=== PATIENT | female | born 1960 | race Two or more races ===

== ENCOUNTER 2020-11-11 16:01 | Emergency (ER) | payer OTHER, SELFPAY ==
[2020-11-11 16:04] VITALS: BP 137/73; PULSE 86; RESP 16; TEMP 37; O2SAT 97; BMI 23.7
--- NOTE | 2020-11-11 16:45 | ED.SKABFB ---
HPI - Skin/Abscess/Foreign Bdy General Chief complaint: Skin/Abscess/Foreign Body Stated complaint: rash Time Seen by Provider: 11/11/20 16:44 History of Present Illness HPI narrative: Patient complains of bug bites and rash on forehead arms and legs after going to an outdoor constitution party several days ago, there is no fever no chills no difficulty breathing no throat swelling Related Data Previous Rx's Medication Instructions Recorded cetirizine 10 mg capsule 10 mg PO DAILY PRN #14 cap 11/11/20 prednisone 20 mg tablet 40 mg PO DAILY 3 Days #6 tab 11/11/20 Allergies Allergy/AdvReac Type Severity Reaction Status Date / Time No Known Allergies Allergy Verified 11/11/20 16:08 [No Known Allergies*] Review of Systems Review of Systems: Positive for rash Negatives no fever no chills no dizziness no headache no sore throat no difficulty breathing or swallowing no neck pain no shortness of breath no vomiting Yes all other systems are reviewed and are negative PMFSH Past Medical History Source: nursing notes reviewed Medical History (Updated 11/11/20 @ 16:56 by JAH Lee) Depression Hypercholesteremia Hypertension Social History Social History Advance Directives: No Advance Directives Information Provided: No Patient : No Physical Exam Vital Signs: Vital Signs: Last Vital Signs Temp 98.6 F 11/11/20 16:04 Pulse 86 11/11/20 16:04 Resp 16 11/11/20 16:04 BP 137/73 11/11/20 16:04 Pulse Ox 97 11/11/20 16:04 Body Mass Index 23.7 General appearance no distress The head is normocephalic atraumatic The pharynx is clear without swelling or redness The neck is supple Chest is clear to auscultation bilateral Extremities full range of motion x4 The skin there are there is papular rash on arms forehead and head consistent with bug bites, there is no tenderness no fluctuance no vesicular rash no evidence of cellulitis or abscess, no purpura no petechiae Course Course Course Narrative: Patient is treated for itchy rash with prednisone and Zyrtec, well-appearing and is discharged Discharge Plan Discharge Clinical Impression: Rash Patient Disposition: Home, Self-Care Additional Instructions: The rash is likely from insect bites We are treating with prednisone and Zyrtec Follow with primary doctor in 3 or 4 days if not better Return to the ER any time if worse Prescriptions: New cetirizine 10 mg capsule 10 mg PO DAILY PRN (Reason: allergy symptoms) Qty: 14 RF: 0 prednisone 20 mg tablet 40 mg PO DAILY 3 Days Qty: 6 RF: 0
[2020-11-11] MEDS: predniSONE 20 MG TABLET 60 MG PO (16:54)
[2020-11-11] MEDS: Loratadine 10 MG TABLET PO (16:54)
== END 2020-11-11 17:09 | disposition home or self-care (01) ==
PROVIDERS: Emergency Provider Emergency Medicine; PCP Internal Medicine
DX: R21 Rash and other nonspecific skin eruption (principal); I10 Essential (primary) hypertension
CPT/HCPCS: 99283

== ENCOUNTER → 2020-11-22 14:07 | Outpatient (BNVA) | payer OTHER, SELFPAY | PROVIDERS: PCP Internal Medicine; Visit Provider Internal Medicine | DX: R07.2 Precordial pain (principal); R06.02 Shortness of breath; E78.00 Pure hypercholesterolemia, unspecified; E78.5 Hyperlipidemia, unspecified; F32.9 Major depressive disorder, single episode, unspecified; Z87.891 Personal history of nicotine dependence; Z79.52 Long term (current) use of systemic steroids; Z79.899 Other long term (current) drug therapy | CPT/HCPCS: 93005; 99202 ==

== ENCOUNTER → 2020-12-26 08:45 | Outpatient (REF) | payer OTHER, SELFPAY ==
--- NOTE | 2020-12-26 08:49 | CA_ITS ---
Acquisition Time: 2020-12-26 10:34:02 Total Exercise Time: 00:09:13 Test Indications: CP, SOB Medications: SEE CHART Protocol: LUIS Max HR: 157 BPM 96% of Pred: 162 BPM Max BP: 138/068 mmHG Max Work Load: 10.4 METS Exercise stress test with exercise 9 min 13 sec of Luis protocol, with mild sob, no chest discomfort, without arrythmia, with normotensive response to exercise, without EKG changes meeting criteria for ischemia. Test reviewed with Dr Fernandes. Referred By: Eduardo Fernandes Overread By: ALEX NICHOLS
--- NOTE | 2020-12-26 08:49 | CA_ITS ---
Transthoracic Echocardiogram Patient (Last, First, Middle): Sisi Beyer, Gender: Female Date of : 1960 Age: 60 Procedure Date: 12/26/2020 Procedure Type: Transthoracic Echocardiogram Location: OP Height: 160.02 cm Weight: 62.14 kg BSA: 1.65 m2 Heart Rate: bpm BP: 120 / 70 mmHg Ornamental Plaster Sticker: VH/CP Referring MD: Eduardo Fernandes MD Symptoms: R07.2 - Precordial pain Study Quality: Fair ECG Rhythm: Sinus Conclusions: - The left ventricular systolic function is normal. The calculated ejection fraction is 70% by biplane method. - Possible basal inferior septal akinesis. - There is mild calcification of the aortic valve. Findings Left Ventricle Normal left ventricular cavity size. There is mildly increased left ventricular wall thickness. The left ventricular systolic function is normal. The calculated ejection fraction is 70% by biplane method. E/E prime ratio is between 8 and 15 consistent with indeterminate filling pressures. Evidence suggests grade I (mild) diastolic dysfunction. Possible basal inferior septal akinesis. Right Ventricle Normal right ventricular cavity size and systolic function. Atria Both atria are normal in size. Aortic Valve There is a normal trileaflet aortic valve. There is mild calcification of the aortic valve. There is no aortic valve stenosis. There is no aortic valve regurgitation. Mitral Valve The mitral valve appears normal. There is trace mitral valve regurgitation. There is no mitral valve stenosis. Pulmonic Valve The pulmonic valve was not well visualized. Tricuspid Valve Normal tricuspid valve structure. There is trace tricuspid valve regurgitation. The pulmonary artery systolic pressure is normal. Great Vessels The aortic annulus, sinuses of valsalva, and asc aorta are normal in size. Venous The inferior vena cava is normal in size and collapses greater than 50% with inspiration. Pericardium/Pleural There is no evidence of pericardial effusion. Prior Study Comparison No prior study available for comparison. Measurements 2D Linear Measurements IVSd: 1.29 0.6-0.9/0.6-1.0 cm LVIDd: 3.87 3.9-5.3/4.2-5.9 cm LVIDd Index: 2.35 2.4-3.2/2.2-3.1 cm/m2 LVIDs: 2.12 2.0-3.6 cm LVPWd: 1.23 0.7-1.1 cm Ao Root: 3.30 2.1-3.5 cm LA Diam: 3.10 2.7-3.8/3.0-4.0 cm LAIDs Index: 1.88 1.5-2.3 cm/m2 LV Mass: 211.07 67-162/88-224 g LV Mass Index: 127.92 43-95/49-115 g/m2 LVOT Diam: 2.00 3.0+(-)1.3 cm 2D Systolic Function EF 4C: 70.00 >55% EF 2C: 68.60 >55% EF BiP: 69.70 >55% Mitral Valve MV Pk E: 0.72 MV PK A: 0.69 MV Decel Time: 266.00 E/A: 1.00 E'Lateral: 9.25 E'Medial: 5.44 E/E' Med: 13.20 E/E' Lat: 7.80 PHT: 78.00 MVA PHT: 2.82 Decel [place]: 2.71 Aortic Valve AoV Pk Jackson: 1.34 AoV Mn Jackson: 1.01 AoV VTI: 0.32 AoV Pk Grad: 7.00 Aov Mn Grad: 4.00 DANNY Cont.VTI: 1.86 LVOT LVOT Pk Jackson: 0.94 LVOT Mn Jackson: 0.60 LVOT VTI: 0.19 LVOT Pk Grad: 4.00 LVOT Mn Grad: 2.00 LVOT Diam: 2.00 LVOT Area: 3.14 Diastolic Function MV Pk E: 0.72 MV Pk A: 0.69 E/A: 1.00 E'Medial: 5.44 E/E' Med: 13.20 E' Laterial: 9.25 E/E' Lat: 7.80 Right Ventricle TAPSE (mm): 22.00 TVS' Jackson: 10.00 Tricuspid Valve TR Pk Jackson: 1.73 TR Pk Grad: 12.00 RA Press: 8.00 RVSP: 23.00 Great Vessels Aorta Ao Root-2D: 3.30 2.0-3.7 cm Ao Asc: 3.40 2.1-3.4 cm Ao Arch: 3.10 Updated in Other Vendor System with Status of Final Eduardo Fernandes MD electronically signed on 12/26/2020 11:38:51 AM with status of Final
== END ==
LOC: HO.CARD 08:45
PROVIDERS: Visit Provider Internal Medicine
DX: R07.2 Precordial pain (principal)
CPT/HCPCS: 93017; 93306

== ENCOUNTER 2021-01-04 15:56 | Outpatient (REF) | payer OTHER, SELFPAY ==
--- NOTE | ~2021-01-04 | US_ITS ---
EXAMINATION: US RETROPERITONEAL LIMITED (RENAL ONLY) CLINICAL INFORMATION: Hypertension, renal calculus, proteinuria. COMPARISON: Renal ultrasound 02/25/2017. CT abdomen and pelvis 09/03/2011. TECHNIQUE: Real-time imaging of the kidneys. FINDINGS: RIGHT KIDNEY: 10.0 x 4.7 x 4.0 cm (SAG x AP x TRV). The kidney is normal in size, contour, and echogenicity. Renal cortical thickness is normal. There are 2 cysts measuring 1.8 x 1.6 x 1.6 cm in the upper pole and 0.5 cm in the midpole. There are multiple small echogenic foci with twinkle artifact suggestive of small stones. Largest cluster of stones in the midpole measure 4 x 7 mm. No hydronephrosis. LEFT KIDNEY: 9.3 x 4.7 x 4.5 cm (SAG x AP x TRV). The kidney is normal in size, contour, and echogenicity. Renal cortical thickness is normal. There is a 1 x 0.8 x 0.6 cm cyst in the upper pole. There is a 1.1 x 0.9 x 1.1 cm minimally complex cyst with single thin septation in the midpole. There are multiple echogenic foci with twinkle artifact suggestive of stones. Largest cluster of stones measure 6 x 7 mm in the lower pole. No hydronephrosis. US/US renal BI IMPRESSION: Bilateral renal stones. Small bilateral renal cysts.
== END 2021-01-04 15:57 | disposition home or self-care (01) ==
LOC: HO.US 15:56
PROVIDERS: PCP Internal Medicine; Visit Provider Internal Medicine Hypertension Specialist
DX: I10 Essential (primary) hypertension (principal); M19.90 Unspecified osteoarthritis, unspecified site; E78.00 Pure hypercholesterolemia, unspecified; N20.2 Calculus of kidney with calculus of ureter; R80.9 Proteinuria, unspecified
CPT/HCPCS: 76775

== ENCOUNTER 2021-01-15 15:28 | Outpatient (REF) | payer OTHER, SELFPAY ==
[2021-01-15 16:10] LABS: Appearance Urine CLEAR; Color Urine YELLOW; Glucose Urine UA NEG (NEG); Leukocyte Esterase Urine NEG (NEG); Nitrite Urine NEG (NEG); PH 6.5 (5.0-8.0); Urine Blood 1+ (NEG); Urine Ketones NEG (NEG); Urine Protein 1+ MG/DL (NEG-TRACE)
[2021-01-15 16:20] LABS: Bacteria Urine 1+ /LPF; Squamous Epithelial Cell Urine 1+ /LPF; WBC Urine 0-2 /HPF (0-4)
[2021-01-15 16:30] LABS: Creatinine Urine 44.42 mg/dL; Protein/Creatinine Ratio, Ur 0.81 (<0.2); Total Protein Urine Random 36 mg/dL (<12)
[2021-01-15 16:38] LABS: Alanine Aminotransferase 16 U/L (0-31); Albumin Level 4.5 g/dL (3.5-5.0); Alkaline Phosphatase 52 U/L (39-117); Anion Gap 12 (12-20); Aspartate Amino Transferase 20 U/L (5-31); Bilirubin Total 0.2 mg/dL (0.0-1.0); Blood Urea Nitrogen 32 mg/dL (9-16); Calcium 10.4 mg/dL (8.4-10.2); Carbon Dioxide 27 mmol/L (22-29); Chloride 107 mmol/L (96-108); Estimated Glomerular Filt Rate 34; Glucose Random 92 mg/dL (60-115); Potassium 4.4 mmol/L (3.3-5.1); Sodium 142 mmol/L (135-145); Total Protein 7.2 g/dL (6.5-8.0)
[2021-01-16 16:05] LABS: Calcium (PTHI) 10.4 mg/dL (8.6-10.4); PTHI 49 pg/mL (14-64)
== END 2021-01-15 15:29 | disposition home or self-care (01) ==
LOC: HO.LAB 15:28
PROVIDERS: PCP Internal Medicine; Visit Provider Internal Medicine Hypertension Specialist
DX: I12.9 Hypertensive chronic kidney disease with stage 1 through stage 4 chronic kidney disease, or unspecified chronic kidney disease (principal); N18.9 Chronic kidney disease, unspecified
CPT/HCPCS: 36415; 80053; 81001; 83970; 84156

== ENCOUNTER → 2021-02-06 15:17 | Outpatient (BNVA) | payer OTHER, SELFPAY | PROVIDERS: PCP Internal Medicine; Visit Provider Nurse Practitioner Family | DX: R07.2 Precordial pain (principal); I10 Essential (primary) hypertension; E78.5 Hyperlipidemia, unspecified; R93.1 Abnormal findings on diagnostic imaging of heart and coronary circulation; F17.200 Nicotine dependence, unspecified, uncomplicated; Z71.6 Tobacco abuse counseling; Z79.899 Other long term (current) drug therapy | CPT/HCPCS: 99212 ==

== ENCOUNTER 2021-02-23 11:53 | Outpatient (REF) | payer OTHER, SELFPAY ==
[2021-02-24 10:36] LABS: Anti Glomerular Basement Memb <1.0 AI
[2021-02-24 14:02] LABS: Complement C3 141 mg/dL (83-193)
[2021-02-26 14:27] LABS: Prot Elec - Alpha1 0.3 g/dL (0.2-0.3); Prot Elec - Alpha2 0.7 g/dL (0.5-0.9); Prot Elec - Beta 1 0.4 g/dL (0.4-0.6); Prot Elec - Beta 2 0.3 g/dL (0.2-0.5); Prot Elec - Gamma 0.9 g/dL (0.8-1.7); Prot Elec - Total Protein 6.6 g/dL (6.1-8.1)
[2021-02-26 15:26] LABS: Anti Nuclear Antibody Pattern Nuclear, Speckled; Anti Nuclear Antibody Screen POSITIVE (NEGATIVE)
[2021-02-28 14:31] LABS: Atypical P-ANCA Titer 1:20 titer (<1:20); Neutrophil Cyto Ab Screen ATYP P-ANCA POS (NEGATIVE)
== END 2021-02-23 11:54 | disposition home or self-care (01) ==
LOC: HO.LAB 11:53
PROVIDERS: PCP Internal Medicine; Visit Provider Internal Medicine Hypertension Specialist
DX: I12.9 Hypertensive chronic kidney disease with stage 1 through stage 4 chronic kidney disease, or unspecified chronic kidney disease (principal); R80.0 Isolated proteinuria
CPT/HCPCS: 83520; 84165; 86021; 86038; 86039; 86160; 86335

== ENCOUNTER → 2021-02-27 10:30 | Outpatient (REF) | payer OTHER, SELFPAY ==
--- NOTE | 2021-02-27 10:34 | CA_ITS ---
Acquisition Time: 2021-02-27 11:23:09 Total Exercise Time: 00:09:20 Test Indications: Dyspnea Medications: AMLODIPINE ATORVASTATIN CETIRIZINE CLONAZAPAM FENOFIBRATE LISINOPRIL OMEPRAZOLE PRAZOSIN PREDNISONE SERTRALINE Protocol: LUIS Max HR: 155 BPM 95% of Pred: 162 BPM Max BP: 190/060 mmHG Max Work Load: 10.4 METS Exercise stress test with exercise 9 min 20 sec of Luis protocol, with report of mild left chest burning, mild sob, without arrythmia, with normotensive response to exercise, without EKG changes meeting criteria for ischemia. In recovery her chest discomfort quickly resolved. Echo images obtained by tech at rest and immediately post peak exercise. Definity contrast used. Test reviewed with Dr Fernandes. Referred By: Jen Graves Overread By: JEN GRAVES
== END ==
LOC: HO.CARD 10:30
PROVIDERS: Visit Provider Nurse Practitioner Family
DX: R07.2 Precordial pain (principal)
CPT/HCPCS: 93350; Q9957

== ENCOUNTER 2021-03-14 15:41 | Outpatient (REF) | payer OTHER, SELFPAY ==
[2021-03-14 16:11] LABS: INTERNATIONAL NORM RATIO 0.9 (0.9-1.1); Prothrombin Time 10.6 SEC (9.9-13.0)
[2021-03-15 08:56] LABS: HBS Num1 0.57 mIU/mL (0-7.99); ~Hepatitis B Surface Antibody NONREACTIVE (Nonreactive); ~Hepatitis C Antibody Nonreactive (Nonreactive)
[2021-03-16 10:00] LABS: Hepatitis B Core Antibody IgM NON-REACTIVE (NON-REACTIVE)
== END 2021-03-14 15:42 | disposition home or self-care (01) ==
LOC: HO.LAB 15:41
PROVIDERS: PCP Internal Medicine; Visit Provider Internal Medicine Hypertension Specialist
DX: Z01.84 Encounter for antibody response examination (principal); I12.9 Hypertensive chronic kidney disease with stage 1 through stage 4 chronic kidney disease, or unspecified chronic kidney disease; N18.9 Chronic kidney disease, unspecified
CPT/HCPCS: 36415; 85610; 86705; 86706; 86803

== ENCOUNTER 2021-03-30 18:15 | Emergency (ER) | payer OTHER, SELFPAY ==
[2021-03-30 18:44] VITALS: BP 163/86; PULSE 91; RESP 18; TEMP 36.8; O2SAT 97
[2021-03-30 18:59] LABS: COVID-19 Test Negative (Negative); IDNOW Serial# 9DD0AD1C
[2021-03-30 19:31] VITALS: BMI 24.3
--- NOTE | 2021-03-30 19:41 | ED.URI ---
HPI - URI/Sore Throat General Chief Complaint: Upper Respiratory Symptoms <JAH Armstrong - Last Filed: 03/30/21 20:15> Stated Complaint: sore throat headache cough body aches <JAH Armstrong Last Filed: 03/30/21 20:15> Time Seen by Provider: 03/30/21 19:17 <JAH Armstrong Last Filed: 03/30/21 20:15> Source: patient <JAH Armstrong Last Filed: 03/30/21 20:15> Mode of arrival: ambulatory <JAH Armstrong Last Filed: 03/30/21 20:15> Limitations: no limitations <JAH Armstrong Last Filed: 03/30/21 20:15> History of Present Illness HPI Narrative: 60 y/o Trinid[place]-speaking female with history of HLD, CKD, HTN, active smoker who presents to the ER with headache, body aches, sore throat, chills, mild dry cough for the last 2 days. She is fully vaccinated with all 3 COVID vaccines. She presents with her who has similar symptoms. She admits that did have a gathering with her family members for [employer] and 1 member of the family was sick. It is unknown whether they of COVID or not. She denies any shortness of breath or chest pain. She states the worst symptom is the pounding headache. She is eating and drinking normally. She takes Tylenol for the headache with brief improvement. <JAH Armstrong Last Filed: 03/30/21 20:15> MD elicited complaint: cough, sore throat and other (Body aches and headache) <JAH Armstrong Last Filed: 03/30/21 20:15> Onset (ago): day(s) (Two) <JAH Armstrong Last Filed: 03/30/21 20:15> Consistency: constant <JAH Armstrong Last Filed: 03/30/21 20:15> Severity: moderate <JAH Armstrong Last Filed: 03/30/21 20:15> Able to tolerate fluids by mouth: Yes <JAH Armstrong Last Filed: 03/30/21 20:15> Exacerbating factors: nothing <JAH Armstrong - Last Filed: 03/30/21 20:15> Relieving factors: nothing <JAH Armstrong Last Filed: 03/30/21 20:15> Context: sick contacts <JAH Armstrong Last Filed: 03/30/21 20:15> Associated symptoms: chills, myalgias, diaphoresis, headache, nasal congestion, sore throat and cough <JAH Armstrong - Last Filed: 03/30/21 20:15> Treatments prior to arrival: none <JAH Armstrong Last Filed: 03/30/21 20:15> Related Data Home Medications: Home Medications Medication Instructions Recorded Confirmed amlodipine 5 mg tablet 5 mg PO DAILY 11/22/20 02/06/21 atorvastatin 80 mg tablet 80 mg PO BEDTIME 11/22/20 02/06/21 clonazepam 0.5 mg tablet 0 mg PO 11/22/20 02/06/21 fenofibrate 160 mg tablet 160 mg PO DAILY 11/22/20 02/06/21 omeprazole 20 mg capsule,delayed 20 mg PO DAILY 11/22/20 02/06/21 release prazosin 2 mg capsule 2 mg PO BEDTIME 11/22/20 02/06/21 sertraline 100 mg tablet 100 mg PO BID 11/22/20 02/06/21 lisinopril 20 mg tablet 20 mg PO DAILY 02/06/21 02/06/21 Previous Rx's Medication Instructions Recorded cetirizine 10 mg capsule 10 mg PO DAILY PRN #14 cap 11/11/20 prednisone 20 mg tablet 40 mg PO DAILY 3 Days #6 tab 11/11/20 <JAH Armstrong Last Filed: 03/30/21 20:15> Allergies/Adverse Reactions: Allergies Allergy/AdvReac Type Severity Reaction Status Date / Time No Known Allergies Allergy Verified 02/06/21 15:23 [No Known Allergies*] <JAH Armstrong Last Filed: 03/30/21 20:15> Review of Systems Review of Systems: Constitutional: No Fever, + Chills ENT/Mouth:+ sore throat, No Rhinorrhea, No Swallowing Difficulty Cardiovascular: No Chest Pain, No SOB Respiratory: + Cough, No Sputum, No Wheezing, No dyspnea Gastrointestinal: No Nausea, No Vomiting, No abdominal Pain Musculoskeletal: No joint pain, + Myalgias Skin: No Skin Lesions, No rash Neuro: + Weakness, No Numbness, No Dizziness,+ Headache Heme/Lymph: No Lymphadenopathy <JAH Armstrong - Last Filed: 03/30/21 20:15> [facility] Past Medical History Medical History: Medical History Depression Hypercholesteremia Hypertension <JAH rAmstrong - Last Filed: 03/30/21 20:15> Surgical History: Surgical History Hx of arthroscopy Hx of tubal ligation <JAH Armstrong - Last Filed: 03/30/21 20:15> Family History Family History: Family History Mother HTN (hypertension) <JAH Armstrong - Last Filed: 03/30/21 20:15> Social History Social History: Social History Alcohol intake: never Patient Tobacco Use Status: Former Tobacco user Quit Date: 2018 Years Smoked: 30 +/- only smokes cigars once in a blue Advance Directives: No <JAH Armstrong - Last Filed: 03/30/21 20:15> Physical Exam Vital Signs: Vital Signs: Last Vital Signs Temp 98.3 F 03/30/21 18:44 Pulse 91 03/30/21 18:44 Resp 18 03/30/21 18:44 BP 163/86 H 03/30/21 18:44 Pulse Ox 97 03/30/21 18:44 BMI result Body Mass Index 24.3 <JAH Armstrong - Last Filed: 03/30/21 20:15> Vital Signs: Last Vital Signs Temp 98.3 F 03/30/21 18:44 Pulse 91 03/30/21 18:44 Resp 18 03/30/21 18:44 BP 163/86 H 03/30/21 18:44 Pulse Ox 97 12/31/21 18:44 BMI result Body Mass Index 24.3 <Amaya Davis NP - Last Filed: 03/30/21 21:00> Appearance: Alert. Oriented X3. No acute distress. Eyes: Normal inspection ENT: Pharynx with mild generalized erythema, no tonsillar exudate or swelling. Neck: Normal inspection. Neck supple. CVS: Normal heart rate and rhythm. Pulses normal. Respiratory: No respiratory distress. Breath sounds normal. Skin: Skin warm and dry. Normal skin color. Normal skin turgor. No rashes. Extremities: No lower extremity edema. Neuro: Oriented X 3. Grossly normal, nonfocal <JAH Armstrong - Last Filed: 03/30/21 20:15> Course Course Course Narrative: 60 y/o female presenting with headache, body aches, sore throat and dry cough for last 2 days after known exposure to a sick the member. She is fully vaccinated against COVID. Her vital signs and a physical exam are unremarkable. She appears nontoxic. Her rapid COVID antigen is negative. Will proceed with viral PCR. Highly suspicious for COVID-19. <JAH Armstrong - Last Filed: 03/30/21 20:15> 60 y/o female presenting with headache, body aches, sore throat and dry cough for last 2 days after known exposure to a sick the member. She is fully vaccinated against COVID. Her vital signs and a physical exam are unremarkable. She appears nontoxic. Her rapid COVID antigen is negative. Will proceed with viral PCR. Highly suspicious for COVID-19. COVID test is negative. Plan of care is to discharge with supportive measures. <Amaya Davis NP - Last Filed: 03/30/21 21:00> MDM - URI/Sore Throat Lab Data Labs: Lab Results 03/30/21 03/30/21 Range/Units 18:40 19:41 COVID-19 (JAN) Negative (Negative) COVID-19 Clin Com See Note Influenza Type A (PCR) NEGATIVE (Negative) Influenza Type B (PCR) NEGATIVE (Negative) RSV RNA Qual (PCR) NEGATIVE (Negative) SARS-CoV-2 RNA (RT-PCR) NEGATIVE (Negative) <JAH Armstrong - Last Filed: 03/30/21 20:15> Lab Results 03/30/21 03/30/21 Range/Units 18:40 19:41 COVID-19 (JAN) Negative (Negative) COVID-19 Clin Com See Note Influenza Type A (PCR) NEGATIVE (Negative) Influenza Type B (PCR) NEGATIVE (Negative) RSV RNA Qual (PCR) NEGATIVE (Negative) SARS-CoV-2 RNA (RT-PCR) NEGATIVE (Negative) <Amaya Davis NP - Last Filed: 03/30/21 21:00> Discharge Plan Discharge Clinical Impression: Acute viral syndrome <JAH Armstrong - Last Filed: 03/30/21 20:15> Patient Disposition: Home, Self-Care <JAH Armstrong - Last Filed: 03/30/21 20:15> Instructions: Viral Syndrome (ED) <JAH Armstrong - Last Filed: 03/30/21 20:15> Additional Instructions: Your COVID test was negative. Influenza and RSV are also negative. Please use supportive measures, Tylenol 650 mg every 6 hours and alternate with Motrin 600 mg every 6 hours as needed for fever control and muscle aches. Drink plenty of fluids. Thank you for choosing this emergency department for evaluation. Please follow-up with primary care physician as needed. Return to the emergency department for any new, concerning, or worsening symptoms. <JAH Armstrong - Last Filed: 03/30/21 20:15> Prescriptions: No Action cetirizine 10 mg capsule 10 mg PO DAILY PRN (Reason: allergy symptoms) Qty: 14 RF: 0 prednisone 20 mg tablet 40 mg PO DAILY 3 Days Qty: 6 RF: 0 omeprazole 20 mg capsule,delayed release(DR/EC) 20 mg PO DAILY RF: 0 amlodipine 5 mg tablet 5 mg PO DAILY RF: 0 prazosin 2 mg capsule 2 mg PO BEDTIME RF: 0 sertraline 100 mg tablet 100 mg PO BID RF: 0 clonazepam 0.5 mg tablet 0 mg PO RF: 0 fenofibrate 160 mg tablet 160 mg PO DAILY RF: 0 atorvastatin 80 mg tablet 80 mg PO BEDTIME RF: 0 lisinopril 20 mg tablet 20 mg PO DAILY RF: 0 <JAH Armstrong - Last Filed: 03/30/21 20:15>
[2021-03-30] MEDS: Acetaminophen 325 MG TABLET 650 MG PO (20:19)
[2021-03-30 20:30] LABS: Influenza A PCR NEGATIVE (Negative); Influenza B PCR NEGATIVE (Negative); Resp Syncy Virus RNA Qual PCR NEGATIVE (Negative); SARS COV2 PCR INHOUSE NEGATIVE (Negative)
== END 2021-03-30 21:40 | disposition home or self-care (01) ==
PROVIDERS: Physician Assistant; Emergency Provider Internal Medicine; PCP Internal Medicine
DX: B34.9 Viral infection, unspecified (principal); Z20.822 Contact with and (suspected) exposure to COVID-19; I10 Essential (primary) hypertension; F17.200 Nicotine dependence, unspecified, uncomplicated; Z79.02 Long term (current) use of antithrombotics/antiplatelets
CPT/HCPCS: 0241U; 36415; 87635; 99283; 99284

== ENCOUNTER 2021-04-16 11:52 | Outpatient (REF) | payer OTHER, SELFPAY ==
[2021-04-16 12:16] LABS: MANUAL DIFF FLAG NO
[2021-04-16 12:28] LABS: Basophils Percent Auto 0.5 % (0-2); Eosinophils Absolute Auto 0.2 X10*3/uL (0.0-0.4); Eosinophils Percent Auto 1.8 % (0-4); Hemoglobin 12.8 g/dl (12.0-16.0); Imm Gran Abs Auto 0.03 X10*3/uL (0.00-0.03); Imm Gran Pct Auto 0.4 % (0.0-0.4); Lymphocytes Absolute Auto 3.1 X10*3/uL (1.2-4.9); Lymphocytes Percent Auto 35.9 % (20-40); Mean Corpuscular HGB Conc 33.7 g/dl (31.0-35.0); Mean Corpuscular Hemoglobin 30.3 pg (27.0-33.0); Mean Platelet Volume 10.9 fL (9.4-12.3); Monocytes Absolute Auto 0.7 X10*3/uL (0.1-1.2); Monocytes Percent Auto 8.7 % (2-11); Neutrophils Absolute Auto 4.5 x10*3/uL (2.0-8.3); Neutrophils Percent Auto 52.7 % (45-73); Platelet Count 226 X10*3/uL (160-400); Red Blood Count 4.22 X10*6/uL (4.20-5.50); Red Cell Distribution Width 13.5 % (11.0-16.0); White Blood Count 8.5 X10*3/uL (4.8-10.8)
[2021-04-16 12:50] LABS: Anion Gap 9 (12-20); Blood Urea Nitrogen 21 mg/dL (9-16); Calcium 9.9 mg/dL (8.4-10.2); Carbon Dioxide 27 mmol/L (22-29); Chloride 111 mmol/L (96-108); Estimated Glomerular Filt Rate 41; Potassium 3.9 mmol/L (3.3-5.1); Sodium 143 mmol/L (135-145)
== END 2021-04-16 11:53 | disposition home or self-care (01) ==
LOC: HO.LAB 11:52
PROVIDERS: PCP Internal Medicine; Visit Provider Internal Medicine Hypertension Specialist
DX: N18.4 Chronic kidney disease, stage 4 (severe) (principal)
CPT/HCPCS: 36415; 80051; 82310; 82565; 84520; 85025

== ENCOUNTER → 2021-04-18 14:41 | Outpatient (BNVA) | payer OTHER, SELFPAY | PROVIDERS: PCP Internal Medicine; Visit Provider Nurse Practitioner Family | DX: R07.2 Precordial pain (principal); R93.1 Abnormal findings on diagnostic imaging of heart and coronary circulation; I10 Essential (primary) hypertension; E78.5 Hyperlipidemia, unspecified; F17.200 Nicotine dependence, unspecified, uncomplicated | CPT/HCPCS: 99212 ==

== ENCOUNTER 2021-09-12 15:27 | Outpatient (REF) | payer OTHER, SELFPAY ==
[2021-09-12 16:06] LABS: Hemoglobin 12.6 g/dl (12.0-16.0); Mean Corpuscular HGB Conc 34.1 g/dl (31.0-35.0); Mean Corpuscular Hemoglobin 30.1 pg (27.0-33.0); Mean Corpuscular Volume 88.3 fL (80.0-98.0); Platelet Count 207 X10*3/uL (160-400); Red Blood Count 4.19 X10*6/uL (4.20-5.50); White Blood Count 9.9 X10*3/uL (4.8-10.8)
[2021-09-12 16:47] LABS: Anion Gap 14 (12-20); Blood Urea Nitrogen 43 mg/dL (9-16); Calcium 9.7 mg/dL (8.4-10.2); Carbon Dioxide 24 mmol/L (22-29); Chloride 107 mmol/L (96-108); Estimated Glomerular Filt Rate 25; Potassium 4.1 mmol/L (3.3-5.1); Sodium 141 mmol/L (135-145)
[2021-09-12 18:07] LABS: Creatinine Urine 145.05 mg/dL; Protein/Creatinine Ratio, Ur 0.63 (<0.2); Total Protein Urine Random 92 mg/dL (<12)
== END 2021-09-12 15:28 | disposition home or self-care (01) ==
LOC: HO.LAB 15:27
PROVIDERS: PCP Internal Medicine; Visit Provider Internal Medicine Hypertension Specialist
DX: N18.31 Chronic kidney disease, stage 3a (principal)
CPT/HCPCS: 36415; 80051; 82310; 82565; 84156; 84520; 85027

== ENCOUNTER 2021-10-15 09:59 | Outpatient (REF) | payer OTHER, SELFPAY ==
[2021-10-15 10:17] LABS: MANUAL DIFF FLAG NO
[2021-10-15 10:46] LABS: Basophils Percent Auto 0.5 % (0-2); Eosinophils Absolute Auto 0.2 X10*3/uL (0.0-0.4); Hematocrit 39.2 % (37.0-47.0); Hemoglobin 13.3 g/dl (12.0-16.0); Imm Gran Abs Auto 0.02 X10*3/uL (0.00-0.03); Imm Gran Pct Auto 0.3 % (0.0-0.4); Lymphocytes Absolute Auto 2.8 X10*3/uL (1.2-4.9); Lymphocytes Percent Auto 35.4 % (20-40); Mean Corpuscular HGB Conc 33.9 g/dl (31.0-35.0); Mean Corpuscular Hemoglobin 30.1 pg (27.0-33.0); Mean Corpuscular Volume 88.7 fL (80.0-98.0); Mean Platelet Volume 10.7 fL (9.4-12.3); Monocytes Absolute Auto 0.7 X10*3/uL (0.1-1.2); Neutrophils Absolute Auto 4.2 x10*3/uL (2.0-8.3); Neutrophils Percent Auto 52.8 % (45-73); Platelet Count 222 X10*3/uL (160-400); Red Blood Count 4.42 X10*6/uL (4.20-5.50); Red Cell Distribution Width 13.2 % (11.0-16.0); White Blood Count 7.9 X10*3/uL (4.8-10.8)
[2021-10-15 11:53] LABS: Alanine Aminotransferase 11 U/L (0-31); Albumin Level 4.2 g/dL (3.5-5.0); Alkaline Phosphatase 71 U/L (39-117); Anion Gap 11 (12-20); Aspartate Amino Transferase 14 U/L (5-31); Bilirubin Total 0.4 mg/dL (0.0-1.0); Blood Urea Nitrogen 21 mg/dL (9-16); Calcium 9.6 mg/dL (8.4-10.2); Carbon Dioxide 26 mmol/L (22-29); Chloride 111 mmol/L (96-108); Cholesterol 272 mg/dL; Estimated Glomerular Filt Rate 50; Glucose Random 88 mg/dL (60-115); HDL Cholesterol 41 mg/dL; LDL Cholesterol Calculated 179 mg/dl; Potassium 4.1 mmol/L (3.3-5.1); Sodium 144 mmol/L (135-145); Total Protein 6.8 g/dL (6.5-8.0); Triglycerides 264 mg/dL
== END 2021-10-15 10:00 | disposition home or self-care (01) ==
LOC: HO.LAB 09:59
PROVIDERS: Absent Provider Internal Medicine Hypertension Specialist; PCP Internal Medicine; Visit Provider Internal Medicine
DX: I12.9 Hypertensive chronic kidney disease with stage 1 through stage 4 chronic kidney disease, or unspecified chronic kidney disease (principal); N18.9 Chronic kidney disease, unspecified; E78.00 Pure hypercholesterolemia, unspecified
CPT/HCPCS: 36415; 80053; 80061; 85025

== ENCOUNTER 2021-10-16 14:11 | Outpatient (REF) | payer OTHER, SELFPAY ==
--- NOTE | ~2021-10-16 | US_ITS ---
EXAMINATION: US RETROPERITONEAL LIMITED (RENAL ONLY) CLINICAL INFORMATION: Chronic kidney disease. COMPARISON: Ultrasound renal 01/04/2021. Ultrasound renals only 02/25/2017. CT abdomen and pelvis 09/03/2011. TECHNIQUE: Real-time imaging of the kidneys. FINDINGS: RIGHT KIDNEY: 10.2 x 4.4 x 6.4 cm (SAG x AP x TRV). The kidney is normal in size and contour. Kidney is mildly echogenic. Renal cortical thickness is normal. No renal calculi or hydronephrosis. Benign-appearing renal cysts measuring up to 1.1 cm, no follow-up imaging recommended. Multiple nonobstructing renal stones the largest measuring 6 mm in the lower pole previously 7 mm in the lower pole. LEFT KIDNEY: 10.1 x 5.42 x 5.5 cm (SAG x AP x TRV). Kidney is mildly echogenic. The kidney is normal in size and contour. Renal cortical thickness is normal. No renal calculi or hydronephrosis. Benign-appearing renal cysts measuring 1.4 cm, no follow-up imaging recommended. Nonobstructing renal stones measuring up to 4 mm in the lower pole previously 6 millimeters. US/US renal BI IMPRESSION: Echogenic kidneys suggestive of medical renal disease. Bilateral nonobstructing renal stones measuring up to 6 mm in the right lower pole.
== END 2021-10-16 14:12 | disposition home or self-care (01) ==
LOC: HO.HMGCX 14:11
PROVIDERS: Visit Provider Internal Medicine Hypertension Specialist
DX: I12.9 Hypertensive chronic kidney disease with stage 1 through stage 4 chronic kidney disease, or unspecified chronic kidney disease (principal); N18.9 Chronic kidney disease, unspecified; E78.5 Hyperlipidemia, unspecified; R07.2 Precordial pain; R93.1 Abnormal findings on diagnostic imaging of heart and coronary circulation; Z79.899 Other long term (current) drug therapy; Z87.891 Personal history of nicotine dependence
CPT/HCPCS: 76775; 93005; 99212

== ENCOUNTER 2022-01-18 09:36 | Outpatient (REF) | payer OTHER, SELFPAY ==
[2022-01-18 11:21] LABS: Anion Gap 14 (12-20); Blood Urea Nitrogen 24 mg/dL (9-16); Calcium 10.4 mg/dL (8.4-10.2); Carbon Dioxide 25 mmol/L (22-29); Chloride 110 mmol/L (96-108); Estimated Glomerular Filt Rate 52; Sodium 145 mmol/L (135-145)
[2022-01-18 11:22] LABS: Alanine Aminotransferase 15 U/L (0-31); Albumin Level 4.2 g/dL (3.5-5.0); Alkaline Phosphatase 83 U/L (39-117); Anion Gap 14 (12-20); Aspartate Amino Transferase 15 U/L (5-31); Bilirubin Total 0.5 mg/dL (0.0-1.0); Blood Urea Nitrogen 25 mg/dL (9-16); Calcium 10.2 mg/dL (8.4-10.2); Carbon Dioxide 25 mmol/L (22-29); Chloride 109 mmol/L (96-108); Cholesterol 292 mg/dL; Estimated Glomerular Filt Rate 53; Glucose Random 88 mg/dL (60-115); HDL Cholesterol 44 mg/dL; LDL Cholesterol Calculated 182 mg/dl; Potassium 3.9 mmol/L (3.3-5.1); Sodium 144 mmol/L (135-145); Total Protein 7.1 g/dL (6.5-8.0); Triglycerides 330 mg/dL
== END 2022-01-18 09:37 | disposition home or self-care (01) ==
LOC: HO.LAB 09:36
PROVIDERS: Absent Provider Internal Medicine Hypertension Specialist; PCP Internal Medicine; Visit Provider Internal Medicine
DX: E78.00 Pure hypercholesterolemia, unspecified (principal); I12.9 Hypertensive chronic kidney disease with stage 1 through stage 4 chronic kidney disease, or unspecified chronic kidney disease; N18.32 Chronic kidney disease, stage 3b; Z72.0 Tobacco use
CPT/HCPCS: 36415; 80051; 80053; 80061; 82310; 82565; 84520

== ENCOUNTER 2022-04-22 09:55 | Outpatient (REF) | payer OTHER, SELFPAY ==
[2022-04-22 13:04] LABS: Alanine Aminotransferase 14 U/L (0-31); Albumin Level 4.3 g/dL (3.5-5.0); Alkaline Phosphatase 108 U/L (39-117); Anion Gap 14 (12-20); Aspartate Amino Transferase 19 U/L (5-31); Bilirubin Total 0.5 mg/dL (0.0-1.0); Blood Urea Nitrogen 28 mg/dL (9-16); Calcium 10.1 mg/dL (8.4-10.2); Carbon Dioxide 26 mmol/L (22-29); Chloride 109 mmol/L (96-108); Cholesterol 170 mg/dL; Estimated Glomerular Filt Rate 31; Glucose Random 91 mg/dL (60-115); HDL Cholesterol 41 mg/dL; LDL Cholesterol Calculated 81 mg/dl; Potassium 3.8 mmol/L (3.3-5.1); Sodium 145 mmol/L (135-145); Triglycerides 242 mg/dL
== END 2022-04-22 09:56 | disposition home or self-care (01) ==
LOC: HO.LAB 09:55
PROVIDERS: PCP Internal Medicine; Visit Provider Internal Medicine
DX: Z00.00 Encounter for general adult medical examination without abnormal findings (principal); E78.00 Pure hypercholesterolemia, unspecified; I12.9 Hypertensive chronic kidney disease with stage 1 through stage 4 chronic kidney disease, or unspecified chronic kidney disease; N18.9 Chronic kidney disease, unspecified; Z72.0 Tobacco use
CPT/HCPCS: 36415; 80053; 80061

== ENCOUNTER 2022-05-03 18:39 | Emergency (ER) | payer OTHER, SELFPAY ==
--- NOTE | ~2022-05-03 | CT_ITS ---
EXAMINATION: CT ABDOMEN AND PELVIS WITHOUT CONTRAST CLINICAL INFORMATION: Flank pain COMPARISON: CT abdomen pelvis 09/03/2011 TECHNIQUE: Multidetector volumetric imaging was performed from the superior aspect of the liver through the pubic symphysis. Sagittal and coronal reformatted images were obtained on the technologist's workstation. This CT examination was performed using dose optimization techniques as appropriate, variously including the following: *Automated exposure control *Adjustment of mA and/or kV according to patient size (this includes techniques or standardized protocols for targeted exams where dose is matched to indication/reason for exam; i.e. extremities or head) *Use of iterative reconstruction technique DLP: 448 mGy-cm FINDINGS: LUNG BASES: The visualized lung bases are unremarkable. LIVER, GALLBLADDER, AND BILIARY TREE: The liver is normal in size, shape, and attenuation. No focal hepatic lesion or biliary ductal dilatation is present. The gallbladder is unremarkable with no evidence of radiopaque gallstones, gallbladder wall thickening, or obvious pericholecystic inflammatory changes. PANCREAS: Unremarkable. SPLEEN: Unremarkable. ADRENAL GLANDS: Unremarkable. KIDNEYS AND URETERS: Multiple nonobstructive bilateral renal calculi. No hydronephrosis. No ureteral stone. BLADDER: Unremarkable. GASTROINTESTINAL TRACT: There are scattered diverticula of the colon. There is no diverticulitis. There is no bowel wall thickening /edema. There is no bowel obstruction. There is a moderate volume of stool in the colon. The appendix is normal . The small bowel loops are unremarkable. The stomach is normal. There is no hiatal hernia. ABDOMINAL WALL: No significant hernia is appreciated. LYMPH NODES: Normal. VASCULAR: Scattered vascular calcifications of aorta and iliac arteries. No aneurysm. PELVIC VISCERA: Unremarkable. OSSEOUS STRUCTURES: Degenerative spondylosis of the lower thoracic spine. CT/CT abdomen pelvis wo IV con IMPRESSION: 1. No acute abnormality CT scan abdomen pelvis. 2. Multiple nonobstructive bilateral renal calculi. No ureteral calculi or hydronephrosis. Fleischner guidelines were followed.
[2022-05-03 19:00] VITALS: BP 154/52; PULSE 82; RESP 16; TEMP 36.4; O2SAT 99; BMI 24.0
--- NOTE | 2022-05-03 19:04 | ED_ITS ---
HPI - Female Genitourinary General Chief complaint: Urogenital-Female <JAH Willard - Last Filed: 05/03/22 19:05> Stated complaint: Pain in back and breast area <JAH Willard - Last Filed: 05/03/22 19:05> Time Seen by Provider: 05/03/22 21:46 <JAH Willard - Last Filed: 05/03/22 19:05> Source: patient, family () and calender operator helper <Reshma Latif MD - Last Fi led: 05/03/22 22:55> Mode of arrival: ambulatory <Reshma Latif MD - Last Filed: 05/03/22 22:55> History of Present Illness HPI Narrative: This is a 61-year-old female who presents with a history renal failure and states that for the past month she has had left flank pain that at times will radiate into the anterior abdomen and has not been associated with any shortness of breath, fevers, chills, urinary symptoms, chest pain. Patient states she was evaluated by her primary care doctor on 04/24/2022 informed that her pain may be due to muscle pain. Patient states that over the past 2 the pain has become more persistent. Patient does see a terrazzo worker helper who she states is associated with [facility] [place] and has a follow-up appointment on 05/13/2022. <Reshma Latif MD - Last Filed: 05/03/22 22:55> Related Data Home medications: Home Medications Medication Instructions Recorded Confirmed amlodipine 5 mg tablet 5 mg PO DAILY 11/22/20 10/16/21 atorvastatin 80 mg tablet 80 mg PO BEDTIME 11/22/20 10/16/21 prazosin 2 mg capsule 2 mg PO BEDTIME 11/22/20 10/16/21 sertraline 100 mg tablet 100 mg PO BID 11/22/20 10/16/21 clonazepam 0.5 mg tablet 0.5 mg PO DAILY 10/16/21 10/16/21 <JAH Willard - Last Filed: 05/03/22 19:05> Allergies/Adverse reactions: Allergies Allergy/AdvReac Type Severity Reaction Status Date / Time No Known Allergies Allergy Verified 05/03/22 19:04 [No Known Allergies*] <JAH Willard - Last Filed: 05/03/22 19:05> Review of Systems Review of Systems: Pertinent positives and negatives as stated in HPI <Reshma Latif MD - Last Filed: 05/03/22 22:55> [facility] Past Medical History Source: nursing notes reviewed <Reshma Latif MD - Last Filed: 05/03/22 22:55> Medical History: Medical History Depression Hypercholesteremia Hypertension <JAH Willard - Last Filed: 05/03/22 19:05> Surgical History: Surgical History Hx of arthroscopy Hx of tubal ligation <JAH Willard - Last Filed: 05/03/22 19:05> Family History Family History: Family History Mother HTN (hypertension) <JAH Willard - Last Filed: 05/03/22 19:05> Social History Social History: Social History Alcohol intake: never Patient Tobacco Use Status: Former Tobacco user Quit Date: 2018 Years Smoked: 30 +/- only smokes cigars once in a blue Advance Directives: No Advance Directives Information Provided: No <JAH Willard - Last Filed: 05/03/22 19:05> Physical Exam Vital Signs: Vital Signs: Last Vital Signs Temp 97.7 F 05/03/22 21:59 Pulse 74 05/03/22 21:59 Resp 16 05/03/22 21:59 BP 125/68 05/03/22 21:59 Pulse Ox 99 05/03/22 21:59 O2 Del Method 05/03/22 21:59 BMI result Body Mass Index 24.0 <JAH Willard - Last Filed: 05/03/22 19:05> Vital Signs: Last Vital Signs Temp 97.7 F 05/03/22 21:59 Pulse 74 05/03/22 21:59 Resp 16 05/03/22 21:59 BP 125/68 05/03/22 21:59 Pulse Ox 99 05/03/22 21:59 O2 Del Method 05/03/22 21:59 BMI result Body Mass Index 24.0 VITAL SIGNS: Reviewed. GENERAL: Well developed, well nourished, in no acute distress. HEAD: Normocephalic/atraumatic EYES: PERRLA, EOMI EARS: Ext canals without abnormality OROPHARYNX: no oral lesions noted, posterior pharynx clear LUNGS: Normal breath sounds. No adventitious sounds or accessory muscle use. SpO2<99> CARDIOVASCULAR: Regular rate and rhythm without noted murmurs, no JVD or lower extremity edema. ABDOMEN: Soft, non-tender, non-distended with bowel sounds, no CVA tenderness, tenderness on palpation over left flank that is reproducible. MUSCULOSKELETAL: No tenderness, deformities, or effusions noted on gross inspection. EXTREMITIES: No cyanosis, clubbing or edema. SKIN: Inspection of the skin reveals no rashes NEUROLOGIC: Alert and oriented x 4. Strength and sensation to light touch were grossly intact x 4. <Reshma Latif MD - Last Filed: 05/03/22 22:55> Course Course Course Narrative: RME performed by Margareth Tyler PA-C. Patient is a 61 year old female presenting to the emergency department with low back pain that radiates into her low abdomen. Labs, UA ordered. Patient placed back in the waiting room pending results and room availability. <JAH Willard - Last Filed: 05/03/22 19:05> Medical Decision Making Medical Decision Making MDM Narrative: 61-year-old female in whom I suspect musculoskeletal pain. Labs, imaging, urinalysis. On my review of all investigations my interpretation is that this patient has stable chronic renal dysfunction, stable chronic hematuria, stable chronic renal calculi that are nonobstructing in nature, and suspect the possibility musculoskeletal pain contributing to her pain and discomfort. I have no c linical suspicion for infectious etiology. All results discussed with her at bedside, she was provided with Tylenol and a lidocaine patch and discharged home in stable condition. Patient has follow-up appointment with terrazzo worker helper on 05/13/22. Also, patient has been provided with a Urology referral for the hematuria. <Reshma Latif MD - Last Filed: 05/03/22 22:55> Differential Diagnosis Differential Diagnoses: The differential diagnosis associated with the presentation includes <Reshma Latif MD - Last Filed: 05/03/22 22:55> Please see the discussion above <Reshma Latif MD - Last Filed: 05/03/22 22:55> Lab Data MDM Lab Attestation statement: I reviewed the patient's lab results. <Reshma Latif MD - Last Filed: 05/03/22 22:55> Please see the discussion above <Reshma Latif MD - Last Filed: 05/03/22 22:55> Result Diagrams: 05/03/22 19:48 05/03/22 19:48 <JAH Willard - Last Filed: 05/03/22 19:05> Labs: Lab Results 05/03/22 05/03/22 05/03/22 Range/Units 19:48 19:48 19:48 WBC 10.5 (4.8-10.8) X10*3/uL RBC 4.24 (4.20-5.50) X10*6/uL Hgb 12.8 (12.0-16.0) g/dl Hct 37.7 (37.0-47.0) % MCV 88.9 (80.0-98.0) fL MCH 30.2 (27.0-33.0) pg MCHC 34.0 (31.0-35.0) g/dl RDW 14.1 (11.0-16.0) % Plt Count 213 (160-400) X10*3/uL MPV 10.0 (9.4-12.3) fL Immature Gran % (Auto) 0.3 (0.0-0.4) % Neut % (Auto) 54.8 (45-73) % Lymph % (Auto) 33.1 (20-40) % Payne % (Auto) 9.4 (2-11) % Eos % (Auto) 1.7 (0-4) % Baso % (Auto) 0.7 (0-2) % Lymph # (Auto) 3.5 (1.2-4.9) X10*3/uL Payne # (Auto) 1.0 (0.1-1.2) X10*3/uL Eos # (Auto) 0.2 (0.0-0.4) X10*3/uL Baso # (Auto) 0.1 (0.0-0.2) X10*3/uL Abs Immat Gran (auto) 0.03 (0.00-0.03) X10*3/uL Absolute Neuts (auto) 5.7 (2.0-8.3) x10*3/uL Absolute Nucleated RBC 0.000 (0.0-0.012) X10*3/uL Nucleated RBC % (auto) 0.0 (0.0-0.2) /100WBC Sodium 141 (135-145) mmol/L Potassium 3.7 (3.3-5.1) mmol/L Chloride 105 (96-108) mmol/L Carbon Dioxide 23 (22-29) mmol/L Anion Gap 17 (12-20) BUN 30 H (9-16) mg/dL Creatinine 1.48 H (0.5-1.4) mg/dL Estim Creat Clear Calc 33.8 Estimated GFR 36 Random Glucose 90 (60-115) mg/dL Calcium 10.2 (8.4-10.2) mg/dL Total Bilirubin 0.4 (0.0-1.0) mg/dL AST 20 (5-31) U/L ALT 19 (0-31) U/L Alkaline Phosphatase 99 (39-117) U/L Total Protein 7.2 (6.5-8.0) g/dL Albumin 4.4 (3.5-5.0) g/dL Urine Color Yellow Urine Appearance Clear Urine pH 5.5 (5.0-9.0) Ur Specific [place] 1.015 (1.005-1.025) Urine Protein 300 (3+) H (Neg-Trace) mg/dL Urine Glucose (UA) Negative (Negative) mg/dL Urine Ketones Negative (Negative) mg/dL Urine Blood Moderate (2+) H (Negative) Urine Nitrite Negative (Negative) Ur Leukocyte Esterase Negative (Negative) Urine RBC 3-5 H (0-2) /HPF Urine WBC 0-5 (0-5) /HPF Ur Squamous Epith Cells 0-2 (0-2) /HPF Urine Bacteria None Seen (None Seen) Hyaline Casts 0-2 (0-2) /LPF <JAH Willard - Last Filed: 05/03/22 19:05> Lab Results 02/03/23 02/03/23 02/03/23 Range/Units 19:48 19:48 19:48 WBC 10.5 (4.8-10.8) X10*3/uL RBC 4.24 (4.20-5.50) X10*6/uL Hgb 12.8 (12.0-16.0) g/dl Hct 37.7 (37.0-47.0) % MCV 88.9 (80.0-98.0) fL MCH 30.2 (27.0-33.0) pg MCHC 34.0 (31.0-35.0) g/dl RDW 14.1 (11.0-16.0) % Plt Count 213 (160-400) X10*3/uL MPV 10.0 (9.4-12.3) fL Immature Gran % (Auto) 0.3 (0.0-0.4) % Neut % (Auto) 54.8 (45-73) % Lymph % (Auto) 33.1 (20-40) % Payne % (Auto) 9.4 (2-11) % Eos % (Auto) 1.7 (0-4) % Baso % (Auto) 0.7 (0-2) % Lymph # (Auto) 3.5 (1.2-4.9) X10*3/uL Payne # (Auto) 1.0 (0.1-1.2) X10*3/uL Eos # (Auto) 0.2 (0.0-0.4) X10*3/uL Baso # (Auto) 0.1 (0.0-0.2) X10*3/uL Abs Immat Gran (auto) 0.03 (0.00-0.03) X10*3/uL Absolute Neuts (auto) 5.7 (2.0-8.3) x10*3/uL Absolute Nucleated RBC 0.000 (0.0-0.012) X10*3/uL Nucleated RBC % (auto) 0.0 (0.0-0.2) /100WBC Sodium 141 (135-145) mmol/L Potassium 3.7 (3.3-5.1) mmol/L Chloride 105 (96-108) mmol/L Carbon Dioxide 23 (22-29) mmol/L Anion Gap 17 (12-20) BUN 30 H (9-16) mg/dL Creatinine 1.48 H (0.5-1.4) mg/dL Estim Creat Clear Calc 33.8 Estimated GFR 36 Random Glucose 90 (60-115) mg/dL Calcium 10.2 (8.4-10.2) mg/dL Total Bilirubin 0.4 (0.0-1.0) mg/dL AST 20 (5-31) U/L ALT 19 (0-31) U/L Alkaline Phosphatase 99 (39-117) U/L Total Protein 7.2 (6.5-8.0) g/dL Albumin 4.4 (3.5-5.0) g/dL Urine Color Yellow Urine Appearance Clear Urine pH 5.5 (5.0-9.0) Ur Specific [place] 1.015 (1.005-1.025) Urine Protein 300 (3+) H (Neg-Trace) mg/dL Urine Glucose (UA) Negative (Negative) mg/dL Urine Ketones Negative (Negative) mg/dL Urine Blood Moderate (2+) H (Negative) Urine Nitrite Negative (Negative) Ur Leukocyte Esterase Negative (Negative) Urine RBC 3-5 H (0-2) /HPF Urine WBC 0-5 (0-5) /HPF Ur Squamous Epith Cells 0-2 (0-2) /HPF Urine Bacteria None Seen (None Seen) Hyaline Casts 0-2 (0-2) /LPF <Reshma Latif MD - Last Filed: 05/03/22 22:55> Radiology Impression Radiologist Impression: My interpretation is in agreement with radiology's impression of the imaging study. <Reshma Latif MD - Last Filed: 05/03/22 22:55> External Record Review External record reviewed: Outpatient record and Prior outpatient labs <Reshma Latif MD - Last Filed: 05/03/22 22:55> Chronic Conditions Patient?s care impacted by: Hypertension <Reshma Latif MD - Last Filed: 05/03/22 22:55> CKD <Reshma Latif MD - Last Filed: 05/03/22 22:55> Discharge Plan Discharge Clinical Impression: Musculoskeletal pain, Calculus, renal, Hematuria, CKD (chronic kidney disease) <JAH Willard - Last Filed: 05/03/22 19:05> Patient Disposition: Home, Self-Care <JAH Willard - Last Filed: 05/03/22 19:05> Instructions: Musculoskeletal Pain (ED), Hematuria (ED), Low Oxalate Diet (ED), Chronic Kidney Disease (ED) <JAH Willard - Last Filed: 05/03/22 19:05> Additional Instructions: 1. Reanudar todos los medicamentos caseros. 2. Tylenol 1000 mg, por v?a oral, cada 6 horas seg?n sea necesario para controlar el dolor. No exceda los 4000 mg dentro de las 24 horas. 3. Parche de lidoca?na, aplique en el ?jacob de m?xima sensibilidad edil se indica en el empaque exterior. 4. Se le bashir proporcionado ariela referencia de Urolog?a para ariela evaluaci?n adicional de juarez hematuria. 5. Nikole un seguimiento con juarez proveedor de atenci?n primaria el lunes por la ma?ashanti para ariela reevaluaci?n. Regrese a la noman de emergencias si los s?ntomas empeoran. 1. Resume all home medications. 2. Tylenol 1000 mg, orally, every 6 hours as needed for pain control. Do not exceed 4000 mg within 24 hours. 3. Lidocaine patch, apply to area of maximal tenderness as directed on the outsi de packaging. 4. You have been provided with a Urology referral for further evaluation of your hematuria. 5. Please follow-up with your primary care provider on Friday morning for re- evaluation. Return to the ER for any worsening symptoms. <JAH Willard - Last Filed: 05/03/22 19:05> Prescriptions: No Action amlodipine 5 mg tablet 5 mg PO DAILY prazosin 2 mg capsule 2 mg PO BEDTIME sertraline 100 mg tablet 100 mg PO BID atorvastatin 80 mg tablet 80 mg PO BEDTIME clonazepam 0.5 mg tablet 0.5 mg PO DAILY <JAH Willard - Last Filed: 05/03/22 19:05> Referrals: Brodie Jacobson MD [Physician] - (Persistent hematuria) <JAH Willard - Last Filed: 05/03/22 19:05> Print Language: Syriac <JAH Willard - Last Filed: 05/03/22 19:05>
[2022-05-03 19:53] LABS: MANUAL DIFF FLAG NO
[2022-05-03 19:54] LABS: Basophils Absolute Auto 0.1 X10*3/uL (0.0-0.2); Basophils Percent Auto 0.7 % (0-2); Eosinophils Absolute Auto 0.2 X10*3/uL (0.0-0.4); Eosinophils Percent Auto 1.7 % (0-4); Hematocrit 37.7 % (37.0-47.0); Hemoglobin 12.8 g/dl (12.0-16.0); Imm Gran Abs Auto 0.03 X10*3/uL (0.00-0.03); Imm Gran Pct Auto 0.3 % (0.0-0.4); Lymphocytes Absolute Auto 3.5 X10*3/uL (1.2-4.9); Lymphocytes Percent Auto 33.1 % (20-40); Mean Corpuscular Hemoglobin 30.2 pg (27.0-33.0); Mean Corpuscular Volume 88.9 fL (80.0-98.0); Monocytes Percent Auto 9.4 % (2-11); Neutrophils Absolute Auto 5.7 x10*3/uL (2.0-8.3); Neutrophils Percent Auto 54.8 % (45-73); Platelet Count 213 X10*3/uL (160-400); Red Blood Count 4.24 X10*6/uL (4.20-5.50); Red Cell Distribution Width 14.1 % (11.0-16.0); White Blood Count 10.5 X10*3/uL (4.8-10.8)
[2022-05-03 19:58] LABS: Appearance Urine Clear; Color Urine Yellow; Glucose Urine UA Negative (Negative); Leukocyte Esterase Urine Negative (Negative); Nitrite Urine Negative (Negative); PH 5.5 (5.0-9.0); Specific Gravity - Urine 1.015 (1.005-1.025); UMIC TRIGGER UACC YES; Urine Blood Moderate (2+) (Negative); Urine Ketones Negative (Negative); Urine Protein 300 (3+) mg/dL (Neg-Trace)
[2022-05-03 20:17] LABS: Bacteria Urine None Seen (None Seen); Hyaline Casts Urine 0-2 /LPF (0-2); Squamous Epithelial Cell Urine 0-2 /HPF (0-2); WBC Urine 0-5 /HPF (0-5)
[2022-05-03 20:49] LABS: Alanine Aminotransferase 19 U/L (0-31); Albumin Level 4.4 g/dL (3.5-5.0); Alkaline Phosphatase 99 U/L (39-117); Anion Gap 17 (12-20); Aspartate Amino Transferase 20 U/L (5-31); Bilirubin Total 0.4 mg/dL (0.0-1.0); Blood Urea Nitrogen 30 mg/dL (9-16); Calcium 10.2 mg/dL (8.4-10.2); Carbon Dioxide 23 mmol/L (22-29); Chloride 105 mmol/L (96-108); Creatinine Clr Calc Pharmacy 33.8; Estimated Glomerular Filt Rate 36; Glucose Random 90 mg/dL (60-115); Potassium 3.7 mmol/L (3.3-5.1); Sodium 141 mmol/L (135-145); Total Protein 7.2 g/dL (6.5-8.0)
[2022-05-03 21:59] VITALS: BP 125/68; PULSE 74; RESP 16; TEMP 36.5; O2SAT 99
--- NOTE | 2022-05-03 22:31 | PC.NURSE ---
Pt aox4 resting at the bedside with family member. Breaths are even and unlabored. Abd soft and nontended. Skin warm pink and dry. Reports left side flank pain that radiates to lower back and abd. Pain /. Ct results pending. Pt aware of plan of care.
[2022-05-03] MEDS: Lidocaine 4 % Patch ADH..PATCH 1 PATCH TRANSDERMA (23:12)
[2022-05-03] MEDS: Acetaminophen 325 MG TABLET 975 MG PO (23:13)
--- NOTE | 2022-05-03 23:19 | PC.NURSE ---
Pt aox4. Medicated as ordered. Pt tolerated well. Discharge instructions reviewed with pt. Pt verbalizes understanding.
== END 2022-05-03 23:20 | disposition home or self-care (01) ==
PROVIDERS: Emergency Provider Student in an Organized Health Care Education/Training Program
DX: N20.0 Calculus of kidney (principal); R10.9 Unspecified abdominal pain; I12.9 Hypertensive chronic kidney disease with stage 1 through stage 4 chronic kidney disease, or unspecified chronic kidney disease; N18.9 Chronic kidney disease, unspecified; M54.50 Low back pain, unspecified; R31.9 Hematuria, unspecified; Z79.899 Other long term (current) drug therapy
CPT/HCPCS: 36415; 74176; 80053; 81001; 85025; 99284

== ENCOUNTER 2022-05-08 11:07 | Outpatient (REF) | payer OTHER, SELFPAY ==
[2022-05-08 12:56] LABS: Anion Gap 17 (12-20); Blood Urea Nitrogen 22 mg/dL (9-16); Carbon Dioxide 22 mmol/L (22-29); Chloride 108 mmol/L (96-108); Estimated Glomerular Filt Rate 47; Glucose Random 100 mg/dL (60-115); Sodium 143 mmol/L (135-145)
[2022-05-08 13:47] LABS: Creatinine Urine 69.19 mg/dL; Protein/Creatinine Ratio, Ur 2.66 (<0.2); Total Protein Urine Random 184 mg/dL (<12)
== END 2022-05-08 11:08 | disposition home or self-care (01) ==
LOC: HO.LAB 11:07
PROVIDERS: PCP Internal Medicine; Visit Provider Internal Medicine Hypertension Specialist
DX: N18.31 Chronic kidney disease, stage 3a (principal)
CPT/HCPCS: 36415; 80048; 84156

== ENCOUNTER → 2022-07-09 14:11 | Outpatient (BNVA) | payer OTHER, SELFPAY | PROVIDERS: PCP Internal Medicine; Referring Provider Internal Medicine; Visit Provider Nurse Practitioner Family | DX: R07.2 Precordial pain (principal); I10 Essential (primary) hypertension; E78.5 Hyperlipidemia, unspecified; R93.1 Abnormal findings on diagnostic imaging of heart and coronary circulation; Z87.891 Personal history of nicotine dependence | CPT/HCPCS: 99212 ==

== ENCOUNTER 2022-07-18 12:33 | Outpatient (REF) | payer OTHER, SELFPAY ==
[2022-07-18 13:13] LABS: Anion Gap 13 (12-20); Blood Urea Nitrogen 25 mg/dL (9-16); Calcium 10.3 mg/dL (8.4-10.2); Carbon Dioxide 27 mmol/L (22-29); Chloride 107 mmol/L (96-108); Estimated Glomerular Filt Rate 34; Glucose Random 103 mg/dL (60-115); Potassium 4.4 mmol/L (3.3-5.1); Sodium 143 mmol/L (135-145)
[2022-07-18 16:03] LABS: Creatinine Urine 197.36 mg/dL
[2022-07-18 16:20] LABS: Protein/Creatinine Ratio, Ur 1.16 (<0.2); Total Protein Urine Random 228 mg/dL (<12)
== END 2022-07-18 12:34 | disposition home or self-care (01) ==
LOC: HO.LAB 12:33
PROVIDERS: PCP Internal Medicine; Visit Provider Internal Medicine Hypertension Specialist
DX: N18.32 Chronic kidney disease, stage 3b (principal)
CPT/HCPCS: 36415; 80048; 84156

== ENCOUNTER 2022-08-14 07:56 | Outpatient (REF) | payer OTHER, SELFPAY ==
[2022-08-14 08:13] LABS: MANUAL DIFF FLAG NO
[2022-08-14 08:47] LABS: Basophils Absolute Auto 0.1 X10*3/uL (0.0-0.2); Basophils Percent Auto 0.8 % (0-2); Eosinophils Absolute Auto 0.2 X10*3/uL (0.0-0.4); Eosinophils Percent Auto 2.6 % (0-4); Hematocrit 38.8 % (37.0-47.0); Hemoglobin 13.2 g/dl (12.0-16.0); Imm Gran Abs Auto 0.03 X10*3/uL (0.00-0.03); Imm Gran Pct Auto 0.4 % (0.0-0.4); Lymphocytes Absolute Auto 2.7 X10*3/uL (1.2-4.9); Lymphocytes Percent Auto 37.9 % (20-40); Mean Corpuscular Hemoglobin 30.3 pg (27.0-33.0); Mean Platelet Volume 10.7 fL (9.4-12.3); Monocytes Absolute Auto 0.7 X10*3/uL (0.1-1.2); Monocytes Percent Auto 9.4 % (2-11); Neutrophils Absolute Auto 3.5 x10*3/uL (2.0-8.3); Neutrophils Percent Auto 48.9 % (45-73); Platelet Count 228 X10*3/uL (160-400); Red Blood Count 4.36 X10*6/uL (4.20-5.50); Red Cell Distribution Width 14.1 % (11.0-16.0); White Blood Count 7.2 X10*3/uL (4.8-10.8)
[2022-08-14 09:17] LABS: Alanine Aminotransferase 15 U/L (0-31); Albumin Level 4.1 g/dL (3.5-5.0); Alkaline Phosphatase 98 U/L (39-117); Anion Gap 10 (12-20); Aspartate Amino Transferase 16 U/L (5-31); Bilirubin Total 0.5 mg/dL (0.0-1.0); Blood Urea Nitrogen 19 mg/dL (9-16); Calcium 10.1 mg/dL (8.4-10.2); Carbon Dioxide 28 mmol/L (22-29); Chloride 112 mmol/L (96-108); Estimated Glomerular Filt Rate 49; Glucose Random 93 mg/dL (60-115); Potassium 4.2 mmol/L (3.3-5.1); Sodium 146 mmol/L (135-145); Total Protein 6.9 g/dL (6.5-8.0)
== END 2022-08-14 07:57 | disposition home or self-care (01) ==
LOC: HO.LAB 07:56
PROVIDERS: PCP Internal Medicine; Visit Provider Internal Medicine
DX: I12.9 Hypertensive chronic kidney disease with stage 1 through stage 4 chronic kidney disease, or unspecified chronic kidney disease (principal); N18.9 Chronic kidney disease, unspecified; K57.30 Diverticulosis of large intestine without perforation or abscess without bleeding; K59.00 Constipation, unspecified; R14.0 Abdominal distension (gaseous)
CPT/HCPCS: 36415; 80053; 85025

== ENCOUNTER 2022-11-10 12:38 | Emergency (ER) | payer OTHER, SELFPAY ==
--- NOTE | ~2022-11-10 | XR_ITS ---
EXAMINATION: XR WRIST, LEFT XR HAND, LEFT CLINICAL INFORMATION: Left wrist mass COMPARISON: None available. TECHNIQUE: PA, lateral, and oblique views of the left wrist and PA, lateral, and oblique views of the left hand FINDINGS: LEFT WRIST: Soft tissue swelling or mass adjacent to the volar radial styloid. This measures approximately 1 x 1.5 cm. No fracture. Alignment is anatomic. Joint spaces are maintained. No erosions or soft tissue calcifications. LEFT HAND: The bones and soft tissues are normal. No fracture. Alignment is anatomic. Joint spaces are maintained. No erosions or soft tissue calcifications. XR/XR hand wrist LT IMPRESSION: 1. Soft tissue swelling or mass adjacent to the volar radial styloid. 2. Otherwise normal left hand and wrist.
--- NOTE | ~2022-11-10 | US_ITS ---
Examination: Ultrasound extremity nonvascular. CLINICAL INDICATION: Lump left lateral wrist. COMPARISON: Left hand and wrist 11/10/2022. TECHNIQUE: Limited ultrasound imaging through the left lateral recess is performed. FINDINGS: There is a anechoic well-defined fluid collection along the lateral left wrist measuring 2.1 x 1.1 x 0.7). It is most likely ganglion. Some echogenic areas are seen within the cyst likely debris. Communication to left wrist is not seen on this exam. It lies lateral to the radial styloid process. US/US extremity nonvascular brannon IMPRESSION: Likely ganglion cyst along the lateral left wrist measuring 2.1 x 1.1 x 0.7 cm. Communication to the left wrist is not seen on this exam.
[2022-11-10 12:43] VITALS: BP 146/72; PULSE 83; RESP 16; TEMP 36.6; O2SAT 98; BMI 24.8
--- NOTE | 2022-11-10 12:50 | ED.GENADULT ---
HPI - General Adult General Chief complaint: Extremity Injury, Upper Stated complaint: Lump L wrist Time Seen by Provider: 11/10/22 12:55 Source: patient Mode of arrival: ambulatory Limitations: no limitations History of Present Illness HPI narrative: 62 yold female presents to the ED for lump on left wrist for one week that is painful. patient deneis any trauma, swelling, redness, red streaks, fever, or chills. Related Data Home Medications Medication Instructions Recorded Confirmed amlodipine 5 mg tablet 5 mg PO DAILY 11/22/20 07/09/22 atorvastatin 80 mg tablet 80 mg PO BEDTIME 11/22/20 07/09/22 prazosin 2 mg capsule 2 mg PO BEDTIME 11/22/20 07/09/22 sertraline 100 mg tablet 100 mg PO BID 11/22/20 07/09/22 clonazepam 0.5 mg tablet 0.5 mg PO DAILY 10/16/21 07/09/22 quetiapine 100 mg tablet 100 mg PO BEDTIME 07/09/22 07/09/22 rosuvastatin 40 mg tablet 40 mg PO DAILY 07/09/22 07/09/22 Allergies Allergy/AdvReac Type Severity Reaction Status Date / Time No Known Allergies Allergy Verified 11/10/22 12:42 [No Known Allergies*] Review of Systems Review of Systems: mass on left wrist Yes all other systems are reviewed and are negative [facility] Past Medical History Medical History Depression Hypercholesteremia Hypertension Surgical History Hx of arthroscopy Hx of tubal ligation Family History Family History Mother HTN (hypertension) Social History Social History Alcohol intake: never Patient Tobacco Use Status: Former Tobacco user Quit Date: 2018 Years Smoked: 30 +/- only smokes cigars once in a blue Advance Directives: No Physical Exam ED Vital Signs: Vital Signs - 24 hr 11/10/22 12:43 11/10/22 15:15 Temperature 98 F 98.4 F Pulse Rate 83 66 Respiratory Rate 16 16 Blood Pressure 146/72 H 109/59 L Pulse Oximetry 98 98 Oxygen Delivery Method Room Air Room Air BMI result Body Mass Index 24.8 Const General: cooperative, healthy appearing, comfortable, no acute distress, well developed, alert and awake Orientation/consciousness: oriented to person, oriented to place, oriented to time and patient oriented x3 [facility] Head: Yes normal to inspection, Yes No palpable skull fracture present, Yes normocephalic, Yes atraumatic and No abrasion Eyes General: appearance normal, both eyes and all related structures Neck Neck: Yes normal visual inspection, Yes full ROM, Yes no lymphadenopathy, Yes no meningeal signs, Yes trachea midline, Yes supple, No anterior neck swelling and No tender Chest Chest palpation & inspection: normal inspection of the chest and normal palpation of entire chest wall Resp Effort & Inspection: normal respiratory effort and able to speak in complete sentences Auscultation: clear to auscultation bilaterally Cardio Jugular venous distension: no JVD Heart sounds: S1 normal heart sound present and S2 normal heart sound present GI Inspection: Yes normal to inspection and No abdominal wall ecchymosis Palpation (GI): Soft to palpation, nontender, no guarding and not rigid General: No CVA tenderness and Yes no CVA tenderness Back/Spine/Pelvis Back: no CVA tenderness, No CVA tenderness and No back tenderness Skin General skin exam: no rashes or lesions noted and elasticity normal Neuro General: oriented to person, oriented to place, oriented to time, patient oriented x3, gait normal, tone normal, moves all extremities, Normal light touch and pain sensation, no meningeal signs, no focal motor deficits, CN's II-XI intact bilaterally and normal sensation to monofilament Extrem General: Yes normal to inspection and Yes full ROM Elbow/forearm/wrist images: 1. positive for cyst like mass. motor, neuro, vascular exam of extremity is intact Psych Appearance: grossly normal, well kempt and not disheveled Course Course Course Narrative: RmE: 62 yold female presents to the ED for left lump wrist for one week and half. Patient denies increased size of lump, redness, swelling, red streaks, chest pain, or shortness of breath. Patient denies any trauma or being bitten. Physical exam lump is small on the wrist and tender but negative for erythema, foul odor, or pus discharge. Upper extremity motor/nose/mastoids am intact. Differential ganglion cyst versus lipoma. Was sent extremities there is no bone mass or fracture. Will follow-up outpatient Surgeon. Medical Decision Making Medical Decision Making MDM Narrative: 8-year-old female with lump on the left wrist the past week and half. Patient denies any trauma. Patient state lump is feeling improved we negative for any redness, pus discharge, foul odor, red streaks. Upper extremity motor/nose/fast exam intact. X-ray negative for fracture. Ultrasound of extremity confirms ganglion cysts. Patient will follow-up with outpatient surgery Differential Diagnosis Differential Diagnoses: The differential diagnosis associated with the presentation includes (Abscess, ganglion cyst, lipoma, DVT, cellulitis,) Independent Interpretation I performed an independent interpretation of an: Ultrasound and CT Scan Radiology Impression Discussion of test interpretation with radiology: I have reviewed the radiologist's reading. Prescription Management I considered prescription management with: Pain Medication Discharge Plan Discharge Clinical Impression: Ganglion cyst of dorsum of left wrist Patient Disposition: Home, Self-Care Instructions: Ganglion Cysts (ED) Additional Instructions: Millard radiograf?a result? normal. La ecograf?a de la extremidad superior izquierda confirma el quiste ganglionar. Necesita un seguimiento con un cirujano ambulatorio. Regrese al servicio de urgencias por cualquier aumento de la hinchaz?n, enrojecimiento, vetas barnhart, decoloraci?n de color jewel azulado, debilidad o cualquier otro s?ntoma preocupante. Ultrasound result in the ED : US/US extremity nonvascular brannon IMPRESSION: Likely ganglion cyst along the lateral left wrist measuring 2.1 x 1.1 x 0.7 cm. Communication to the left wrist is not seen on this exam.? ? Prescriptions: No Action amlodipine 5 mg tablet 5 mg PO DAILY prazosin 2 mg capsule 2 mg PO BEDTIME sertraline 100 mg tablet 100 mg PO BID atorvastatin 80 mg tablet 80 mg PO BEDTIME clonazepam 0.5 mg tablet 0.5 mg PO DAILY rosuvastatin 40 mg tablet 40 mg PO DAILY quetiapine 100 mg tablet 100 mg PO BEDTIME Ref[place]: [facility] [place] Group] (LEft wrists ganglion cysts) Stand Alone Forms: Work/School Release Interventions: ED Discharge Assessment Last Done: 11/10/22 15:33 Discharge Date/Time: 11/10/22 15:33 Print Language: Portuguese
[2022-11-10 15:15] VITALS: BP 109/59; PULSE 66; RESP 16; TEMP 36.9; O2SAT 98
== END 2022-11-10 15:33 | disposition home or self-care (01) ==
PROVIDERS: Emergency Provider Emergency Medicine Emergency Medical Services; PCP Internal Medicine
DX: L02.414 Cutaneous abscess of left upper limb (principal); M25.532 Pain in left wrist; Z87.891 Personal history of nicotine dependence; Z79.899 Other long term (current) drug therapy
CPT/HCPCS: 73110; 73130; 76882; 99283

== ENCOUNTER 2022-11-14 13:13 | Outpatient (REF) | payer OTHER, SELFPAY ==
[2022-11-14 14:56] LABS: Anion Gap 10 (12-20); Blood Urea Nitrogen 25 mg/dL (9-16); Calcium 10.2 mg/dL (8.4-10.2); Carbon Dioxide 28 mmol/L (22-29); Chloride 110 mmol/L (96-108); Estimated Glomerular Filt Rate 45; Glucose Random 74 mg/dL (60-115); Potassium 3.9 mmol/L (3.3-5.1); Sodium 144 mmol/L (135-145)
== END 2022-11-14 13:14 | disposition home or self-care (01) ==
LOC: HO.LAB 13:13
PROVIDERS: PCP Internal Medicine; Visit Provider Internal Medicine Hypertension Specialist
DX: N17.9 Acute kidney failure, unspecified (principal)
CPT/HCPCS: 36415; 80048

== ENCOUNTER 2022-11-19 08:57 | Outpatient (AMB) | payer OTHER, SELFPAY ==
--- NOTE | 2022-11-19 08:58 | MHC.OFFVIS ---
Intake Vital Signs 11/19/22 09:03 Height 5 ft 3 in Weight 138 lb BMI 24.4 BP 119/64 Blood Pressure Location Lt brachial Position Sitting Pulse 74 Intake Visit Reasons: Ganglion cyst of the wrist Intake Note: This patient presents for [facility] emergency department follow-up for ganglion cyst of the left wrist. Patient c/o; left wrist, reports pain and lump. Sculpture Conservator Required: Yes Sculpture Conservator Name: Piyush Information Interpreted: non-clinical & clinical Accompanied by: Spouse Allergies No Known Allergies [No Known Allergies*] Allergy (Verified 11/19/22 09:04) HPI HPI Comments History of Present Illness Details Patient presents with her for evaluation of a distal left forearm wrist ganglion. He has had this many years time. His increasing size, becoming more symptomatic. She was to have removed. No other issues or complaints. Chart was reviewed patient evaluated [facility] Medical History Depression Hypercholesteremia Hypertension Surgical History Hx of arthroscopy Hx of tubal ligation Family History Mother HTN (hypertension) Social History Alcohol intake: never Patient Tobacco Use Status: Former Tobacco user Quit Date: 2018 Years Smoked: 30 +/- only smokes cigars once in a blue Physical Exam Vital Signs: Last Vital Signs Pulse 74 11/19/22 09:03 BP 119/64 11/19/22 09:03 BMI result Body Mass Index 24.4 Chest Other: Chest breath sounds bilaterally, HS 1 in 2 GI Other: Abdomen soft, benign Extrem Other: Distal volar aspect left lateral wrist large ganglion cyst. Hand otherwise neurovascularly intact Assessment & Plan Assessment & Plan (1) Ganglion cyst: Code(s): M67.40 - Ganglion, unspecified site Plan Risks, benefits, alternatives of left distal wrist ganglion cyst excision reviewed with the patient her included but not limited to bleeding, infection, recurrence, numbness, pain, scarring and the patient wishes to proceed. All questions were answered. Arrangements were made for this. Coding Level of Care Code New Pt Level 5 (69355) Diagnoses Ganglion cyst M67.40
[2022-11-19 09:03] VITALS: BP 119/64; PULSE 74; BMI 24.4
== END 2022-11-19 09:10 | disposition home or self-care (01) ==
PROVIDERS: PCP Internal Medicine; Visit Provider Surgery
DX: M67.432 Ganglion, left wrist (principal)
CPT/HCPCS: 99204

== ENCOUNTER → 2022-11-19 08:57 | Outpatient (BNVA) | payer OTHER, SELFPAY | PROVIDERS: PCP Internal Medicine; Visit Provider Surgery | DX: M67.432 Ganglion, left wrist (principal) | CPT/HCPCS: 99202 ==

== ENCOUNTER 2022-12-05 07:58 | Day surgery (SDC) | payer OTHER, SELFPAY ==
[2022-12-03 08:02] VITALS: BMI 24.4
--- NOTE | 2022-12-04 10:06 | HO.ANESPROP2 ---
Documented by User: Tiara Lyn NP 12/04/22 10:08 HPI - Anesthesia Eval Consult details Narrative: 62yo F for Left Wide Local Excision volar forearm Ganglion cyst PMFSH Active Problems Active Problems: All Active Problems (Updated 11/11/22 @ 00:25 by Maria A Villa) Ganglion cyst (Acute) Abnormal echocardiogram findings without diagnosis (Acute) Smoking (Acute) Other and unspecified hyperlipidemia (Acute) Essential hypertension (Acute) SOB (shortness of breath) (Acute) Precordial chest pain (Acute) Past Medical History Medical History Hypercholesteremia Depression Hypertension Family History Family History Mother HTN (hypertension) Surgical History Surgical History Hx of arthroscopy Hx of tubal ligation Social History Social History Alcohol intake: never Patient Tobacco Use Status: Current someday Tobacco user Tobacco use type: Cigar Years Smoked: 30 +/- only smokes cigars once in a blue Use of substances other than those prescribed or required for medical reasons: No Advance Directives: No Advance Directives Information Provided: Yes Meds Allergies Allergy/AdvReac Type Severity Reaction Status Date / Time No Known Allergies Allergy Verified 11/19/22 09:04 [No Known Allergies*] Home Medications Medication Instructions Recorded Confirmed Last Taken Type amlodipine 5 mg tablet 5 mg PO DAILY 11/22/20 12/05/22 12/05/22 History atorvastatin 80 mg tablet 80 mg PO BEDTIME 11/22/20 07/09/22 Unknown History prazosin 2 mg capsule 2 mg PO BEDTIME 11/22/20 07/09/22 Unknown History sertraline 100 mg tablet 100 mg PO BID 11/22/20 07/09/22 Unknown History clonazepam 0.5 mg tablet 0.5 mg PO DAILY 10/16/21 07/09/22 Unknown History quetiapine 100 mg tablet 100 mg PO BEDTIME 07/09/22 07/09/22 Unknown History rosuvastatin 40 mg tablet 40 mg PO DAILY 07/09/22 07/09/22 Unknown History Exam Exam Date and Time: December 04, 2022 1006 Height,Weight and Vital Signs: Height 5 ft 3 in Weight 62.596 kg Pertinent Lab Results Pertinent Lab Results: Laboratory Tests 08/14/22 11/14/22 08:12 13:22 WBC 7.2 Hgb 13.2 Hct 38.8 Plt Count 228 Sodium 144 Potassium 3.9 Chloride 110 H Carbon Dioxide 28 BUN 25 H Creatinine 1.21 Assessment and Plan Assessment Anesthesia Assessment: Chart Reviewed Documented by User: Juanpablo Rasmussen MD 12/05/22 10:02 PMFSH Past Medical History Medical History Hypercholesteremia Depression Hypertension Family History Family History Mother HTN (hypertension) Family history of problems with anesthesia: No Surgical History Surgical History Hx of arthroscopy Hx of tubal ligation History of Problems with Anesthesia: No Social History Social History Alcohol intake: never Patient Tobacco Use Status: Current someday Tobacco user Tobacco use type: Cigar Years Smoked: 30 +/- only smokes cigars once in a blue Use of substances other than those prescribed or required for medical reasons: No Advance Directives: No Advance Directives Information Provided: Yes Meds Allergies Allergy/AdvReac Type Severity Reaction Status Date / Time No Known Allergies Allergy Verified 11/19/22 09:04 [No Known Allergies*] Home Medications Medication Instructions Recorded Confirmed Last Taken Type amlodipine 5 mg tablet 5 mg PO DAILY 11/22/20 12/05/22 12/05/22 History atorvastatin 80 mg tablet 80 mg PO BEDTIME 11/22/20 07/09/22 Unknown History prazosin 2 mg capsule 2 mg PO BEDTIME 11/22/20 07/09/22 Unknown History sertraline 100 mg tablet 100 mg PO BID 11/22/20 07/09/22 Unknown History clonazepam 0.5 mg tablet 0.5 mg PO DAILY 10/16/21 07/09/22 Unknown History quetiapine 100 mg tablet 100 mg PO BEDTIME 07/09/22 07/09/22 Unknown History rosuvastatin 40 mg tablet 40 mg PO DAILY 07/09/22 07/09/22 Unknown History Exam Airway Mallampati Class: II TM Dist: >3cm Neck ROM: Full Loose/Missing/Broken Teeth: No Assessment and Plan Assessment Anesthesia Assessment: Anesthesia Plan Discussed Final Anesthetic Review Family History of Problems with Anesthesia: No History of Problems with Anesthesia: No NPO: Yes ASA Class: II Final Preanesthetic Review: No Changes in Pt Med Stat, Meds/Allgs Chart Reviewed, Consent Obtained/Reviewed and Anes Risks/Benef Reviewed Patient Risk: Low Procedure Risk: Low Anesthetic Plan Anesthetic Plan: MAC: Disposition: Standard PACU
--- NOTE | 2022-12-04 10:46 | MHC.SHP ---
Pre-Procedural Eval Section A Date of Service: 12/04/22 The patient is an INPATIENT: No Changes since office visit: No Cold of Flu in the past 2 weeks, No New Medical Problems, No Changes in Medication and No Patient answered all questions The History & Physical has been completed within 30 days and I have reviewed it.: Yes Section B Chief Complaint: Ganglion, unspecified site Allergies: Allergies Allergy/AdvReac Type Severity Reaction Status Date / Time No Known Allergies Allergy Verified 11/19/22 09:04 [No Known Allergies*] Plan I have reviewed the history and physical and performed a pertinent physical examination on my patient. No changes have occurred unless specified. Time Spent With Patient Time: Total time managing care of this patient today ____ minutes.
[2022-12-05 08:24] VITALS: BP 141/74; PULSE 61; RESP 16; TEMP 36.6; O2SAT 95
[2022-12-05] MEDS: Lactated Ringers 1,000 ML 100 ML IVCONT (08:34)
--- NOTE | 2022-12-05 10:28 | P.OP_ITS ---
Operative Note Operative Note Date of Service: 12/05/22 Narrative: Preoperative diagnosis: []Lateral volar left wrist ganglion cyst Postop diagnosis: [] same Procedure [] excision left wrist ganglion, mobilization of multilobulated ganglion cyst off of the radial artery. Surgeon: [] Rhys Laminating Machine Tender: [] Type of Anesthesia: [] mass Indication for surgery: [] multilobulated ganglion cyst over the lateral left Volar wrist , intimately adhered to left radial artery. Findings: [] patient brought to the operative room, placed on operative table in supine position, after adequate level of MAC anesthesia was induced, the left upper extremity and hand and wrist were prepped and draped in usual sterile fashion. The proposed incision site over the ganglion cyst was infiltrated 1% lidocaine / 0.5% Marcaine and incision was carried down through skin, through subcutaneous tissue, or a multi lobulated ganglion cyst was identified. This was dissected away from surrounding structures including the radial artery to which it was intimately attached. Meticulous dissection was used to shaved off the the cyst from the radial artery and a small arteriotomy at the adhesions site was closed using a simple over and over 4-0 Prolene suture . Dissection was carried down to the carpal bones where at its base, the cyst was amputated and Ganglion cyst base was cauterized using Bovie. Specimen sent to pathology. The wound was irrigated and secured for hemostasis. It was closed using interrupted inverted dermal 3-0 Vicryl sutures followed by Steri-Strips, 4 x 4 and Karen wrap. Hand was neurovascularly intact at completion of the procedure. The wrist was then placed in wrist immobilizer. Sponge, needle, instrument counts reported to be correct. Patient tolerated procedure well and emerged anesthesia stable condition. EBL minimal
[2022-12-05 10:35] VITALS: BP 142/77; PULSE 67; RESP 14; TEMP 36; O2SAT 98
[2022-12-05 10:50] VITALS: BP 151/83; PULSE 65; RESP 12; O2SAT 99
[2022-12-05 11:05] VITALS: BP 146/77; PULSE 62; RESP 14; TEMP 36.2; O2SAT 99
== END 2022-12-05 12:15 | disposition home or self-care (01) ==
PROVIDERS: PCP Internal Medicine; Visit Provider Surgery
PROC: (CPT 25111; principal; 2022-12-05 09:20)
DX: M67.432 Ganglion, left wrist (principal); I10 Essential (primary) hypertension; E78.00 Pure hypercholesterolemia, unspecified; F32.A Depression, unspecified; Z79.899 Other long term (current) drug therapy; Z87.891 Personal history of nicotine dependence
CPT/HCPCS: 25111; 88304; J0690; J3010

== ENCOUNTER → 2022-12-05 07:58 | Outpatient (BNV) | payer OTHER, SELFPAY | PROVIDERS: PCP Internal Medicine; Visit Provider Surgery | DX: M67.432 Ganglion, left wrist (principal) | CPT/HCPCS: 25111 ==

== ENCOUNTER 2022-12-10 09:50 | Outpatient (AMB) | payer OTHER, SELFPAY ==
[2022-12-10 10:03] VITALS: BP 141/75; PULSE 70; BMI 24.3
--- NOTE | 2022-12-10 10:03 | MHC.OFFVIS ---
Intake Vital Signs 12/10/22 10:03 Height 5 ft 3 in Weight 137 lb BMI 24.3 BP 141/75 H Blood Pressure Location Rt brachial Position Sitting Pulse 70 Intake Visit Reasons: S/p exc Lt wrist/ganglion cyst Intake Note: Patient here s/p exc ganglion cyst on Lt wrist. Reports healing well. Denies bleeding, itch. C/o redness and tenderness. Still taking rx pain meds. Banquet Attendant Required: No Accompanied by: Spouse Allergies No Known Allergies [No Known Allergies*] Allergy (Verified 12/10/22 10:05) HPI HPI Comments History of Present Illness Details Patient presents with her significant other. Aside from incisional discomfort which is improving, patient has no wound issues or complaints. She has occasional wearing her wrist splint. Pathology is benign. PFSH Medical History Hypercholesteremia Depression Hypertension Surgical History Hx of arthroscopy Hx of tubal ligation Family History Mother HTN (hypertension) Social History Alcohol intake: never Patient Tobacco Use Status: Current someday Tobacco user Tobacco use type: Cigar Years Smoked: 30 +/- only smokes cigars once in a blue Physical Exam Vital Signs: Last Vital Signs Pulse 70 12/10/22 10:03 BP 141/75 H 12/10/22 10:03 BMI result Body Mass Index 24.3 Extrem Other: Left upper extremity/ hand are grossly neurovascularly intact. Normal range of motion. Incision is healing uneventfully. Assessment & Plan Assessment & Plan (1) Ganglion cyst: Code(s): M67.40 - Ganglion, unspecified site Plan Patient has been given local instructions as well as to wear her wrist splint and a few exercises for the wrist and will follow-up p.r.n.. Coding Level of Care Code Global (69531) Diagnoses Ganglion cyst M67.40
== END 2022-12-10 10:02 | disposition home or self-care (01) ==
PROVIDERS: PCP Internal Medicine; Visit Provider Surgery
DX: M67.40 Ganglion, unspecified site (principal)
CPT/HCPCS: 99024

== ENCOUNTER → 2022-12-10 09:50 | Outpatient (BNVA) | payer OTHER, SELFPAY | PROVIDERS: PCP Internal Medicine; Visit Provider Surgery ==

== ENCOUNTER 2023-02-19 09:45 | Outpatient (REF) | payer OTHER, SELFPAY ==
[2023-02-19 09:57] LABS: MANUAL DIFF FLAG NO
[2023-02-19 10:35] LABS: Basophils Percent Auto 0.5 % (0-2); Eosinophils Absolute Auto 0.1 X10*3/uL (0.0-0.4); Eosinophils Percent Auto 1.4 % (0-4); Hematocrit 39.8 % (37.0-47.0); Hemoglobin 13.9 g/dl (12.0-16.0); Imm Gran Abs Auto 0.02 X10*3/uL (0.00-0.03); Imm Gran Pct Auto 0.3 % (0.0-0.4); Lymphocytes Absolute Auto 2.6 X10*3/uL (1.2-4.9); Mean Corpuscular HGB Conc 34.9 g/dl (31.0-35.0); Mean Corpuscular Hemoglobin 29.6 pg (27.0-33.0); Mean Corpuscular Volume 84.7 fL (80.0-98.0); Mean Platelet Volume 10.4 fL (9.4-12.3); Monocytes Absolute Auto 0.6 X10*3/uL (0.1-1.2); Monocytes Percent Auto 8.1 % (2-11); Neutrophils Absolute Auto 4.3 x10*3/uL (2.0-8.3); Neutrophils Percent Auto 55.7 % (45-73); Platelet Count 228 X10*3/uL (160-400); Red Cell Distribution Width 13.2 % (11.0-16.0); White Blood Count 7.7 X10*3/uL (4.8-10.8)
[2023-02-19 11:22] LABS: Alanine Aminotransferase 23 U/L (0-31); Albumin Level 4.5 g/dL (3.5-5.0); Alkaline Phosphatase 92 U/L (39-117); Anion Gap 12 (12-20); Aspartate Amino Transferase 21 U/L (5-31); Bilirubin Total 0.7 mg/dL (0.0-1.0); Blood Urea Nitrogen 21 mg/dL (9-16); Calcium 10.7 mg/dL (8.4-10.2); Carbon Dioxide 28 mmol/L (22-29); Chloride 109 mmol/L (96-108); Cholesterol 187 mg/dL (<200); Estimated Glomerular Filt Rate 37; Glucose Random 98 mg/dL (60-115); HDL Cholesterol 46 mg/dL (>40); LDL Cholesterol Calculated 88 mg/dL (<100); Potassium 3.7 mmol/L (3.3-5.1); Sodium 145 mmol/L (135-145); Triglycerides 269 mg/dL (<150)
[2023-02-19 11:37] LABS: Thyroid Stimulating Hormone 1.73 uIU/mL (0.32-4.0)
== END 2023-02-19 09:46 | disposition home or self-care (01) ==
LOC: HO.LAB 09:45
PROVIDERS: PCP Internal Medicine; Visit Provider Internal Medicine
DX: Z13.89 Encounter for screening for other disorder (principal)
CPT/HCPCS: 36415; 80053; 80061; 84443; 85025

== ENCOUNTER 2023-02-21 18:09 | Emergency (ER) | payer OTHER, SELFPAY ==
--- NOTE | ~2023-02-21 | XR_ITS ---
EXAMINATION: XR CHEST 2 VIEWS CLINICAL INFORMATION: Chest pain. COMPARISON: Chest radiographs dated 06/12/2009. TECHNIQUE: Frontal and lateral views of the chest were obtained. FINDINGS: The heart, great vessels, pulmonary vasculature and mediastinum are normal. The lungs show no focal infiltrate, effusion or pneumothorax. There is no acute osseous abnormality. There is a mild thoracolumbar levoscoliosis. XR/XR chest 2V IMPRESSION: No active cardiopulmonary disease.
--- NOTE | ~2023-02-21 | XR_ITS ---
EXAMINATION: XR KNEE, LEFT CLINICAL INFORMATION: Left knee pain COMPARISON: None available. TECHNIQUE: Four views of the left knee. FINDINGS: There is moderate loss of lateral compartment joint space with periarticular spurring. The medial and patellofemoral compartment joint spaces maintain normal. There is minimal suprapatellar joint effusion. No loose bodies, acute fracture or dislocation seen. XR/XR knee LT 2V IMPRESSION: Moderate degenerative arthritic changes lateral compartment left knee. Suspect minimal suprapatellar joint effusion.
--- NOTE | 2023-02-21 18:58 | ED_ITS ---
HPI - General Adult General Chief complaint: General Medical Stated complaint: left side body pain, numbness Time Seen by Provider: 02/21/23 19:46 Source: patient Limitations: language barrier (daughter at bedside translates) History of Present Illness HPI narrative: 62 years old with past medical history of CKD, hypertension, hyperlipidemia, negative stress test in July 21, presents to the emergency room for left knee pain associated with radiation to the left eye and left gluteus. Patient in addition reports pain on the left side of her chest with radiation to the left axilla. Patient reports the pain is worsened when she moves or tries walking. She denies shortness of breath, cough, exertional chest pain, chills or fever. Patient denies rash or tick bite. No abdominal pain nausea or vomiting. Patient does not use analgesia at home. Pain is ongoing for the past or 3 days. No recent falls, no headache no unilateral weakness, no blurry vision or slurred speech denies fecal incontinence or urinary syptoms Related Data Home Medications Medication Instructions Recorded Confirmed amlodipine 5 mg tablet 5 mg PO DAILY 11/22/20 12/05/22 atorvastatin 80 mg tablet 80 mg PO BEDTIME 11/22/20 07/09/22 prazosin 2 mg capsule 2 mg PO BEDTIME 11/22/20 07/09/22 sertraline 100 mg tablet 100 mg PO BID 11/22/20 07/09/22 clonazepam 0.5 mg tablet 0.5 mg PO DAILY 10/16/21 07/09/22 quetiapine 100 mg tablet 100 mg PO BEDTIME 07/09/22 07/09/22 rosuvastatin 40 mg tablet 40 mg PO DAILY 07/09/22 07/09/22 Previous Rx's Medication Instructions Recorded hydrocodone 5 mg-acetaminophen 325 1 tab PO Q4-6H PRN pain #30 tabs 12/05/22 mg tablet furosemide 20 mg tablet (Lasix) 20 mg PO DAILY #30 tabs 02/12/23 Allergies Allergy/AdvReac Type Severity Reaction Status Date / Time No Known Allergies Allergy Verified 12/10/22 10:05 [No Known Allergies*] Review of Systems 2 Review of Systems: Yes all other systems are reviewed and are negative PMFSH Past Medical History Medical History Hypercholesteremia Depression Hypertension Surgical History Hx of arthroscopy Hx of tubal ligation Family History Family History Mother HTN (hypertension) Social History Alcohol intake: current Alcohol intake frequency: holidays/special occasions only Patient Tobacco Use Status: Current someday Tobacco user Tobacco use type: Cigar Years Smoked: 30 +/- only smokes cigars once in a blue Smoked in Last 30 Days: No Use of substances other than those prescribed or required for medical reasons: No Advance Directives: No Advance Directives Information Provided: No Patient : No Physical Exam ED Vital Signs: Vital Signs - 24 hr 02/21/23 18:59 02/21/23 19:45 Temperature 98.7 F 98.9 F Pulse Rate 80 67 Respiratory Rate 16 16 Blood Pressure 144/85 H 111/59 L Pulse Oximetry 96 96 Oxygen Delivery Method Room Air Room Air BMI result Body Mass Index 24.8 General: Alert, Not in Distress Skin: No rash, warm HEENT: Atraumatic, No Exudate or Pharyngeal Erythema Resp: Normal Breath sounds bilaterally Cardio: Regular rate and Rhythm, Normal S1, S2 ABD: Abd soft, non tender, no guarding or rebound. Normal Bowel sounds. : No cva tenderness Neuro: Alert, oriented x4, PERRL Strenght 5/5 on all extremities Sensation is preserved in both lower and upper extremities Index to nose: normal Cranial Nerves II-XII grossly intact No dysarthria, or aphasia No neglet. patellar reflex 2+ bilaterally Visual sigala are normal bilaterally Psych: Cooperative, NO SI Course Course Course Narrative: This is a rapid medical exam: Additional HPI, ROS, PE not included below will be deferred to primary provider. Patient is a 62-year-old Chinese-speaking hard of hearing female with history of renal failure, HTN, high cholesterol, depression presenting to the emergency department with complaint of left knee, leg and left arm pain for one week but today pain increased. Has not taken any OTC medications for her symptoms. Denies history of same. Denies fall or other injury. Pain is somewhat improved with warm compresses, but when she lays down pain increases. States she also has shortness of breath with the arm pain. Plan: EKG, CXR, labs Reevaluation(s) Reevaluation #1: I personally reviewed patient's EKG is unremarkable as well as CBC. BMP showed mild worsening MARY that on however my opinion this not require admission at this time and mild hypokalemia for which I will order potassium 20 mEq po Rest of the imaging is pending COVID flu RSV negative. . Time: 20:11 Reevaluation #2: Imaging showed some mild inflammation of the knee. Patient cannot take NSAIDs because of creamy he therefore I recommended her to use Tylenol 4 times a day for a week and then reassess with primary care physician. Patient understands, agrees with the plan. At this time wanting patient requires further observation or admission. Will DC home+ Time: 21:18 Medications Administered Discontinued Medications Generic Name Dose Route Start Last Admin Trade Name Freq PRN Reason Stop Dose Admin Acetaminophen 975 mg 02/21/23 20:01 02/21/23 20:47 Acetaminophen 325 Mg Tablet PO 02/21/23 20:02 975 mg ONCE ONE Administration Oxycodone HCl 5 mg 02/21/23 20:01 02/21/23 20:47 Oxycodone Hcl Immed Release 5 Mg Tablet PO 02/21/23 20:02 5 mg ONCE ONE Administration Potassium Chloride 20 meq 02/21/23 20:09 02/21/23 20:47 Potassium Chloride Er 20 Meq Tab.Er.Prt PO 02/21/23 20:10 20 meq ONCE ONE Administration Medical Decision Making Medical Decision Making [facility] Narrative: 62 years old presenting to the emergency room with left knee pain with radiation to the left thigh and buttocks, patient also reports pain on the left side of her body including chest and left axilla. Pain of the lower extremities not very specific possibly secondary to sciatica, patient does have minimal weakness on dorsiflexion of the foot, she does not have however any signs of cauda equina. Patient denies trauma however given age will get imaging of the knee, and chest. will order ekg I have low suspicion at this time that symptoms are secondary to infection. Will give patient analgesia and reassess. Admission/Observation Consideration of admission/observation: Escalation of care including admission/observation considered Lab Data [facility] Lab Attestation statement: I reviewed the patient's lab results. 02/21/23 19:24 02/21/23 19:24 Labs: Lab Results 02/21/23 Range/Units 19:24 WBC 9.0 (4.8-10.8) X10*3/uL RBC 4.41 (4.20-5.50) X10*6/uL Hgb 13.2 (12.0-16.0) g/dl Hct 37.7 (37.0-47.0) % MCV 85.5 (80.0-98.0) fL MCH 29.9 (27.0-33.0) pg MCHC 35.0 (31.0-35.0) g/dl RDW 13.4 (11.0-16.0) % Plt Count 219 (160-400) X10*3/uL MPV 10.4 (9.4-12.3) fL Immature Gran % (Auto) 0.2 (0.0-0.4) % Neut % (Auto) 56.9 (45-73) % Lymph % (Auto) 33.1 (20-40) % Guthrie % (Auto) 7.7 (2-11) % Eos % (Auto) 1.5 (0-4) % Baso % (Auto) 0.6 (0-2) % Lymph # (Auto) 3.0 (1.2-4.9) X10*3/uL Guthrie # (Auto) 0.7 (0.1-1.2) X10*3/uL Eos # (Auto) 0.1 (0.0-0.4) X10*3/uL Baso # (Auto) 0.1 (0.0-0.2) X10*3/uL Abs Immat Gran (auto) 0.02 (0.00-0.03) X10*3/uL Absolute Neuts (auto) 5.1 (2.0-8.3) x10*3/uL Absolute Nucleated RBC 0.000 (0.0-0.012) X10*3/uL Nucleated RBC % (auto) 0.0 (0.0-0.2) /100WBC Sodium 146 H (135-145) mmol/L Potassium 3.1 L (3.3-5.1) mmol/L Chloride 111 H (96-108) mmol/L Carbon Dioxide 23 (22-29) mmol/L Anion Gap 15 (12-20) BUN 34 H (9-16) mg/dL Creatinine 1.87 H (0.5-1.4) mg/dL Estim Creat Clear Calc 28.6 Estimated GFR 27 Random Glucose 110 (60-115) mg/dL Calcium 10.2 (8.4-10.2) mg/dL Total Bilirubin 0.4 (0.0-1.0) mg/dL AST 18 (5-31) U/L ALT 18 (0-31) U/L Alkaline Phosphatase 89 (39-117) U/L Troponin I High Sens 5.0 (<3.5-17.0) ng/L Total Protein 7.8 (6.5-8.0) g/dL Albumin 4.4 (3.5-5.0) g/dL COVID-19 (JAN) Negative (Negative) COVID-19 Clin Com See Note Influenza Type A (TRICIA) Negative (Negative) Influenza Type B (TRICIA) Negative (Negative) Influenza A & B Note See Note Independent Interpretation I performed an independent interpretation of an: EKG (normal sinus rhythm) and Plain X-Ray Discharge Plan Discharge Clinical Impression: Patellar bursitis Patient Disposition: Home, Self-Care Instructions: Knee Bursitis (ED) Additional Instructions: You were seen in the emergency room for knee pain. X-ray showed arthritis and inflammation of the knee. In medication with the most effective in this case are and states however due to your kidney disease dose are not recommended in your case. We recommend Tylenol 1000 mg every 6 hours for 7 days. Elevate the knee at rest. When at rest you can also ice the knee with ice for no longer than 20 minutes. Follow-up with your primary care doctor in a week. Prescriptions: No Action furosemide [Lasix] 20 mg tablet 20 mg PO DAILY Qty: 30 1RF hydrocodone-acetaminophen 5-325 mg tablet 1 tab PO Q4-6H PRN (Reason: pain) Qty: 30 0RF Rx Instructions: Partial Fill upon patient request. amlodipine 5 mg tablet 5 mg PO DAILY prazosin 2 mg capsule 2 mg PO BEDTIME sertraline 100 mg tablet 100 mg PO BID atorvastatin 80 mg tablet 80 mg PO BEDTIME clonazepam 0.5 mg tablet 0.5 mg PO DAILY rosuvastatin 40 mg tablet 40 mg PO DAILY quetiapine 100 mg tablet 100 mg PO BEDTIME Print Language: Chinese
[2023-02-21 18:59] VITALS: BP 144/85; PULSE 80; RESP 16; TEMP 37.1; O2SAT 96; BMI 24.8
--- NOTE | 2023-02-21 19:03 | ECG_ITS ---
Test Reason : LEFT SIDE PAIN Blood Pressure : / mmHG Vent. Rate : 070 BPM Atrial Rate : 070 BPM P-R Int : 184 ms QRS Dur : 100 ms QT Int : 400 ms P-R-T Axes : 058 050 077 degrees QTc Int : 432 ms Normal sinus rhythm Nonspecific T wave abnormality Abnormal ECG When compared with ECG of 06-JUL-2016 21:11, Heart rate has decreased T wave amplitude has decreased in Lateral leads Referred By: Keesha Servin Electronically Signed By:GERMÁN RESENDEZ MD
[2023-02-21 19:34] LABS: MANUAL DIFF FLAG NO
[2023-02-21 19:35] LABS: Basophils Absolute Auto 0.1 X10*3/uL (0.0-0.2); Basophils Percent Auto 0.6 % (0-2); Eosinophils Absolute Auto 0.1 X10*3/uL (0.0-0.4); Eosinophils Percent Auto 1.5 % (0-4); Hematocrit 37.7 % (37.0-47.0); Hemoglobin 13.2 g/dl (12.0-16.0); Imm Gran Abs Auto 0.02 X10*3/uL (0.00-0.03); Imm Gran Pct Auto 0.2 % (0.0-0.4); Lymphocytes Percent Auto 33.1 % (20-40); Mean Corpuscular Hemoglobin 29.9 pg (27.0-33.0); Mean Corpuscular Volume 85.5 fL (80.0-98.0); Mean Platelet Volume 10.4 fL (9.4-12.3); Monocytes Absolute Auto 0.7 X10*3/uL (0.1-1.2); Monocytes Percent Auto 7.7 % (2-11); Neutrophils Absolute Auto 5.1 x10*3/uL (2.0-8.3); Neutrophils Percent Auto 56.9 % (45-73); Platelet Count 219 X10*3/uL (160-400); Red Blood Count 4.41 X10*6/uL (4.20-5.50); Red Cell Distribution Width 13.4 % (11.0-16.0)
[2023-02-21 19:45] VITALS: BP 111/59; PULSE 67; RESP 16; TEMP 37.2; O2SAT 96
[2023-02-21 19:50] LABS: Alanine Aminotransferase 18 U/L (0-31); Albumin Level 4.4 g/dL (3.5-5.0); Alkaline Phosphatase 89 U/L (39-117); Anion Gap 15 (12-20); Aspartate Amino Transferase 18 U/L (5-31); Bilirubin Total 0.4 mg/dL (0.0-1.0); Blood Urea Nitrogen 34 mg/dL (9-16); COVID-19 Test Negative (Negative); Calcium 10.2 mg/dL (8.4-10.2); Carbon Dioxide 23 mmol/L (22-29); Chloride 111 mmol/L (96-108); Creatinine Clr Calc Pharmacy 28.6; Estimated Glomerular Filt Rate 27; Glucose Random 110 mg/dL (60-115); IDNOW Serial# BCCEAD1C; Potassium 3.1 mmol/L (3.3-5.1); Sodium 146 mmol/L (135-145); Total Protein 7.8 g/dL (6.5-8.0)
[2023-02-21 19:51] LABS: IDNOW Serial# 08D9AD1C; Influenza A Negative (Negative); Influenza B2 Negative (Negative)
[2023-02-21] MEDS: Acetaminophen 325 MG TABLET 975 MG PO (20:47)
[2023-02-21] MEDS: oxyCODONE HCl Immed Release 5 MG TABLET PO (20:47)
[2023-02-21] MEDS: Potassium Chloride ER 20 MEQ TAB.ER.PRT PO (20:47)
[2023-02-21 21:40] VITALS: BP 137/61; PULSE 68; RESP 16; O2SAT 96
== END 2023-02-21 21:49 | disposition home or self-care (01) ==
PROVIDERS: Registered Nurse Emergency; Emergency Provider Student in an Organized Health Care Education/Training Program; PCP Internal Medicine
DX: M70.42 Prepatellar bursitis, left knee (principal); M79.10 Myalgia, unspecified site; R07.89 Other chest pain; Z11.52 Encounter for screening for COVID-19; Z20.822 Contact with and (suspected) exposure to COVID-19; Z79.899 Other long term (current) drug therapy
CPT/HCPCS: 71046; 73560; 80053; 84484; 85025; 87502; 87635; 93005; 99283; 99284

== ENCOUNTER 2023-03-04 12:36 | Outpatient (REF) | payer OTHER, SELFPAY ==
[2023-03-04 14:16] LABS: Hematocrit 40.7 % (37.0-47.0); Hemoglobin 13.8 g/dl (12.0-16.0); Mean Corpuscular HGB Conc 33.9 g/dl (31.0-35.0); Mean Corpuscular Hemoglobin 29.4 pg (27.0-33.0); Mean Corpuscular Volume 86.6 fL (80.0-98.0); Mean Platelet Volume 10.2 fL (9.4-12.3); Platelet Count 222 X10*3/uL (160-400); Red Cell Distribution Width 13.2 % (11.0-16.0); White Blood Count 8.3 X10*3/uL (4.8-10.8)
[2023-03-04 14:55] LABS: Parathyroid Hormone Intact 120.5 pg/mL (8.7-77.1)
[2023-03-04 15:28] LABS: Creatinine Urine 56.48 mg/dL; Total Protein Urine Random 126 mg/dL (<12)
[2023-03-10 15:23] LABS: Neutrophil Cyto Ab Screen NEGATIVE (NEGATIVE)
[2023-03-10 16:49] LABS: Anti Glomerular Basement Memb <1.0 AI; Myeloperoxidase Antibody <1.0 AI
[2023-03-11 14:19] LABS: IgA 292 mg/dL (47-310); IgG 1182 mg/dL (600-1640); IgM 201 mg/dL (50-300)
== END 2023-03-04 12:37 | disposition home or self-care (01) ==
LOC: HO.LAB 12:36
PROVIDERS: PCP Internal Medicine; Visit Provider Internal Medicine Hypertension Specialist
DX: N17.9 Acute kidney failure, unspecified (principal); I12.9 Hypertensive chronic kidney disease with stage 1 through stage 4 chronic kidney disease, or unspecified chronic kidney disease; N18.30 Chronic kidney disease, stage 3 unspecified; E83.52 Hypercalcemia; E87.0 Hyperosmolality and hypernatremia; E87.6 Hypokalemia
CPT/HCPCS: 82570; 82784; 83520; 83970; 84156; 85027; 86021; 86036; 86334; 86335; 99212

== ENCOUNTER 2023-03-04 12:36 | Outpatient (AMB) | payer OTHER, SELFPAY ==
[2023-03-04 13:01] VITALS: BP 128/76; PULSE 85; O2SAT 98; BMI 25.0
--- NOTE | 2023-03-04 13:01 | HO.NEPHOV ---
HPI HPI Comments History of Present Illness Details Middle-aged woman with history of hypertension and stage III chronic disease. Her baseline serum creatinine from 1.2 mg/dL. She had a kidney biopsy back in 2020 which showed acute tubular injury with mild interstitial nephritis. 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 She was in [place] last month. At that time she was found to have hypercalcemia with a calcium 11.0. She also sustained acute kidney injury with the creatinine bumping up to 1.44. Labs as of labs when 10/17/2022 revealed a creatinine 1.8 and she had mild hyper natremia with a sodium of 146 and mild hypokalemia. She is on Lasix 20 mg q.d.. She denies taking any NSAIDs or Garg inhibitors. She denies any urinary symptoms. Finished Hardware Erector service was used [facility] Medical History Hypercholesteremia Depression Hypertension Surgical History Hx of arthroscopy Hx of tubal ligation Family History Mother HTN (hypertension) Social History Alcohol intake: current Alcohol intake frequency: holidays/special occasions only Patient Tobacco Use Status: Current someday Tobacco user Tobacco use type: Cigar Years Smoked: 30 +/- only smokes cigars once in a blue Vital Signs 03/04/23 13:01 Height 5 ft 3 in Weight 141 lb 4 oz BMI 25.0 BP 128/76 Blood Pressure Location Lt brachial Position Sitting Pulse 85 Pulse Source Pulse Oximeter Pulse Oximetry (%) 98 Oxygen Delivery Method Room Air Physical Exam Vital Signs: Last Vital Signs Pulse 85 03/04/23 13:01 BP 128/76 03/04/23 13:01 Pulse Ox 98 03/04/23 13:01 Oxygen Delivery Method Room Air 03/04/23 13:01 BMI result Body Mass Index 25.0 Const General: comfortable; No acute distress Orientation/consciousness: patient oriented x3 Eyes General: appearance normal, both eyes and all related structures Visual Sigala: normal visual sigala by confrontation Neck Neck: Yes supple and Yes no JVD Resp Effort & Inspection: normal respiratory effort and respiratory effort not decreased Auscultation: rhonchi Cardio Palpation: no palpable S3 and no palpable S4 Heart sounds: no rubs GI Inspection: Yes normal to inspection Palpation (GI): Soft to palpation Percussion: Yes normal to percussion Auscultation: normal bowel sounds General: Yes no CVA tenderness Back/Spine/Pelvis Back: no CVA tenderness Skin General skin exam: no petechiae and no purpura Neuro General: patient oriented x3 and no focal motor deficits Extrem General: No clubbing and No edema Assessment & Plan Assessment & Plan (1) MARY (acute kidney injury): Code(s): N17.9 - Acute kidney failure, unspecified (2) CKD (chronic kidney disease) stage 3, GFR 30-59 ml/min: Code(s): N18.30 - Chronic kidney disease, stage 3 unspecified (3) Hypercalcemia: Code(s): E83.52 - Hypercalcemia (4) Hypernatremia: Code(s): E87.0 - Hyperosmolality and hypernatremia (5) Hypokalemia: Code(s): E87.6 - Hypokalemia Plan Middle-aged man with hypertension currently has acute kidney injury superimposed on chronic disease along with hypercalcemia. CT scan in the past revealed nonobstructive to renal calculi. Deferred diagnosis for MARY remains extensive. Hypoperfusion from volume depletion secondary to use of Lasix should be considered especially since she has hypernatremia and hypokalemia. Therefore I will discontinue Lasix. Increase her to increase fluid intake. Given the history of renal stones obstructive uropathy should be considered. She has also developed hypercalcemia. I will check the PTH and serum electrophoresis. Of note she did not have significant anemia make myeloma unlikely. I have reordered serologies again. Orders: Orders Total Protein Urine Random Today N17.9 - Acute kidney failure, unspecified, N18.30 - Chronic kidney disease, stage 3 unspecified Creatinine Urine Today N17.9 - Acute kidney failure, unspecified, N18.30 - Chronic kidney disease, stage 3 unspecified Immunofixation Pnl, Serum Today N17.9 - Acute kidney failure, unspecified, N18.30 - Chronic kidney disease, stage 3 unspecified Complete Blood Count no Diff Today N17.9 - Acute kidney failure, unspecified, N18.30 - Chronic kidney disease, stage 3 unspecified Parathyroid Hormone Intact Today N17.9 - Acute kidney failure, unspecified, N18.30 - Chronic kidney disease, stage 3 unspecified Myeloperoxidase Antibody Today N17.9 - Acute kidney failure, unspecified, N18.30 - Chronic kidney disease, stage 3 unspecified Neutrophil Cytoplasma Ab Today N17.9 - Acute kidney failure, unspecified, N18.30 - Chronic kidney disease, stage 3 unspecified Anti Glomerular Basement Memb Today N17.9 - Acute kidney failure, unspecified, N18.30 - Chronic kidney disease, stage 3 unspecified Immunofixation, Random Urine Today N17.9 - Acute kidney failure, unspecified, N18.30 - Chronic kidney disease, stage 3 unspecified Medications: Discontinued furosemide (Lasix) Discontinued Reason: Doctor's Order 20 mg PO DAILY 30 tabs 1RF Coding Level of Care Code Est Pt Level 4 (97987) Diagnoses MARY (acute kidney injury) N17.9 CKD (chronic kidney disease) stage 3, GFR 30-59 ml/min N18.30 Hypercalcemia E83.52 Hypernatremia E87.0 Hypokalemia E87.6 Results Reviewed Results Reviewed: Kidney biopsy in 2020 showed acute tubular injury with mild interstitial nephritis. Chronic angiopathy with severe arteriolar hyaline sclerosis. Non sclerosed glomeruli with no significant changes. 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 Arterial sclerosis was mild to moderate. CT Scan: KIDNEYS AND URETERS: Multiple nonobstructive bilateral renal calculi. No hydronephrosis. No ureteral stone. Nephrology Results: Hgb 13.2 g/dl (12.0-16.0) 02/21/23 WBC 9.0 X10*3/uL (4.8-10.8) 02/21/23 Plt Count 219 X10*3/uL (160-400) 02/21/23 Sodium 146 mmol/L (135-145) H 02/21/23 Potassium 3.1 mmol/L (3.3-5.1) L 02/21/23 Chloride 111 mmol/L (96-108) H 02/21/23 Carbon Dioxide 23 mmol/L (22-29) 02/21/23 BUN 34 mg/dL (9-16) H 02/21/23 Creatinine 1.87 mg/dL (0.5-1.4) H 02/21/23 Calcium 10.2 mg/dL (8.4-10.2) 02/21/23 PTH Intact Pending 03/04/23
== END 2023-03-04 13:37 | disposition home or self-care (01) ==
PROVIDERS: PCP Internal Medicine; Visit Provider Internal Medicine Hypertension Specialist
DX: N17.9 Acute kidney failure, unspecified (principal); N18.30 Chronic kidney disease, stage 3 unspecified; E83.52 Hypercalcemia; E87.0 Hyperosmolality and hypernatremia; E87.6 Hypokalemia
CPT/HCPCS: 99214

== ENCOUNTER 2023-03-10 08:56 | Outpatient (AMB) | payer OTHER, SELFPAY ==
--- NOTE | 2023-03-10 08:58 | A.OFFVIS_ITS ---
Intake Vital Signs 03/10/23 09:00 Height 5 ft 3 in Weight 141 lb BMI 25.0 Intake Visit Reasons: New Patient - Left Knee Pain Intake Note: Sisi is a 62 year old female who presents today as a new patient with complaints of left knee pain. Hx of Right knee [place] [address] Chong. Patient reports that she has had pain in this knee for about 2 months. No injury. He has history of left knee surgery in [place] and [place]. Allergies Tramadol Adverse Reaction (Uncoded 03/10/23 09:02) heart racing HPI New Patient - Left Knee Pain HPI Details Sisi is a 62 year old woman who presents with complaints of left knee pain. [place] patient. She complains of pain with daily activity, worse with walking or using stairs. She says her pain has been present for ~2 months now. She denies any prior treatment options. She has CKD and is not able to take NSAIDs. She takes Percocets for her pain. She has a hx of a right knee done by Dr. Chong in 2020. [facility] Medical History (Updated 03/10/23 @ 09:30 by Morgan Chavarria MD) Hypercholesteremia Depression Hypertension Surgical History (Updated 03/07/23 @ 14:19 by Melissa Vyas CMA) H/O arthroscopy of right knee (11/18/19) Hx of tubal ligation Family History Mother HTN (hypertension) Social History Alcohol intake: current Alcohol intake frequency: holidays/special occasions only Patient Tobacco Use Status: Current someday Tobacco user Tobacco use type: Cigar Years Smoked: 30 +/- only smokes cigars once in a blue Review of Systems Const All systems reviewed & are unremarkable except as noted in HPI and below Physical Exam Vital Signs: BMI result Body Mass Index 25.0 Const General: no acute distress, alert and awake Orientation/consciousness: patient oriented x3 HEENT Head: Yes normocephalic and Yes atraumatic Eyes EOM: EOMs intact bilaterally Resp Effort & Inspection: normal respiratory effort and able to speak in complete sentences Cardio Jugular venous distension: no JVD Skin General skin exam: turgor normal Rashes: no rashes Neuro General: patient oriented x3 Extrem Other: lateral left knee ttp and valgus malalignment bilaterally with 1+ valgus instability. Psych Appearance: grossly normal Affect: normal affect Attitude: cooperative Results Reviewed Results Reviewed: I personally reviewed relevant radiographs Moderate degenerative arthritic changes lateral compartment left knee. Suspect minimal suprapatellar joint effusion. Assessment & Plan Assessment & Plan (1) Physiologic genu valgum of left knee: Code(s): M21.062 - Valgus deformity, not elsewhere classified, left knee Plan: Left knee valgus instability. Unloading brace (2) Arthritis of left knee: Code(s): M17.12 - Unilateral primary osteoarthritis, left knee Plan: Left knee OA. Cannot tolerate NSAIDs and pain for only 2 months. Lateral statistician mathematical and f/u as needed. Plan Scribed for Morgan Chavarria MD by Anup Crews, medical center manager, on 03/10/23 at 9:10 AM, EST. Coding Level of Care Code New Pt Level 3 (06419) Diagnoses Physiologic genu valgum of left knee M21.062 Arthritis of left knee M17.12
[2023-03-10 09:00] VITALS: BMI 25.0
== END 2023-03-10 10:31 | disposition home or self-care (01) ==
PROVIDERS: PCP Internal Medicine; Visit Provider Orthopaedic Surgery
DX: M21.062 Valgus deformity, not elsewhere classified, left knee (principal); M17.12 Unilateral primary osteoarthritis, left knee
CPT/HCPCS: 99203

== ENCOUNTER → 2023-03-10 08:56 | Outpatient (BNVA) | payer OTHER, SELFPAY | PROVIDERS: PCP Internal Medicine; Visit Provider Orthopaedic Surgery | DX: M21.062 Valgus deformity, not elsewhere classified, left knee (principal); M17.12 Unilateral primary osteoarthritis, left knee | CPT/HCPCS: 99202 ==

== ENCOUNTER 2023-03-18 13:35 | Outpatient (REF) | payer OTHER, SELFPAY ==
[2023-03-18 15:16] LABS: Anion Gap 13 (12-20); Blood Urea Nitrogen 23 mg/dL (9-16); Calcium 10.5 mg/dL (8.4-10.2); Carbon Dioxide 26 mmol/L (22-29); Chloride 111 mmol/L (96-108); Estimated Glomerular Filt Rate 44; Sodium 146 mmol/L (135-145)
== END 2023-03-18 13:36 | disposition home or self-care (01) ==
LOC: HO.LAB 13:35
PROVIDERS: PCP Internal Medicine; Visit Provider Internal Medicine Hypertension Specialist
DX: E87.0 Hyperosmolality and hypernatremia (principal); N17.9 Acute kidney failure, unspecified; N18.30 Chronic kidney disease, stage 3 unspecified
CPT/HCPCS: 36415; 80051; 82310; 82565; 84520; 99212

== ENCOUNTER 2023-03-18 13:35 | Outpatient (AMB) | payer OTHER, SELFPAY ==
[2023-03-18 13:36] VITALS: BP 130/70; PULSE 74; O2SAT 98; BMI 25.7
--- NOTE | 2023-03-18 13:36 | HO.NEPHOV ---
HPI HPI Comments History of Present Illness Details Middle-aged woman with history of hypertension and stage III chronic disease. Her baseline serum creatinine from 1.2 mg/dL. She had a kidney biopsy back in 2020 which showed acute tubular injury with mild interstitial nephritis. 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 She was in [place] last month. At that time she was found to have hypercalcemia with a calcium 11.0. She also sustained acute kidney injury with the creatinine bumping up to 1.44. Labs as of labs when 10/17/2022 revealed a creatinine 1.8 and she had mild hyper natremia with a sodium of 146 and mild hypokalemia. She is on Lasix 20 mg q.d.. She denies taking any NSAIDs or Garg inhibitors. She denies any urinary symptoms. Biological Aide service was used 03/18/23 Feels better Off Lasix [facility] Medical History (Updated 03/10/23 @ 09:30 by Morgan Chavarria MD) Hypercholesteremia Depression Hypertension Surgical History (Updated 03/07/23 @ 14:19 by Melissa Vyas CMA) H/O arthroscopy of right knee (11/18/19) Hx of tubal ligation Family History Mother HTN (hypertension) Social History Alcohol intake: current Alcohol intake frequency: holidays/special occasions only Patient Tobacco Use Status: Current someday Tobacco user Tobacco use type: Cigar Years Smoked: 30 +/- only smokes cigars once in a blue Vital Signs 03/18/23 13:36 Height 5 ft 3 in Weight 145 lb BMI 25.7 BP 130/70 Blood Pressure Location Lt brachial Position Sitting Pulse 74 Pulse Source Pulse Oximeter Pulse Oximetry (%) 98 Oxygen Delivery Method Room Air Physical Exam Vital Signs: Last Vital Signs Pulse 74 03/18/23 13:36 BP 130/70 03/18/23 13:36 Pulse Ox 98 03/18/23 13:36 Oxygen Delivery Method Room Air 03/18/23 13:36 BMI result Body Mass Index 25.7 Const General: comfortable Nutritional Appearance: well nourished Orientation/consciousness: patient oriented x3 HEENT Head: No normal to inspection Mouth: moist mucous membranes Neck Neck: Yes supple and Yes no JVD Resp Auscultation: clear to auscultation bilaterally, no rales and rub present Cardio Jugular venous distension: no JVD Palpation: no palpable S3 and no palpable S4 Heart sounds: no rubs GI Palpation (GI): Soft to palpation and nontender Percussion: No Fluid wave present General: Yes no CVA tenderness Back/Spine/Pelvis Back: no CVA tenderness Skin General skin exam: no rashes or lesions noted Neuro General: patient oriented x3 Extrem General: Yes no pedal edema and No clubbing Assessment & Plan Assessment & Plan (1) MARY (acute kidney injury): Code(s): N17.9 - Acute kidney failure, unspecified (2) CKD (chronic kidney disease) stage 3, GFR 30-59 ml/min: Code(s): N18.30 - Chronic kidney disease, stage 3 unspecified (3) Hypercalcemia: Code(s): E83.52 - Hypercalcemia (4) Hypernatremia: Code(s): E87.0 - Hyperosmolality and hypernatremia (5) Hypokalemia: Code(s): E87.6 - Hypokalemia Plan Middle-aged woman with hypertension- acute kidney injury superimposed on chronic disease along with hypercalcemia. CT scan in the past revealed nonobstructive to renal calculi. DDx diagnosis for MARY remains extensive. Hypoperfusion from volume depletion secondary to use of Lasix- especially since she has hypernatremia and hypokalemia. Therefore I will discontinued Lasix. Increase her to increase fluid intake. repeat lab work ordered today Given the history of renal stones obstructive uropathy should be considered if creatinine does not improve. She has also developed hypercalcemia. PTH is elevated and serum electrophoresis is normal. Other serologies normal Orders: Orders Electrolytes Today E87.0 - Hyperosmolality and hypernatremia, N18.30 - Chronic kidney disease, stage 3 unspecified Blood Urea Nitrogen Today E87.0 - Hyperosmolality and hypernatremia, N18.30 - Chronic kidney disease, stage 3 unspecified Creatinine Today E87.0 - Hyperosmolality and hypernatremia, N18.30 - Chronic kidney disease, stage 3 unspecified Calcium Today E87.0 - Hyperosmolality and hypernatremia, N18.30 - Chronic kidney disease, stage 3 unspecified Coding Level of Care Code Est Pt Level 3 (88127) Diagnoses MARY (acute kidney injury) N17.9 CKD (chronic kidney disease) stage 3, GFR 30-59 ml/min N18.30 Hypercalcemia E83.52 Hypernatremia E87.0 Hypokalemia E87.6 Results Reviewed Nephrology Results: Hgb 13.8 g/dl (12.0-16.0) 03/04/23 WBC 8.3 X10*3/uL (4.8-10.8) 03/04/23 Plt Count 222 X10*3/uL (160-400) 03/04/23 Sodium 146 mmol/L (135-145) H 02/21/23 Potassium 3.1 mmol/L (3.3-5.1) L 02/21/23 Chloride 111 mmol/L (96-108) H 02/21/23 Carbon Dioxide 23 mmol/L (22-29) 02/21/23 BUN 34 mg/dL (9-16) H 02/21/23 Creatinine 1.87 mg/dL (0.5-1.4) H 02/21/23 Calcium 10.2 mg/dL (8.4-10.2) 02/21/23 PTH Intact 120.5 pg/mL (8.7-77.1) H 03/04/23 Urine Creatinine 56.48 mg/dL 03/04/23
== END 2023-03-18 13:50 | disposition home or self-care (01) ==
PROVIDERS: PCP Internal Medicine; Visit Provider Internal Medicine Hypertension Specialist
DX: N17.9 Acute kidney failure, unspecified (principal); N18.30 Chronic kidney disease, stage 3 unspecified; E83.52 Hypercalcemia; E87.0 Hyperosmolality and hypernatremia; E87.6 Hypokalemia
CPT/HCPCS: 99213

== ENCOUNTER 2023-05-01 10:43 | Outpatient (AMB) | payer OTHER, SELFPAY ==
--- NOTE | 2023-05-01 10:45 | MHC.OFFVIS ---
Intake Vital Signs 05/01/23 10:47 Height 5 ft 3 in Weight 148 lb 2 oz BMI 26.2 BP 138/78 Blood Pressure Location Lt brachial Position Sitting Pulse 88 Pulse Source Pulse Oximeter Pulse Oximetry (%) 98 Oxygen Delivery Method Room Air Intake Visit Reasons: 4-5 weeks fu/ LVM Allergies Tramadol Adverse Reaction (Uncoded 03/10/23 09:02) heart racing HPI HPI Comments History of Present Illness Details Middle-aged woman with history of hypertension and stage III chronic disease. Her baseline serum creatinine from 1.2 mg/dL. She had a kidney biopsy back in 2020 which showed acute tubular injury with mild interstitial nephritis. 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 She was in [place] last month. At that time she was found to have hypercalcemia with a calcium 11.0. She also sustained acute kidney injury with the creatinine bumping up to 1.44. Labs as of labs when 10/17/2022 revealed a creatinine 1.8 and she had mild hyper natremia with a sodium of 146 and mild hypokalemia. She is on Lasix 20 mg q.d.. She denies taking any NSAIDs or Garg inhibitors. She denies any urinary symptoms. Movie Producer service was used 03/18/23 Feels better ;Off Lasix 05/11/23 REcently went to [place]; Had leg edema and visited ER. NO dyspnea NO further edema PFSH Medical History Hypercholesteremia Depression Hypertension Surgical History H/O arthroscopy of right knee (11/18/19) Hx of tubal ligation Family History Mother HTN (hypertension) Social History Alcohol intake: current Alcohol intake frequency: holidays/special occasions only Patient Tobacco Use Status: Current someday Tobacco user Tobacco use type: Cigar Years Smoked: 30 +/- only smokes cigars once in a blue Physical Exam Vital Signs: Last Vital Signs Pulse 88 05/01/23 10:47 BP 138/78 05/01/23 10:47 Pulse Ox 98 05/01/23 10:47 Oxygen Delivery Method Room Air 05/01/23 10:47 BMI result Body Mass Index 26.2 Results Reviewed Results Reviewed: Cr 1.2 [place] 10.4 PTH elevated Assessment & Plan Assessment & Plan (1) CKD (chronic kidney disease) stage 3, GFR 30-59 ml/min: Code(s): N18.30 - Chronic kidney disease, stage 3 unspecified (2) MARY (acute kidney injury): Code(s): N17.9 - Acute kidney failure, unspecified (3) Hypercalcemia: Code(s): E83.52 - Hypercalcemia (4) Hypernatremia: Code(s): E87.0 - Hyperosmolality and hypernatremia (5) Hypokalemia: Code(s): E87.6 - Hypokalemia Plan Middle-aged woman with hypertension- acute kidney injury superimposed on chronic disease along with hypercalcemia. CT scan in the past revealed nonobstructive to renal calculi. s/p MARY Hypoperfusion from volume depletion secondary to use of Lasix- especially since she has hypernatremia and hypokalemia. Creatinien improved after stopping LASIX/Lisinopril Increase her to increase fluid intake. history of renal stones ; No obstructive uropathy She has also developed hypercalcemia. PTH is elevated and serum electrophoresis is normal. Other serologies normal Add Cinacalcet 30 mg Q D and reassess Orders: Orders Calcium 1 Month N18.30 - Chronic kidney disease, stage 3 unspecified Electrolytes 1 Month N18.30 - Chronic kidney disease, stage 3 unspecified Blood Urea Nitrogen 1 Month N18.30 - Chronic kidney disease, stage 3 unspecified Creatinine 1 Month N18.30 - Chronic kidney disease, stage 3 unspecified Parathyroid Hormone Intact 1 Month N18.30 - Chronic kidney disease, stage 3 unspecified Referrals Applied Computer Science Professor Nutrition Referral N18.30 - Chronic kidney disease, stage 3 unspecified Medications: New cinacalcet 30 mg PO DAILY 30 tabs 3RF Coding Level of Care Code Tele New Pt Level 4 (67359) Diagnoses CKD (chronic kidney disease) stage 3, GFR 30-59 ml/min N18.30 MARY (acute kidney injury) N17.9 Hypercalcemia E83.52 Hypernatremia E87.0 Hypokalemia E87.6
[2023-05-01 10:47] VITALS: BP 138/78; PULSE 88; O2SAT 98; BMI 26.2
== END 2023-05-01 11:11 | disposition home or self-care (01) ==
PROVIDERS: PCP Internal Medicine; Visit Provider Internal Medicine Hypertension Specialist
DX: N18.30 Chronic kidney disease, stage 3 unspecified (principal); N17.9 Acute kidney failure, unspecified; E83.52 Hypercalcemia; E87.0 Hyperosmolality and hypernatremia; E87.6 Hypokalemia
CPT/HCPCS: 99214

== ENCOUNTER → 2023-05-01 10:43 | Outpatient (BNVA) | payer OTHER, SELFPAY | PROVIDERS: PCP Internal Medicine; Visit Provider Internal Medicine Hypertension Specialist | DX: N17.9 Acute kidney failure, unspecified (principal); I12.9 Hypertensive chronic kidney disease with stage 1 through stage 4 chronic kidney disease, or unspecified chronic kidney disease; N18.30 Chronic kidney disease, stage 3 unspecified; E83.52 Hypercalcemia; E87.0 Hyperosmolality and hypernatremia; E87.6 Hypokalemia | CPT/HCPCS: 99212 ==

== ENCOUNTER 2023-05-29 15:05 | Outpatient (REF) | payer OTHER, SELFPAY ==
[2023-05-29 15:56] LABS: Anion Gap 12 (12-20); Blood Urea Nitrogen 24 mg/dL (9-16); Calcium 8.9 mg/dL (8.4-10.2); Carbon Dioxide 25 mmol/L (22-29); Chloride 108 mmol/L (96-108); Estimated Glomerular Filt Rate 33; Potassium 3.8 mmol/L (3.3-5.1); Sodium 141 mmol/L (135-145)
[2023-05-29 16:04] LABS: Parathyroid Hormone Intact 142.7 pg/mL (8.7-77.1)
== END 2023-05-29 15:06 | disposition home or self-care (01) ==
LOC: HO.LAB 15:05
PROVIDERS: PCP Internal Medicine; Visit Provider Internal Medicine Hypertension Specialist
DX: N18.30 Chronic kidney disease, stage 3 unspecified (principal)
CPT/HCPCS: 36415; 80051; 82310; 82565; 83970; 84520

== ENCOUNTER 2023-06-03 11:26 | Outpatient (AMB) | payer OTHER, SELFPAY ==
[2023-06-03 11:28] VITALS: BP 148/76; PULSE 70; O2SAT 97; BMI 26.0
--- NOTE | 2023-06-03 11:28 | HO.NEPHOV ---
HPI HPI Comments History of Present Illness Details Middle-aged woman with history of hypertension and stage III chronic disease. Her baseline serum creatinine from 1.2 mg/dL. She had a kidney biopsy back in 2020 which showed acute tubular injury with mild interstitial nephritis. 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 She was in [place] last month. At that time she was found to have hypercalcemia with a calcium 11.0. She also sustained acute kidney injury with the creatinine bumping up to 1.44. Labs as of labs when 10/17/2022 revealed a creatinine 1.8 and she had mild hyper natremia with a sodium of 146 and mild hypokalemia. She is on Lasix 20 mg q.d.. She denies taking any NSAIDs or Garg inhibitors. She denies any urinary symptoms. Reading Intervention Teacher service was used 03/18/23;Feels better ;Off Lasix 05/11/23; REcently went to [place]; Had leg edema and visited ER. No dyspnea; No further edema 06/03/23: No new issues besides feeling tired No edema PFSH Medical History Hypercholesteremia Depression Hypertension Surgical History H/O arthroscopy of right knee (11/18/19) Hx of tubal ligation Family History Mother HTN (hypertension) Social History Alcohol intake: current Alcohol intake frequency: holidays/special occasions only Patient Tobacco Use Status: Current someday Tobacco user Tobacco use type: Cigar Years Smoked: 30 +/- only smokes cigars once in a blue Vital Signs 06/03/23 11:28 Height 5 ft 3 in Weight 147 lb BMI 26.0 BP 148/76 H Blood Pressure Location Lt brachial Position Sitting Pulse 70 Pulse Source Pulse Oximeter Pulse Oximetry (%) 97 Oxygen Delivery Method Room Air Physical Exam Vital Signs: Last Vital Signs Pulse 70 06/03/23 11:28 BP 148/76 H 06/03/23 11:28 Pulse Ox 97 06/03/23 11:28 Oxygen Delivery Method Room Air 06/03/23 11:28 BMI result Body Mass Index 26.0 Const General: comfortable Nutritional Appearance: well nourished Orientation/consciousness: patient oriented x3 HEENT Head: No normal to inspection Mouth: moist mucous membranes Neck Neck: Yes supple and Yes no JVD Resp Auscultation: clear to auscultation bilaterally, no rales and rub present Cardio Jugular venous distension: no JVD Palpation: no palpable S3 and no palpable S4 Heart sounds: no rubs GI Palpation (GI): Soft to palpation and nontender Percussion: No Fluid wave present General: Yes no CVA tenderness Back/Spine/Pelvis Back: no CVA tenderness Skin General skin exam: no rashes or lesions noted Neuro General: patient oriented x3 Extrem General: Yes no pedal edema and No clubbing Assessment & Plan Assessment & Plan (1) CKD (chronic kidney disease) stage 3, GFR 30-59 ml/min: Code(s): N18.30 - Chronic kidney disease, stage 3 unspecified (2) MARY (acute kidney injury): Code(s): N17.9 - Acute kidney failure, unspecified (3) Hypercalcemia: Code(s): E83.52 - Hypercalcemia (4) Hypernatremia: Code(s): E87.0 - Hyperosmolality and hypernatremia (5) Hypokalemia: Code(s): E87.6 - Hypokalemia Plan Middle-aged woman with hypertension- acute kidney injury superimposed on chronic disease along with hypercalcemia. CT scan in the past revealed nonobstructive to renal calculi. s/p MARY Hypoperfusion from volume depletion secondary to use of Lasix- especially since she has hypernatremia and hypokalemia. Creatinien improved after stopping LASIX/Lisinopril Increase her to increase fluid intake. history of renal stones ; No obstructive uropathy She has also developed hypercalcemia. PTH is elevated and serum electrophoresis is normal. Other serologies normal Keep Cinacalcet 30 mg Q D Orders: Orders Parathyroid Hormone Intact 4 Months E83.52 - Hypercalcemia, N18.30 - Chronic kidney disease, stage 3 unspecified Complete Blood Count no Diff 4 Months E83.52 - Hypercalcemia, N18.30 - Chronic kidney disease, stage 3 unspecified Comprehensive Met. Panel 4 Months E83.52 - Hypercalcemia, N18.30 - Chronic kidney disease, stage 3 unspecified, N18.9 - Chronic kidney disease, unspecified Phosphorus 4 Months E83.52 - Hypercalcemia, N18.30 - Chronic kidney disease, stage 3 unspecified Coding Level of Care Code Est Pt Level 4 (26058) Diagnoses CKD (chronic kidney disease) stage 3, GFR 30-59 ml/min N18.30 MARY (acute kidney injury) N17.9 Hypercalcemia E83.52 Hypernatremia E87.0 Hypokalemia E87.6 Results Reviewed Nephrology Results: Hgb 13.8 g/dl (12.0-16.0) 03/04/23 WBC 8.3 X10*3/uL (4.8-10.8) 03/04/23 Plt Count 222 X10*3/uL (160-400) 03/04/23 Sodium 141 mmol/L (135-145) 05/29/23 Potassium 3.8 mmol/L (3.3-5.1) 05/29/23 Chloride 108 mmol/L (96-108) 05/29/23 Carbon Dioxide 25 mmol/L (22-29) 05/29/23 BUN 24 mg/dL (9-16) H 05/29/23 Creatinine 1.59 mg/dL (0.5-1.4) H 05/29/23 Calcium 8.9 mg/dL (8.4-10.2) 05/29/23 PTH Intact 142.7 pg/mL (8.7-77.1) H 05/29/23 Urine Creatinine 56.48 mg/dL 03/04/23
== END 2023-06-03 11:49 | disposition home or self-care (01) ==
PROVIDERS: PCP Internal Medicine; Visit Provider Internal Medicine Hypertension Specialist
DX: N18.30 Chronic kidney disease, stage 3 unspecified (principal); N17.9 Acute kidney failure, unspecified; E83.52 Hypercalcemia; E87.0 Hyperosmolality and hypernatremia; E87.6 Hypokalemia
CPT/HCPCS: 99214

== ENCOUNTER → 2023-06-03 11:26 | Outpatient (BNVA) | payer OTHER, SELFPAY | PROVIDERS: PCP Internal Medicine; Visit Provider Internal Medicine Hypertension Specialist | DX: N18.30 Chronic kidney disease, stage 3 unspecified (principal); N17.9 Acute kidney failure, unspecified; E83.52 Hypercalcemia; E87.0 Hyperosmolality and hypernatremia; E87.6 Hypokalemia | CPT/HCPCS: 99212 ==

== ENCOUNTER 2023-07-15 08:20 | Outpatient (REF) | payer OTHER, SELFPAY ==
[2023-07-15 10:11] LABS: Alanine Aminotransferase 15 U/L (0-31); Albumin Level 4.1 g/dL (3.5-5.0); Alkaline Phosphatase 97 U/L (39-117); Anion Gap 12 (12-20); Aspartate Amino Transferase 16 U/L (5-31); Bilirubin Total 0.4 mg/dL (0.0-1.0); Blood Urea Nitrogen 30 mg/dL (9-16); Calcium 9.4 mg/dL (8.4-10.2); Carbon Dioxide 26 mmol/L (22-29); Chloride 110 mmol/L (96-108); Cholesterol 257 mg/dL (<200); Estimated Glomerular Filt Rate 43; Glucose Random 100 mg/dL (60-115); HDL Cholesterol 41 mg/dL (>40); LDL Cholesterol Calculated 161 mg/dL (<100); Sodium 144 mmol/L (135-145); Total Protein 7.4 g/dL (6.5-8.0); Triglycerides 278 mg/dL (<150)
== END 2023-07-15 08:21 | disposition home or self-care (01) ==
LOC: HO.LAB 08:20
PROVIDERS: Visit Provider Internal Medicine
DX: Z00.00 Encounter for general adult medical examination without abnormal findings (principal); E78.00 Pure hypercholesterolemia, unspecified; E83.52 Hypercalcemia; F17.210 Nicotine dependence, cigarettes, uncomplicated; N18.9 Chronic kidney disease, unspecified
CPT/HCPCS: 36415; 80053; 80061

== ENCOUNTER 2023-09-30 08:27 | Outpatient (REF) | payer OTHER, SELFPAY ==
--- NOTE | ~2023-09-30 | MM_ITS ---
EXAMINATION: BONE DENSITOMETRY CLINICAL INDICATION: Osteoporosis. COMPARISON: This is the patient's baseline examination. TECHNIQUE: Using a [employer] DXA System (software version: 13.1) manufactured by [employer], dual-energy x-ray absorptiometry was performed of the lumbar spine and left hip. The images are of good technical quality. Summary results are attached. FINDINGS: LEFT FEMUR, NECK: BMD 0.673 g/cm2, Z-score -1.4, T-score -2.6, osteoporosis. LEFT FEMUR, TOTAL: BMD 0.786 g/cm2, Z-score -0.8, T-score -1.8, osteopenia. AP SPINE L1-L4: BMD 1.082 g/cm2, Z-score 0.4, T-score -0.8, normal. IDENTIFIED RISK FACTORS: Menopause, kidney disease. HISTORY OF FRACTURE: None listed. MEDICATIONS: Calcium. MM/XR DEXA axial skeleton IMPRESSION: 1. DIAGNOSIS: Osteoporosis based on the lowest T-score value of -2.6 in the femoral neck applying World Health Organization criteria. 2. 10-YEAR FRACTURE RISK PREDICTION, FRAX: According to the guidelines, FRAX calculation should only be performed on patients in the osteopenia bone density category. Therefore, FRAX was not performed on this patient. 3. Treatment Recommendations: NOF guidelines recommend consideration for treatment in postmenopausal women and men age 50 and older presenting with the following: -A hip or vertebral (clinical or morphometric) fracture. -T-score less than or equal to -2.5 at the femoral neck or spine after appropriate evaluation to exclude secondary causes. -Low bone mass at the hip or spine and a 10-year fracture probability by FRAX of greater than or equal to 3% for hip fracture or greater than or equal to 20% for major osteoporotic fracture based on the [place] adapted WHO algorithm. 4. Other Recommendations: All treatment decisions require clinical judgment and consideration of individual patient factors, including patient preferences, comorbidities, previous drug use, risk factors not captured in the FRAX model (e.g. frailty, falls, vitamin D deficiency, increased bone turnover, interval significant decline in bone density) and possible under or overestimation of fracture risk by FRAX. Additional medical evaluation for secondary cause of low bone mineral density may be appropriate. FUTURE SCAN RECOMMENDATION: People with diagnosed cases of osteoporosis or at high risk for fracture should have regular bone mineral density tests. For patients eligible for Medicare, routine testing is allowed once every 2 years. The testing frequency can be increased to one year for patients who have rapidly progressing disease, those who are receiving or discontinuing medical therapy to restore bone mass, or have additional risk factors.
== END 2023-09-30 08:28 | disposition home or self-care (01) ==
LOC: HO.MAMMO 08:27
PROVIDERS: PCP Internal Medicine; Visit Provider Internal Medicine
DX: Z12.31 Encounter for screening mammogram for malignant neoplasm of breast (principal); Z13.820 Encounter for screening for osteoporosis; Z78.0 Asymptomatic menopausal state
CPT/HCPCS: 77063; 77067; 77080

== ENCOUNTER → 2023-09-30 08:45 | Outpatient (BNV) | payer OTHER, SELFPAY | PROVIDERS: PCP Internal Medicine; Visit Provider Radiology Diagnostic Radiology | DX: Z12.31 Encounter for screening mammogram for malignant neoplasm of breast (principal) | CPT/HCPCS: 77063; 77067 ==

== ENCOUNTER 2023-09-30 08:56 | Outpatient (REF) | payer OTHER, SELFPAY ==
[2023-09-30 09:27] LABS: Hematocrit 36.7 % (37.0-47.0); Hemoglobin 12.8 g/dl (12.0-16.0); Mean Corpuscular HGB Conc 34.9 g/dl (31.0-35.0); Mean Corpuscular Hemoglobin 30.3 pg (27.0-33.0); Mean Corpuscular Volume 86.8 fL (80.0-98.0); Mean Platelet Volume 10.1 fL (9.4-12.3); Platelet Count 238 X10*3/uL (160-400); Red Blood Count 4.23 X10*6/uL (4.20-5.50); Red Cell Distribution Width 14.1 % (11.0-16.0)
[2023-09-30 10:02] LABS: Alanine Aminotransferase 19 U/L (0-31); Albumin Level 4.5 g/dL (3.5-5.0); Alkaline Phosphatase 105 U/L (39-117); Anion Gap 11 (12-20); Aspartate Amino Transferase 18 U/L (5-31); Bilirubin Total 0.4 mg/dL (0.0-1.0); Blood Urea Nitrogen 31 mg/dL (9-16); Calcium 10.2 mg/dL (8.4-10.2); Carbon Dioxide 26 mmol/L (22-29); Chloride 110 mmol/L (96-108); Estimated Glomerular Filt Rate 30; Glucose Random 102 mg/dL (60-115); Phosphorus 3.9 mg/dL (2.7-4.5); Sodium 143 mmol/L (135-145)
[2023-09-30 10:04] LABS: Parathyroid Hormone Intact 105.9 pg/mL (8.7-77.1)
== END 2023-09-30 08:57 | disposition home or self-care (01) ==
LOC: HO.LAB 08:56
PROVIDERS: PCP Internal Medicine; Visit Provider Internal Medicine Hypertension Specialist
DX: E83.52 Hypercalcemia (principal); N18.30 Chronic kidney disease, stage 3 unspecified; N18.9 Chronic kidney disease, unspecified
CPT/HCPCS: 36415; 80053; 83970; 84100; 85027

== ENCOUNTER 2023-10-06 10:59 | Outpatient (AMB) | payer OTHER, SELFPAY ==
--- NOTE | 2023-10-06 11:10 | HO.NEPHOV ---
Vital Signs 10/06/23 11:11 Height 5 ft 3 in Weight 147 lb BMI 26.0 BP 124/70 Blood Pressure Location Lt brachial Position Sitting Pulse 80 Pulse Source Pulse Oximeter Pulse Oximetry (%) 96 Oxygen Delivery Method Room Air Intake Visit Reasons: MARY/ 4 MO FU/ Conf [employer] Required: Yes [employer] Name: Judith [id number] Accompanied by: Self / Same As Patient Allergies Tramadol Adverse Reaction (Mild, Uncoded 06/03/23 11:32) heart racing Medication List - Last Reconciled 10/06/23 by Rylan Crouch MD amlodipine 5 mg PO DAILY cinacalcet 30 mg PO DAILY clonazepam 0.5 mg PO DAILY prazosin 2 mg PO BEDTIME quetiapine 100 mg PO BEDTIME rosuvastatin 40 mg PO DAILY sertraline 100 mg PO BID HPI Comments Details: Middle-aged woman with history of hypertension and stage III chronic disease. Her baseline serum creatinine from 1.2 mg/dL. She had a kidney biopsy back in 2020 which showed acute tubular injury with mild interstitial nephritis. 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 She was in [place] last month. At that time she was found to have hypercalcemia with a calcium 11.0. She also sustained acute kidney injury with the creatinine bumping up to 1.44. Labs as of labs when 10/17/2022 revealed a creatinine 1.8 and she had mild hyper natremia with a sodium of 146 and mild hypokalemia. She is on Lasix 20 mg q.d.. She denies taking any NSAIDs or Garg inhibitors. She denies any urinary symptoms. [employer] service was used 03/18/23;Feels better ;Off Lasix 05/11/23; REcently went to [place]; Had leg edema and visited ER. No dyspnea; No further edema 06/03/23: No new issues besides feeling tired No edema PFSH Medical History Hypercholesteremia Depression Hypertension Surgical History H/O arthroscopy of right knee (11/18/19) Hx of tubal ligation Family History Mother HTN (hypertension) Social History Alcohol intake: current Alcohol intake frequency: holidays/special occasions only Patient Tobacco Use Status: Current someday Tobacco user Tobacco use type: Cigar Years Smoked: 30 +/- only smokes cigars once in a blue Physical Exam Vital Signs: Last Vital Signs Pulse 80 10/06/23 11:11 BP 124/70 10/06/23 11:11 Pulse Ox 96 10/06/23 11:11 Oxygen Delivery Method Room Air 10/06/23 11:11 BMI result Body Mass Index 26.0 Const General: comfortable; No acute distress Orientation/consciousness: patient oriented x3 Eyes General: appearance normal, both eyes and all related structures Visual Hong: normal visual hong by confrontation Neck Neck: Yes supple and Yes no JVD Resp Effort & Inspection: normal respiratory effort and respiratory effort not decreased Auscultation: rhonchi Cardio Palpation: no palpable S3 and no palpable S4 Heart sounds: no rubs GI Inspection: Yes normal to inspection Palpation (GI): Soft to palpation Percussion: Yes normal to percussion Auscultation: normal bowel sounds General: Yes no CVA tenderness Back/Spine/Pelvis Back: no CVA tenderness Skin General skin exam: no petechiae and no purpura Neuro General: patient oriented x3 and no focal motor deficits Extrem General: No clubbing and No edema Results Reviewed Nephrology Results: Hgb 12.8 g/dl (12.0-16.0) 09/30/23 WBC 8.0 X10*3/uL (4.8-10.8) 09/30/23 Plt Count 238 X10*3/uL (160-400) 09/30/23 Sodium 143 mmol/L (135-145) 09/30/23 Potassium 4.0 mmol/L (3.3-5.1) 09/30/23 Chloride 110 mmol/L (96-108) H 09/30/23 Carbon Dioxide 26 mmol/L (22-29) 09/30/23 BUN 31 mg/dL (9-16) H 09/30/23 Creatinine 1.75 mg/dL (0.5-1.4) H 09/30/23 Calcium 10.2 mg/dL (8.4-10.2) 09/30/23 Phosphorus 3.9 mg/dL (2.7-4.5) 09/30/23 PTH Intact 105.9 pg/mL (8.7-77.1) H 09/30/23 Assessment & Plan Assessment & Plan (1) CKD (chronic kidney disease) stage 3, GFR 30-59 ml/min: Code(s): N18.30 - Chronic kidney disease, stage 3 unspecified Category: Medical (2) MARY (acute kidney injury): Code(s): N17.9 - Acute kidney failure, unspecified Category: Medical (3) Hypercalcemia: Code(s): E83.52 - Hypercalcemia Category: Medical (4) Hypernatremia: Code(s): E87.0 - Hyperosmolality and hypernatremia Category: Medical (5) Hypokalemia: Code(s): E87.6 - Hypokalemia Category: Medical Plan Middle-aged woman with hypertension- acute kidney injury superimposed on chronic disease along with hypercalcemia. CT scan in the past revealed nonobstructive to renal calculi. s/p MARY Hypoperfusion from volume depletion secondary to use of Lasix- especially since she has hypernatremia and hypokalemia. Creatinien improved after stopping LASIX/Lisinopril Increase her to increase fluid intake. history of renal stones ; No obstructive uropathy She has also developed hypercalcemia. PTH is elevated and serum electrophoresis is normal. Other serologies normal Keep Cinacalcet 30 mg Q D Orders: Orders Proteinase 3 PR3 Antibodies 6 Weeks E83.52 - Hypercalcemia, N18.30 - Chronic kidney disease, stage 3 unspecified Myeloperoxidase Antibody 6 Weeks E83.52 - Hypercalcemia, N18.30 - Chronic kidney disease, stage 3 unspecified Protein Electrophoresis, Serum 6 Weeks E83.52 - Hypercalcemia, N18.30 - Chronic kidney disease, stage 3 unspecified Comprehensive Met. Panel 6 Weeks E83.52 - Hypercalcemia, N18.30 - Chronic kidney disease, stage 3 unspecified Parathyroid Hormone Intact 6 Weeks E83.52 - Hypercalcemia, N18.30 - Chronic kidney disease, stage 3 unspecified Complement C3 6 Weeks E83.52 - Hypercalcemia, N18.30 - Chronic kidney disease, stage 3 unspecified Complement C4 6 Weeks E83.52 - Hypercalcemia, N18.30 - Chronic kidney disease, stage 3 unspecified Anti Glomerular Basement Memb 6 Weeks E83.52 - Hypercalcemia, N18.30 - Chronic kidney disease, stage 3 unspecified Neutrophil Cytoplasma Ab 6 Weeks E83.52 - Hypercalcemia, N18.30 - Chronic kidney disease, stage 3 unspecified Coding Level of Care Code Est Pt Level 4 (96208) Diagnoses CKD (chronic kidney disease) stage 3, GFR 30-59 ml/min N18.30 MARY (acute kidney injury) N17.9 Hypercalcemia E83.52 Hypernatremia E87.0 Hypokalemia E87.6
[2023-10-06 11:11] VITALS: BP 124/70; PULSE 80; O2SAT 96; BMI 26.0
== END 2023-10-06 11:26 | disposition home or self-care (01) ==
PROVIDERS: PCP Internal Medicine; Visit Provider Internal Medicine Hypertension Specialist
DX: N18.30 Chronic kidney disease, stage 3 unspecified (principal); N17.9 Acute kidney failure, unspecified; E83.52 Hypercalcemia; E87.0 Hyperosmolality and hypernatremia; E87.6 Hypokalemia
CPT/HCPCS: 99214

== ENCOUNTER → 2023-10-06 10:59 | Outpatient (BNVA) | payer OTHER, SELFPAY | PROVIDERS: PCP Internal Medicine; Visit Provider Internal Medicine Hypertension Specialist | DX: N18.30 Chronic kidney disease, stage 3 unspecified (principal); N17.9 Acute kidney failure, unspecified; E83.52 Hypercalcemia; E87.0 Hyperosmolality and hypernatremia; E87.6 Hypokalemia | CPT/HCPCS: 99212 ==

== ENCOUNTER 2023-10-14 09:04 | Outpatient (REF) | payer OTHER, SELFPAY ==
[2023-10-14 09:56] LABS: Alanine Aminotransferase 17 U/L (0-31); Albumin Level 4.4 g/dL (3.5-5.0); Alkaline Phosphatase 100 U/L (39-117); Anion Gap 15 (12-20); Aspartate Amino Transferase 19 U/L (5-31); Bilirubin Total 0.5 mg/dL (0.0-1.0); Blood Urea Nitrogen 23 mg/dL (9-16); Calcium 9.7 mg/dL (8.4-10.2); Carbon Dioxide 25 mmol/L (22-29); Chloride 109 mmol/L (96-108); Cholesterol 161 mg/dL (<200); Estimated Glomerular Filt Rate 35; Glucose Random 110 mg/dL (60-115); HDL Cholesterol 40 mg/dL (>40); LDL Cholesterol Calculated 68 mg/dL (<100); Potassium 3.5 mmol/L (3.3-5.1); Sodium 145 mmol/L (135-145); Total Protein 7.5 g/dL (6.5-8.0); Triglycerides 266 mg/dL (<150)
== END 2023-10-14 09:05 | disposition home or self-care (01) ==
LOC: HO.LAB 09:04
PROVIDERS: PCP Internal Medicine; Visit Provider Internal Medicine
DX: I12.9 Hypertensive chronic kidney disease with stage 1 through stage 4 chronic kidney disease, or unspecified chronic kidney disease (principal); E78.00 Pure hypercholesterolemia, unspecified; E83.52 Hypercalcemia; M48.062 Spinal stenosis, lumbar region with neurogenic claudication; N18.9 Chronic kidney disease, unspecified
CPT/HCPCS: 36415; 80053; 80061

== ENCOUNTER 2023-12-29 10:14 | Outpatient (REF) | payer OTHER, SELFPAY ==
[2023-12-29 11:33] LABS: Alanine Aminotransferase 18 U/L (0-31); Albumin Level 4.5 g/dL (3.5-5.0); Alkaline Phosphatase 115 U/L (39-117); Anion Gap 12 (12-20); Aspartate Amino Transferase 18 U/L (5-31); Bilirubin Total 0.6 mg/dL (0.0-1.0); Blood Urea Nitrogen 23 mg/dL (9-16); Calcium 9.8 mg/dL (8.4-10.2); Carbon Dioxide 26 mmol/L (22-29); Chloride 111 mmol/L (96-108); Estimated Glomerular Filt Rate 28; Glucose Random 89 mg/dL (60-115); Potassium 3.6 mmol/L (3.3-5.1); Sodium 145 mmol/L (135-145); Total Protein 7.9 g/dL (6.5-8.0)
[2023-12-29 11:36] LABS: Parathyroid Hormone Intact 94.9 pg/mL (8.7-77.1)
[2023-12-30 15:38] LABS: Complement C3 161 mg/dL (83-193)
[2023-12-30 20:09] LABS: Anti Glomerular Basement Memb <1.0 AI; Myeloperoxidase Antibody <1.0 AI; Proteinase 3 PR3 Antibodies <1.0 AI
[2023-12-31 08:54] LABS: Prot Elec - Albumin 4.5 g/dL (3.8-4.8); Prot Elec - Alpha1 0.3 g/dL (0.2-0.3); Prot Elec - Alpha2 0.8 g/dL (0.5-0.9); Prot Elec - Beta 1 0.4 g/dL (0.4-0.6); Prot Elec - Beta 2 0.4 g/dL (0.2-0.5); Prot Elec - Gamma 1.1 g/dL (0.8-1.7); Prot Elec - Total Protein 7.5 g/dL (6.1-8.1)
[2023-12-31 13:28] LABS: Neutrophil Cyto Ab Screen NEGATIVE (NEGATIVE)
== END 2023-12-29 10:15 | disposition home or self-care (01) ==
LOC: HO.LAB 10:14
PROVIDERS: PCP Internal Medicine; Visit Provider Internal Medicine Hypertension Specialist
DX: E83.52 Hypercalcemia (principal); N18.30 Chronic kidney disease, stage 3 unspecified
CPT/HCPCS: 36415; 80053; 83520; 83970; 84165; 86021; 86036; 86160

== ENCOUNTER 2023-12-29 16:46 | Emergency (ER) | payer OTHER, SELFPAY ==
--- NOTE | ~2023-12-29 | XR_ITS ---
EXAMINATION: XR CHEST CLINICAL INFORMATION: Pain COMPARISON: Chest pain on 02/21/23 TECHNIQUE: 2 views of the chest were obtained. FINDINGS: No significant abnormality is noted involving the heart, lungs, mediastinum, bony thorax or soft tissues. XR/XR chest 2V IMPRESSION: Unremarkable examination. Electronically signed by: Khadra Saldaña MD 12/29/2023 06:22 PM EDT RP
--- NOTE | 2023-12-29 16:48 | ECG_ITS ---
Test Reason : CHEST PAIN Blood Pressure : / mmHG Vent. Rate : 076 BPM Atrial Rate : 076 BPM P-R Int : 156 ms QRS Dur : 096 ms QT Int : 396 ms P-R-T Axes : 031 046 068 degrees QTc Int : 445 ms Normal sinus rhythm Normal ECG When compared with ECG of 21-FEB-2023 19:17, Nonspecific T wave abnormality is no longer Present Referred By: Generic ED Physician Electronically Signed By:KAYKAY VOGEL
[2023-12-29 17:36] VITALS: BP 148/61; PULSE 69; RESP 16; TEMP 36.8; O2SAT 96; BMI 26.1
--- NOTE | 2023-12-29 17:45 | ED_ITS ---
HPI - Chest Pain General Chief Complaint: Chest Pain Stated Complaint: chest pain Time Seen by Provider: 12/29/23 22:40 Source: patient Mode of arrival: ambulatory Limitations: no limitations Related Data Home Medications ?Medication ?Instructions ?Recorded ?Confirmed amlodipine 5 mg tablet 5 mg PO DAILY 11/22/20 10/06/23 prazosin 2 mg capsule 2 mg PO BEDTIME 11/22/20 10/06/23 sertraline 100 mg tablet 100 mg PO BID 11/22/20 10/06/23 clonazepam 0.5 mg tablet 0.5 mg PO DAILY 10/16/21 10/06/23 quetiapine 100 mg tablet 100 mg PO BEDTIME 07/09/22 10/06/23 rosuvastatin 40 mg tablet 40 mg PO DAILY 10/06/23 10/06/23 Previous Rx's ?Medication ?Instructions ?Recorded furosemide 20 mg tablet 20 mg PO DAILY #30 tabs 10/20/23 cinacalcet 30 mg tablet 30 mg PO DAILY #30 tabs 12/11/23 omeprazole 40 mg capsule,delayed 40 mg PO DAILY #30 caps 12/29/23 release Allergies Allergy/AdvReac Type Severity Reaction Status Date / Time Tramadol AdvReac Mild heart Uncoded 12/29/23 17:37 racing PMFSH Past Medical History Medical History Hypercholesteremia Depression Hypertension Surgical History H/O arthroscopy of right knee (11/18/19) Hx of tubal ligation Family History Family History Mother HTN (hypertension) Social History Social History Alcohol intake: current Alcohol intake frequency: does not drink Patient Tobacco Use Status: Current someday Tobacco user Tobacco use type: Cigar Years Smoked: 30 +/- only smokes cigars once in a blue Smoked in Last 30 Days: No Use of substances other than those prescribed or required for medical reasons: No Advance Directives: No Advance Directives Information Provided: No Physical Exam 2 Vital Signs: Vital Signs: Last Vital Signs Temp 98.6 F 12/30/23 01:13 Pulse 55 10/01/24 01:13 Resp 16 12/30/23 01:13 BP 111/63 12/30/23 01:13 Pulse Ox 98 12/30/23 01:13 O2 Del Method Room Air 12/30/23 01:13 BMI result Body Mass Index 26.1 Course Course Course Narrative: RME, this is a rapid medical exam performed by Deep Lee please refer to primary provider for complete H&P- 63-year-old female presents for evaluation of multiple complaints including abdominal pain, chest pain, lower back pain that radiates down to her right leg. Symptoms started about 1 week ago. Plan for labs, chest x-ray, urinalysis Medications Administered Discontinued Medications Generic Name Dose Route Start Last Admin Trade Name Kenisha PRN Reason Stop Dose Admin Al Hydroxide/Mg Hydroxide 30 ml 12/29/23 23:37 12/29/23 23:53 Magnesium Hydrox/Alum Hydrox 30 Ml Oral.Susp PO 12/29/23 23:38 30 ml ONCE ONE Administration Lidocaine HCl 15 ml 12/29/23 23:37 12/29/23 23:53 Lidocaine Hcl Viscous 2 % 15 Ml Solution MUCOUS MEM 12/29/23 23:38 15 ml ONCE ONE Administration Omeprazole 40 mg 12/29/23 23:37 12/29/23 23:53 Omeprazole 40 Mg Capsule.Dr PO 12/29/23 23:38 40 mg ONCE ONE Administration Medical Decision Making Lab Data 12/29/23 17:52 12/29/23 17:52 Labs: Lab Results 12/29/23 12/29/23 12/30/23 Range/Units 17:52 20:35 00:35 WBC 9.0 (4.8-10.8) X10*3/uL RBC 3.93 L (4.20-5.50) X10*6/uL Hgb 11.8 L (12.0-16.0) g/dl Hct 34.0 L (37.0-47.0) % MCV 86.5 (80.0-98.0) fL MCH 30.0 (27.0-33.0) pg MCHC 34.7 (31.0-35.0) g/dl RDW 13.6 (11.0-16.0) % Plt Count 216 (160-400) X10*3/uL MPV 10.4 (9.4-12.3) fL Immature Gran % (Auto) 0.3 (0.0-0.4) % Neut % (Auto) 56.3 (45-73) % Lymph % (Auto) 32.2 (20-40) % [place] % (Auto) 9.5 (2-11) % Eos % (Auto) 1.4 (0-4) % Baso % (Auto) 0.3 (0-2) % Lymph # (Auto) 2.9 (1.2-4.9) X10*3/uL [place] # (Auto) 0.9 (0.1-1.2) X10*3/uL Eos # (Auto) 0.1 (0.0-0.4) X10*3/uL Baso # (Auto) 0.0 (0.0-0.2) X10*3/uL Abs Immat Gran (auto) 0.03 (0.00-0.03) X10*3/uL Absolute Neuts (auto) 5.0 (2.0-8.3) x10*3/uL Absolute Nucleated RBC 0.000 (0.0-0.012) X10*3/uL Nucleated RBC % (auto) 0.0 (0.0-0.2) /100WBC PT 10.7 L (10.9-12.4) SEC INR 0.9 (0.9-1.1) Sodium 146 H (135-145) mmol/L Potassium 3.4 (3.3-5.1) mmol/L Chloride 110 H (96-108) mmol/L Carbon Dioxide 25 (22-29) mmol/L Anion Gap 14 (12-20) BUN 26 H (9-16) mg/dL Creatinine 2.08 H (0.5-1.4) mg/dL Estim Creat Clear Calc 26.0 Estimated GFR 24 Random Glucose 127 H (60-115) mg/dL Calcium 9.5 (8.4-10.2) mg/dL Total Bilirubin 0.4 (0.0-1.0) mg/dL AST 17 (5-31) U/L ALT 16 (0-31) U/L Alkaline Phosphatase 120 H (39-117) U/L Troponin I High Sens 4.1 5.0 (<3.5-17.0) ng/L Total Protein 7.6 (6.5-8.0) g/dL Albumin 4.3 (3.5-5.0) g/dL Lipase 24 (8-78) U/L Urine Color Yellow Urine Appearance Clear Urine pH 5.5 (5.0-9.0) Ur Specific [place] 1.015 (1.005-1.025) Urine Protein 100 (2+) H (Neg-Trace) mg/dL Urine Glucose (UA) Negative (Negative) mg/dL Urine Ketones Negative (Negative) mg/dL Urine Blood Small (1+) H (Negative) Urine Nitrite Negative (Negative) Ur Leukocyte Esterase Negative (Negative) Urine RBC 0-2 (0-2) /HPF Urine WBC 0-5 (0-5) /HPF Ur Squamous Epith Cells 0-2 (0-2) /HPF Urine Bacteria None Seen (None Seen) Hyaline Casts 0-2 (0-2) /LPF Discharge Plan Discharge Clinical Impression: Atypical chest pain Patient Disposition: Home, Self-Care Instructions: Chest Pain (ED) Additional Instructions: Your chest pain is unlikely from the heart you need further investigation Take Prilosec 40 mg daily for possible gastritis as the cause for the pain Follow with PCP Avoid fried foods Prescriptions: New omeprazole 40 mg capsule,delayed release(DR/EC) 40 mg PO DAILY Qty: 30 0RF No Action furosemide 20 mg tablet 20 mg PO DAILY Qty: 30 3RF cinacalcet 30 mg tablet 30 mg PO DAILY Qty: 30 0RF amlodipine 5 mg tablet 5 mg PO DAILY prazosin 2 mg capsule 2 mg PO BEDTIME sertraline 100 mg tablet 100 mg PO BID clonazepam 0.5 mg tablet 0.5 mg PO DAILY quetiapine 100 mg tablet 100 mg PO BEDTIME rosuvastatin 40 mg tablet 40 mg PO DAILY Interventions: ED Discharge Assessment Last Done: 12/30/23 01:13 Discharge Date/Time: 12/30/23 01:15 Print Language: Bengali
[2023-12-29 17:57] LABS: MANUAL DIFF FLAG NO
[2023-12-29 17:59] LABS: Basophils Percent Auto 0.3 % (0-2); Eosinophils Absolute Auto 0.1 X10*3/uL (0.0-0.4); Eosinophils Percent Auto 1.4 % (0-4); Hemoglobin 11.8 g/dl (12.0-16.0); Imm Gran Abs Auto 0.03 X10*3/uL (0.00-0.03); Imm Gran Pct Auto 0.3 % (0.0-0.4); Lymphocytes Absolute Auto 2.9 X10*3/uL (1.2-4.9); Lymphocytes Percent Auto 32.2 % (20-40); Mean Corpuscular HGB Conc 34.7 g/dl (31.0-35.0); Mean Corpuscular Volume 86.5 fL (80.0-98.0); Mean Platelet Volume 10.4 fL (9.4-12.3); Monocytes Absolute Auto 0.9 X10*3/uL (0.1-1.2); Monocytes Percent Auto 9.5 % (2-11); Neutrophils Percent Auto 56.3 % (45-73); Platelet Count 216 X10*3/uL (160-400); Red Blood Count 3.93 X10*6/uL (4.20-5.50); Red Cell Distribution Width 13.6 % (11.0-16.0)
[2023-12-29 18:06] LABS: INTERNATIONAL NORM RATIO 0.9 (0.9-1.1); Prothrombin Time 10.7 SEC (10.9-12.4)
[2023-12-29 18:12] LABS: Alanine Aminotransferase 16 U/L (0-31); Albumin Level 4.3 g/dL (3.5-5.0); Alkaline Phosphatase 120 U/L (39-117); Anion Gap 14 (12-20); Aspartate Amino Transferase 17 U/L (5-31); Bilirubin Total 0.4 mg/dL (0.0-1.0); Blood Urea Nitrogen 26 mg/dL (9-16); Calcium 9.5 mg/dL (8.4-10.2); Carbon Dioxide 25 mmol/L (22-29); Chloride 110 mmol/L (96-108); Estimated Glomerular Filt Rate 24; Glucose Random 127 mg/dL (60-115); Lipase 24 U/L (8-78); Potassium 3.4 mmol/L (3.3-5.1); Sodium 146 mmol/L (135-145); Total Protein 7.6 g/dL (6.5-8.0)
[2023-12-29 18:19] LABS: Troponin-I High Sensitivity 4.1 ng/L (<3.5-17.0)
[2023-12-29 22:43] VITALS: BP 152/73; PULSE 65; RESP 18; TEMP 36.5; O2SAT 97
--- NOTE | 2023-12-29 22:44 | MHC.EDTECH ---
This pct just assumed care of Patient ,vitals taken ,pt was change into hospital attire ,Patient was hooked up to monitoring and evaluation advisor ,Patient at bedside ,Call paz within Pt reach .
--- NOTE | 2023-12-29 22:44 | PC.NURSE ---
Pt a&ox4, no signs of distress Pt ambulates with steady gait Pt reports 10/10 body pain Pts family at bedside Pt placed on bedside monitor Plan of care ongoing.
--- NOTE | 2023-12-29 23:36 | ED_ITS ---
HPI - Chest Pain General Chief Complaint: Chest Pain Stated Complaint: chest pain Time Seen by Provider: 12/29/23 22:40 Source: patient Limitations: no limitations History of Present Illness ED Provider: darrell PALACIOS narrative: Patient with history of hypertension and CKD creatinine of 2 comes here for epigastric pain started earlier today no known coronary artery disease pain is localized in epigastric area going to mid chest no history of gastritis or reflux problems no history of ulcer or pancreatic disease no right upper quadrant pain no nausea no vomiting patient had 2 sets of troponin done prior to my evaluation which were negative EKG without any ischemic changes Related Data Home Medications ?Medication ?Instructions ?Recorded ?Confirmed amlodipine 5 mg tablet 5 mg PO DAILY 11/22/20 10/06/23 prazosin 2 mg capsule 2 mg PO BEDTIME 11/22/20 10/06/23 sertraline 100 mg tablet 100 mg PO BID 11/22/20 10/06/23 clonazepam 0.5 mg tablet 0.5 mg PO DAILY 10/16/21 10/06/23 quetiapine 100 mg tablet 100 mg PO BEDTIME 07/09/22 10/06/23 rosuvastatin 40 mg tablet 40 mg PO DAILY 10/06/23 10/06/23 Previous Rx's ?Medication ?Instructions ?Recorded furosemide 20 mg tablet 20 mg PO DAILY #30 tabs 10/20/23 cinacalcet 30 mg tablet 30 mg PO DAILY #30 tabs 12/11/23 omeprazole 40 mg capsule,delayed 40 mg PO DAILY #30 caps 12/29/23 release Allergies Allergy/AdvReac Type Severity Reaction Status Date / Time Tramadol AdvReac Mild heart Uncoded 12/29/23 17:37 racing Review of Systems 2 Review of Systems: Yes all other systems are reviewed and are negative [facility] Past Medical History Medical History Hypercholesteremia Depression Hypertension Surgical History H/O arthroscopy of right knee (11/18/19) Hx of tubal ligation Family History Family History Mother HTN (hypertension) Social History Social History Alcohol intake: current Alcohol intake frequency: does not drink Patient Tobacco Use Status: Current someday Tobacco user Tobacco use type: Cigar Years Smoked: 30 +/- only smokes cigars once in a blue Smoked in Last 30 Days: No Use of substances other than those prescribed or required for medical reasons: No Advance Directives: No Advance Directives Information Provided: No Physical Exam 2 Vital Signs: Vital Signs: Last Vital Signs Temp 98.6 F 12/30/23 01:13 Pulse 55 12/30/23 01:13 Resp 16 12/30/23 01:13 BP 111/63 12/30/23 01:13 Pulse Ox 98 12/30/23 01:13 O2 Del Method Room Air 12/30/23 01:13 BMI result Body Mass Index 26.1 Appearance: Alert. Oriented X3. No acute distress. Eyes: No pallor or icterus ENT: Pharynx normal. Oral Mucosa moist Neck: Normal inspection. Neck supple. CVS: Normal heart rate and rhythm. Pulses normal. Respiratory: No respiratory distress. Equal air entry bilateral, no wheezing/rales/rhonchi Abdomen: Soft and tenderness in epigastric area. Bowel sounds are present, no mass palpable, no CVA tenderness Skin: Skin warm and dry. Normal skin color. Normal skin turgor. Extremities: No lower extremity edema. No calf tenderness Neuro: Oriented X 3. Medications Administered Discontinued Medications Generic Name Dose Route Start Last Admin Trade Name Freq PRN Reason Stop Dose Admin Al Hydroxide/Mg Hydroxide 30 ml 12/29/23 23:37 12/29/23 23:53 Magnesium Hydrox/Alum Hydrox 30 Ml Oral.Susp PO 12/29/23 23:38 30 ml ONCE ONE Administration Lidocaine HCl 15 ml 12/29/23 23:37 12/29/23 23:53 Lidocaine Hcl Viscous 2 % 15 Ml Solution MUCOUS MEM 12/29/23 23:38 15 ml ONCE ONE Administration Omeprazole 40 mg 12/29/23 23:37 12/29/23 23:53 Omeprazole 40 Mg Capsule.Dr PO 12/29/23 23:38 40 mg ONCE ONE Administration Medical Decision Making Medical Decision Making [facility] Narrative: Patient has atypical chest pain without any ischemic changes in the EKG 2 sets of troponin negative will discharge patient home advised to follow with production control technologist Differential Diagnosis Differential Diagnoses: The differential diagnosis associated with the presentation includes Admission/Observation Consideration of admission/observation: Escalation of care including admission/observation considered Lab Data MDM Lab Attestation statement: I reviewed the patient's lab results. 12/29/23 17:52 12/29/23 17:52 Labs: Lab Results 12/29/23 12/29/23 12/30/23 Range/Units 17:52 20:35 00:35 WBC 9.0 (4.8-10.8) X10*3/uL RBC 3.93 L (4.20-5.50) X10*6/uL Hgb 11.8 L (12.0-16.0) g/dl Hct 34.0 L (37.0-47.0) % MCV 86.5 (80.0-98.0) fL MCH 30.0 (27.0-33.0) pg MCHC 34.7 (31.0-35.0) g/dl RDW 13.6 (11.0-16.0) % Plt Count 216 (160-400) X10*3/uL MPV 10.4 (9.4-12.3) fL Immature Gran % (Auto) 0.3 (0.0-0.4) % Neut % (Auto) 56.3 (45-73) % Lymph % (Auto) 32.2 (20-40) % [place] % (Auto) 9.5 (2-11) % Eos % (Auto) 1.4 (0-4) % Baso % (Auto) 0.3 (0-2) % Lymph # (Auto) 2.9 (1.2-4.9) X10*3/uL [place] # (Auto) 0.9 (0.1-1.2) X10*3/uL Eos # (Auto) 0.1 (0.0-0.4) X10*3/uL Baso # (Auto) 0.0 (0.0-0.2) X10*3/uL Abs Immat Gran (auto) 0.03 (0.00-0.03) X10*3/uL Absolute Neuts (auto) 5.0 (2.0-8.3) x10*3/uL Absolute Nucleated RBC 0.000 (0.0-0.012) X10*3/uL Nucleated RBC % (auto) 0.0 (0.0-0.2) /100WBC PT 10.7 L (10.9-12.4) SEC INR 0.9 (0.9-1.1) Sodium 146 H (135-145) mmol/L Potassium 3.4 (3.3-5.1) mmol/L Chloride 110 H (96-108) mmol/L Carbon Dioxide 25 (22-29) mmol/L Anion Gap 14 (12-20) BUN 26 H (9-16) mg/dL Creatinine 2.08 H (0.5-1.4) mg/dL Estim Creat Clear Calc 26.0 Estimated GFR 24 Random Glucose 127 H (60-115) mg/dL Calcium 9.5 (8.4-10.2) mg/dL Total Bilirubin 0.4 (0.0-1.0) mg/dL AST 17 (5-31) U/L ALT 16 (0-31) U/L Alkaline Phosphatase 120 H (39-117) U/L Troponin I High Sens 4.1 5.0 (<3.5-17.0) ng/L Total Protein 7.6 (6.5-8.0) g/dL Albumin 4.3 (3.5-5.0) g/dL Lipase 24 (8-78) U/L Urine Color Yellow Urine Appearance Clear Urine pH 5.5 (5.0-9.0) Ur Specific [place] 1.015 (1.005-1.025) Urine Protein 100 (2+) H (Neg-Trace) mg/dL Urine Glucose (UA) Negative (Negative) mg/dL Urine Ketones Negative (Negative) mg/dL Urine Blood Small (1+) H (Negative) Urine Nitrite Negative (Negative) Ur Leukocyte Esterase Negative (Negative) Urine RBC 0-2 (0-2) /HPF Urine WBC 0-5 (0-5) /HPF Ur Squamous Epith Cells 0-2 (0-2) /HPF Urine Bacteria None Seen (None Seen) Hyaline Casts 0-2 (0-2) /LPF Independent Interpretation I performed an independent interpretation of an: EKG Interpretation: Normal sinus rhythm heart rate 76 beats per minute normal interval normal axis no acute STT wave changes no acute ischemia Discharge Plan Discharge Clinical Impression: Atypical chest pain Patient Disposition: Home, Self-Care Instructions: Chest Pain (ED) Additional Instructions: Your chest pain is unlikely from the heart you need further investigation Take Prilosec 40 mg daily for possible gastritis as the cause for the pain Follow with PCP Avoid fried foods Prescriptions: New omeprazole 40 mg capsule,delayed release(DR/EC) 40 mg PO DAILY Qty: 30 0RF No Action furosemide 20 mg tablet 20 mg PO DAILY Qty: 30 3RF cinacalcet 30 mg tablet 30 mg PO DAILY Qty: 30 0RF amlodipine 5 mg tablet 5 mg PO DAILY prazosin 2 mg capsule 2 mg PO BEDTIME sertraline 100 mg tablet 100 mg PO BID clonazepam 0.5 mg tablet 0.5 mg PO DAILY quetiapine 100 mg tablet 100 mg PO BEDTIME rosuvastatin 40 mg tablet 40 mg PO DAILY Interventions: ED Discharge Assessment Last Done: 12/30/23 01:13 Discharge Date/Time: 12/30/23 01:15 Print Language: Citizen [place]
[2023-12-29] MEDS: Magnesium Hydrox/Alum Hydrox 30 ML ORAL.SUSP PO (23:53)
[2023-12-29] MEDS: Lidocaine HCl Viscous 2 % 15 ML SOLUTION MUCOUS MEM (23:53)
[2023-12-29] MEDS: Omeprazole 40 MG CAPSULE.DR PO (23:53)
[2023-12-30 00:11] VITALS: BP 111/63; PULSE 55; RESP 16; TEMP 37; O2SAT 98
[2023-12-30 00:42] LABS: Appearance Urine Clear; Color Urine Yellow; Glucose Urine UA Negative (Negative); Leukocyte Esterase Urine Negative (Negative); Nitrite Urine Negative (Negative); PH 5.5 (5.0-9.0); Specific Gravity - Urine 1.015 (1.005-1.025); UMIC TRIGGER UACC YES; Urine Blood Small (1+) (Negative); Urine Ketones Negative (Negative); Urine Protein 100 (2+) mg/dL (Neg-Trace)
[2023-12-30 00:50] LABS: Bacteria Urine None Seen (None Seen); Hyaline Casts Urine 0-2 /LPF (0-2); RBC Urine 0-2 /HPF (0-2); Squamous Epithelial Cell Urine 0-2 /HPF (0-2); WBC Urine 0-5 /HPF (0-5)
[2023-12-30 01:13] VITALS: BP 111/63; PULSE 55; RESP 16; TEMP 37; O2SAT 98
== END 2023-12-30 01:15 | disposition home or self-care (01) ==
PROVIDERS: Physician Assistant; Emergency Provider Internal Medicine; PCP Internal Medicine
DX: R07.89 Other chest pain (principal); I10 Essential (primary) hypertension; E78.00 Pure hypercholesterolemia, unspecified; Z79.899 Other long term (current) drug therapy; Z79.02 Long term (current) use of antithrombotics/antiplatelets
CPT/HCPCS: 36415; 71046; 80053; 81001; 83690; 84484; 85025; 85610; 93005; 99283; 99285

== ENCOUNTER 2024-01-01 10:07 | Outpatient (AMB) | payer OTHER, SELFPAY ==
[2024-01-01 10:07] VITALS: BP 122/70; PULSE 78; O2SAT 96; BMI 26.4
--- NOTE | 2024-01-01 10:07 | HO.NEPHOV_ITS ---
Vital Signs 01/01/24 10:07 Height 5 ft 3 in Weight 149 lb BMI 26.4 BP 122/70 Blood Pressure Location Lt brachial Position Sitting Pulse 78 Pulse Source Pulse Oximeter Pulse Oximetry (%) 96 Oxygen Delivery Method Room Air Intake Visit Reasons: 2 mon follow up/ LVM College And Career Counselor Required: Yes College And Career Counselor Name: [id number] [email or web address] Accompanied by: Spouse Allergies Tramadol Adverse Reaction (Mild, Uncoded 12/29/23 17:37) heart racing Medication List - Last Reconciled 01/01/24 by Rylan Crouch MD amlodipine 5 mg PO DAILY cinacalcet 30 mg PO DAILY clonazepam 0.5 mg PO DAILY furosemide 20 mg PO DAILY omeprazole 40 mg PO DAILY PRN prazosin 2 mg PO BEDTIME quetiapine 100 mg PO BEDTIME rosuvastatin 40 mg PO DAILY sertraline 100 mg PO BID HPI Comments Details: Middle-aged woman with history of hypertension and stage III chronic disease. Her baseline serum creatinine from 1.2 mg/dL. She had a kidney biopsy back in 2020 which showed acute tubular injury with mild interstitial nephritis. 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 She was in [place] last month. At that time she was found to have hypercalcemia with a calcium 11.0. She also sustained acute kidney injury with the creatinine bumping up to 1.44. Labs as of labs when 10/17/2022 revealed a creatinine 1.8 and she had mild hyper natremia with a sodium of 146 and mild hypokalemia. She is on Lasix 20 mg q.d.. She denies taking any NSAIDs or Garg inhibitors. She denies any urinary symptoms. College And Career Counselor service was used 03/18/23;Feels better ;Off Lasix 05/11/23; REcently went to [place]; Had leg edema and visited ER. No dyspnea; No further edema 06/03/23: No new issues besides feeling tired No edema 01/01/24 REcently went to [place] Had back pain x 1 month Went to ER No NSAIDS NO imaging recently In 2022, CT showed multiple stones. [facility] Medical History Hypercholesteremia Depression Hypertension Surgical History H/O arthroscopy of right knee (11/18/19) Hx of tubal ligation Family History Mother HTN (hypertension) Social History Alcohol intake: current Alcohol intake frequency: does not drink Patient Tobacco Use Status: Current someday Tobacco user Tobacco use type: Cigar Years Smoked: 30 +/- only smokes cigars once in a blue Physical Exam Vital Signs: Last Vital Signs Pulse 78 01/01/24 10:07 BP 122/70 01/01/24 10:07 Pulse Ox 96 01/01/24 10:07 Oxygen Delivery Method Room Air 01/01/24 10:07 BMI result Body Mass Index 26.4 Const General: comfortable; No acute distress Orientation/consciousness: patient oriented x3 Eyes General: appearance normal, both eyes and all related structures Visual Hong: normal visual hong by confrontation Neck Neck: Yes supple and Yes no JVD Resp Effort & Inspection: normal respiratory effort and respiratory effort not decreased Auscultation: rhonchi Cardio Palpation: no palpable S3 and no palpable S4 Heart sounds: no rubs GI Inspection: Yes normal to inspection Palpation (GI): Soft to palpation Percussion: Yes normal to percussion Auscultation: normal bowel sounds General: Yes no CVA tenderness Back/Spine/Pelvis Back: no CVA tenderness Skin General skin exam: no petechiae and no purpura Neuro General: patient oriented x3 and no focal motor deficits Extrem General: No clubbing and No edema Results Reviewed Nephrology Results: Hgb 11.8 g/dl (12.0-16.0) L 12/29/23 WBC 9.0 X10*3/uL (4.8-10.8) 12/29/23 Plt Count 216 X10*3/uL (160-400) 12/29/23 Sodium 146 mmol/L (135-145) H 12/29/23 Potassium 3.4 mmol/L (3.3-5.1) 12/29/23 Chloride 110 mmol/L (96-108) H 12/29/23 Carbon Dioxide 25 mmol/L (22-29) 12/29/23 BUN 26 mg/dL (9-16) H 12/29/23 Creatinine 2.08 mg/dL (0.5-1.4) H 12/29/23 Calcium 9.5 mg/dL (8.4-10.2) 12/29/23 Phosphorus 3.9 mg/dL (2.7-4.5) 09/30/23 PTH Intact 94.9 pg/mL (8.7-77.1) H 12/29/23 Urine Protein 100 (2+) mg/dL (Neg-Trace) H 12/30/23 Assessment & Plan Assessment & Plan (1) CKD (chronic kidney disease) stage 3, GFR 30-59 ml/min: Code(s): N18.30 - Chronic kidney disease, stage 3 unspecified Category: Medical (2) MARY (acute kidney injury): Code(s): N17.9 - Acute kidney failure, unspecified Category: Medical (3) Hypercalcemia: Code(s): E83.52 - Hypercalcemia Category: Medical (4) Hypernatremia: Code(s): E87.0 - Hyperosmolality and hypernatremia Category: Medical (5) Hypokalemia: Code(s): E87.6 - Hypokalemia Category: Medical Plan Middle-aged woman with hypertension- acute kidney injury superimposed on chronic disease along with hypercalcemia. CT scan in the past revealed nonobstructive to renal calculi. s/p MARY Hypoperfusion from volume depletion secondary to use of Lasix- especially since she has hypernatremia and hypokalemia. Creatinine improved after stopping LASIX/Lisinopril Lasix has been added Cr has bumped up Will STOP LAsix Increase her to increase fluid intake. history of renal stones ; No obstructive uropathy She has also developed hypercalcemia. PTH is elevated and serum elec trophoresis is normal. Other serologies normal Keep Cinacalcet 30 mg Q D h/o Bilateral renal stones Repeat USG Orders: Orders Basic Metabolic Panel 2 Months Rylan Crouch MD E83.52 - Hypercalcemia, E87.0 - Hyperosmolality and hypernatremia, N18.30 - Chronic kidney disease, stage 3 unspecified Parathyroid Hormone Intact 2 Months Rylan Crouch MD E83.52 - Hypercalcemia, E87.0 - Hyperosmolality and hypernatremia, N18.30 - Chronic k idney disease, stage 3 unspecified Complete Blood Count Auto Diff 2 Months Rylan Crouch MD E83.52 - Hypercalcemia, E87.0 - Hyperosmolality and hypernatremia, N18.30 - Chronic kidney disease, stage 3 unspecified US renal BI 2 Months Rylan Crouch MD E83.52 - Hypercalcemia, E87.0 - Hyperosmolality and hypernatremia, I10 - Essential (primary) hypertension, N18.30 - Chronic kidney disease, stage 3 unspecified Medications: Changed From omeprazole 40 mg PO DAILY 30 caps 0RF To omeprazole 40 mg PO DAILY PRN Gasper Brennan MD Discontinued furosemide Discontinued Reason: Doctor's Order 20 mg PO DAILY 30 tabs 3RF Coding Level of Care Code Est Pt Level 4 (34306) Diagnoses CKD (chronic kidney disease) stage 3, GFR 30-59 ml/min N18.30 MARY (acute kidney injury) N17.9 Hypercalcemia E83.52 Hypernatremia E87.0 Hypokalemia E87.6
== END 2024-01-01 10:26 | disposition home or self-care (01) ==
PROVIDERS: PCP Internal Medicine; Visit Provider Internal Medicine Hypertension Specialist
DX: N18.30 Chronic kidney disease, stage 3 unspecified (principal); N17.9 Acute kidney failure, unspecified; E83.52 Hypercalcemia; E87.0 Hyperosmolality and hypernatremia; E87.6 Hypokalemia
CPT/HCPCS: 99214

== ENCOUNTER → 2024-01-01 10:07 | Outpatient (BNVA) | payer OTHER, SELFPAY | PROVIDERS: PCP Internal Medicine; Visit Provider Internal Medicine Hypertension Specialist | DX: I12.9 Hypertensive chronic kidney disease with stage 1 through stage 4 chronic kidney disease, or unspecified chronic kidney disease (principal); N18.30 Chronic kidney disease, stage 3 unspecified; N17.9 Acute kidney failure, unspecified; E83.52 Hypercalcemia; E87.0 Hyperosmolality and hypernatremia; E87.6 Hypokalemia | CPT/HCPCS: 99212 ==

== ENCOUNTER 2024-01-12 09:11 | Outpatient (REF) | payer OTHER, SELFPAY ==
[2024-01-12 10:43] LABS: Alanine Aminotransferase 19 U/L (0-31); Albumin Level 4.3 g/dL (3.5-5.0); Alkaline Phosphatase 108 U/L (39-117); Anion Gap 14 (12-20); Aspartate Amino Transferase 20 U/L (5-31); Bilirubin Total 0.6 mg/dL (0.0-1.0); Blood Urea Nitrogen 20 mg/dL (9-16); Calcium 9.5 mg/dL (8.4-10.2); Carbon Dioxide 27 mmol/L (22-29); Chloride 107 mmol/L (96-108); Estimated Glomerular Filt Rate 44; Glucose Random 105 mg/dL (60-115); Potassium 3.6 mmol/L (3.3-5.1); Sodium 144 mmol/L (135-145); Total Protein 7.4 g/dL (6.5-8.0)
== END 2024-01-12 09:12 | disposition home or self-care (01) ==
LOC: HO.LAB 09:11
PROVIDERS: PCP Internal Medicine; Visit Provider Internal Medicine
DX: I12.9 Hypertensive chronic kidney disease with stage 1 through stage 4 chronic kidney disease, or unspecified chronic kidney disease (principal); F17.211 Nicotine dependence, cigarettes, in remission; E83.52 Hypercalcemia; E78.00 Pure hypercholesterolemia, unspecified
CPT/HCPCS: 36415; 80053

== ENCOUNTER 2024-01-26 07:55 | Outpatient (REF) | payer OTHER, SELFPAY ==
--- NOTE | ~2024-01-26 | US_ITS ---
EXAMINATION: US RETROPERITONEAL LIMITED (RENAL ONLY) CLINICAL INFORMATION: Essential (primary) hypertension. COMPARISON: CT abdomen and pelvis 05/03/2022. Renal ultrasound 10/16/2021 and 01/04/2021. TECHNIQUE: Real-time imaging of the kidneys. FINDINGS: RIGHT KIDNEY: 10.3 x 5.3 x 5.4 cm (SAG x AP x TRV). The kidney is normal in size, contour, and echogenicity. Renal cortical thickness is normal. No hydronephrosis. Multiple benign-appearing cysts, some demonstrating peripheral calcifications and/or layering milk of calcium, largest measuring 1.4 cm in the lower pole. Multiple nonobstructive calculi largest measuring 0.8 cm in the midpole. LEFT KIDNEY: 9.2 x 6.2 x 4.6 cm (SAG x AP x TRV). The kidney is normal in size, contour, and echogenicity. Renal cortical thickness is normal. No hydronephrosis. Multiple benign appearing cysts, some demonstrating peripheral calcifications and/or layering milk of calcium, largest measuring 1.5 cm in the mid pole and upper pole. Multiple nonobstructive calculi largest measuring 0.8 cm in the lower pole. US/US renal BI IMPRESSION: 1. Multiple bilateral nonobstructive renal calculi. 2. Multiple benign-appearing bilateral renal cysts, some of which demonstrate peripheral calcifications and/or layering milk of calcium. Follow-up as clinically warranted. Electronically signed by: Rosa Mckeon MD 01/26/2024 11:24 AM EDT
== END 2024-01-26 07:56 | disposition home or self-care (01) ==
LOC: HO.US 07:55
PROVIDERS: PCP Internal Medicine; Visit Provider Internal Medicine Hypertension Specialist
DX: I12.9 Hypertensive chronic kidney disease with stage 1 through stage 4 chronic kidney disease, or unspecified chronic kidney disease (principal); N18.30 Chronic kidney disease, stage 3 unspecified; E87.0 Hyperosmolality and hypernatremia; E83.52 Hypercalcemia
CPT/HCPCS: 76775

== ENCOUNTER 2024-04-16 09:21 | Outpatient (REF) | payer OTHER, SELFPAY ==
[2024-04-16 09:39] LABS: MANUAL DIFF FLAG NO
[2024-04-16 10:44] LABS: Basophils Absolute Auto 0.1 X10*3/uL (0.0-0.2); Basophils Percent Auto 0.8 % (0-2); Eosinophils Absolute Auto 0.2 X10*3/uL (0.0-0.4); Eosinophils Percent Auto 2.4 % (0-4); Hematocrit 37.3 % (37.0-47.0); Hemoglobin 12.8 g/dl (12.0-16.0); Imm Gran Abs Auto 0.04 X10*3/uL (0.00-0.03); Imm Gran Pct Auto 0.5 % (0.0-0.4); Lymphocytes Absolute Auto 2.6 X10*3/uL (1.2-4.9); Lymphocytes Percent Auto 33.6 % (20-40); Mean Corpuscular HGB Conc 34.3 g/dl (31.0-35.0); Mean Corpuscular Hemoglobin 29.6 pg (27.0-33.0); Mean Corpuscular Volume 86.1 fL (80.0-98.0); Monocytes Absolute Auto 0.6 X10*3/uL (0.1-1.2); Monocytes Percent Auto 7.5 % (2-11); Neutrophils Absolute Auto 4.2 x10*3/uL (2.0-8.3); Neutrophils Percent Auto 55.2 % (45-73); Platelet Count 248 X10*3/uL (160-400); Red Blood Count 4.33 X10*6/uL (4.20-5.50); Red Cell Distribution Width 14.1 % (11.0-16.0); White Blood Count 7.7 X10*3/uL (4.8-10.8)
[2024-04-16 11:30] LABS: Alanine Aminotransferase 21 U/L (0-31); Albumin Level 3.9 g/dL (3.5-5.0); Alkaline Phosphatase 107 U/L (39-117); Anion Gap 9 (12-20); Aspartate Amino Transferase 21 U/L (5-31); Bilirubin Total 0.5 mg/dL (0.0-1.0); Blood Urea Nitrogen 25 mg/dL (9-16); Calcium 8.8 mg/dL (8.4-10.2); Carbon Dioxide 24 mmol/L (22-29); Chloride 115 mmol/L (96-108); Cholesterol 257 mg/dL (<200); Estimated Glomerular Filt Rate 38; Glucose Random 91 mg/dL (60-115); HDL Cholesterol 40 mg/dL (>40); LDL Cholesterol Calculated 140 mg/dL (<100); Potassium 3.5 mmol/L (3.3-5.1); Sodium 144 mmol/L (135-145); Total Protein 7.4 g/dL (6.5-8.0); Triglycerides 388 mg/dL (<150)
== END 2024-04-16 09:22 | disposition home or self-care (01) ==
LOC: HO.LAB 09:21
PROVIDERS: Absent Provider Internal Medicine Hypertension Specialist; PCP Internal Medicine; Visit Provider Internal Medicine
DX: E78.00 Pure hypercholesterolemia, unspecified (principal); E83.52 Hypercalcemia; F17.211 Nicotine dependence, cigarettes, in remission; I12.9 Hypertensive chronic kidney disease with stage 1 through stage 4 chronic kidney disease, or unspecified chronic kidney disease; T79.9XXS Unspecified early complication of trauma, sequela
CPT/HCPCS: 36415; 80053; 80061; 83970; 85025

== ENCOUNTER 2024-04-22 11:16 | Outpatient (AMB) | payer OTHER, SELFPAY ==
[2024-04-22 11:25] VITALS: BP 130/80; PULSE 85; O2SAT 96; BMI 26.2
--- NOTE | 2024-04-22 11:25 | HO.NEPHOV ---
Vital Signs 04/22/24 11:25 Height 5 ft 3 in Weight 148 lb BMI 26.2 BP 130/80 Blood Pressure Location Lt brachial Position Sitting Pulse 85 Pulse Source Pulse Oximeter Pulse Oximetry (%) 96 Oxygen Delivery Method Room Air Intake Visit Reasons: MARY-Conf Dynamometer Tester Engine Required: Yes Dynamometer Tester Engine Name: Basia [id number] Accompanied by: Spouse Allergies Tramadol Adverse Reaction (Mild, Uncoded 12/29/23 17:37) heart racing Medication List - Last Reconciled 04/22/24 by Rylan Crouch MD amlodipine 5 mg PO DAILY cinacalcet 30 mg PO DAILY clonazepam 0.5 mg PO DAILY omeprazole 40 mg PO DAILY PRN prazosin 2 mg PO BEDTIME quetiapine 100 mg PO BEDTIME rosuvastatin 40 mg PO DAILY sertraline 100 mg PO BID HPI Comments Details: Middle-aged woman with history of hypertension and stage III chronic disease. Her baseline serum creatinine from 1.2 mg/dL. She had a kidney biopsy back in 2020 which showed acute tubular injury with mild interstitial nephritis. 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 She was in [place] last month. At that time she was found to have hypercalcemia with a calcium 11.0. She also sustained acute kidney injury with the creatinine bumping up to 1.44. Labs as of labs when 10/17/2022 revealed a creatinine 1.8 and she had mild hyper natremia with a sodium of 146 and mild hypokalemia. She is on Lasix 20 mg q.d.. She denies taking any NSAIDs or Garg inhibitors. She denies any urinary symptoms. Dynamometer Tester Engine service was used 03/18/23;Feels better ;Off Lasix 05/11/23; [place]cently went to [place]; Had leg edema and visited ER. No dyspnea; No further edema 06/03/23: No new issues besides feeling tired No edema 01/01/24 REcently went to [place] Had back pain x 1 month Went to ER No NSAIDS NO imaging recently In 2022, CT showed multiple stones. [facility] Medical History Hypercholesteremia Depression Hypertension Surgical History H/O arthroscopy of right knee (11/18/19) Hx of tubal ligation Family History Mother HTN (hypertension) Social History Alcohol intake: current Alcohol intake frequency: does not drink Patient Tobacco Use Status: Current someday Tobacco user Tobacco use type: Cigar Years Smoked: 30 +/- only smokes cigars once in a blue Physical Exam Vital Signs: Last Vital Signs Pulse 85 04/22/24 11:25 Pulse Ox 96 04/22/24 11:25 Oxygen Delivery Method Room Air 04/22/24 11:25 BMI result Body Mass Index 26.2 Results Reviewed Results Reviewed: Dec 2023 US/US renal BI IMPRESSION: 1. Multiple bilateral nonobstructive renal calculi. 2. Multiple benign-appearing bilateral renal cysts, some of which demonstrate peripheral calcifications and/or layering milk of calcium. Follow-up as clinically warranted. Nephrology Results: Hgb 12.8 g/dl (12.0-16.0) 04/16/24 WBC 7.7 X10*3/uL (4.8-10.8) 04/16/24 Plt Count 248 X10*3/uL (160-400) 04/16/24 Sodium 144 mmol/L (135-145) 04/16/24 Potassium 3.5 mmol/L (3.3-5.1) 04/16/24 Chloride 115 mmol/L (96-108) H 04/16/24 Carbon Dioxide 24 mmol/L (22-29) 04/16/24 BUN 25 mg/dL (9-16) H 04/16/24 Creatinine 1.42 mg/dL (0.5-1.4) H 04/16/24 Calcium 8.8 mg/dL (8.4-10.2) 04/16/24 Phosphorus 3.9 mg/dL (2.7-4.5) 09/30/23 PTH Intact 74.0 pg/mL (8.7-77.1) 04/16/24 Urine Protein 100 (2+) mg/dL (Neg-Trace) H 12/30/23 Renal US 01/26/24 Assessment & Plan Assessment & Plan (1) CKD (chronic kidney disease) stage 3, GFR 30-59 ml/min: Code(s): N18.30 - Chronic kidney disease, stage 3 unspecified Category: Medical (2) MARY (acute kidney injury): Code(s): N17.9 - Acute kidney failure, unspecified Category: Medical (3) Hypercalcemia: Code(s): E83.52 - Hypercalcemia Category: Medical (4) Hypernatremia: Code(s): E87.0 - Hyperosmolality and hypernatremia Category: Medical (5) Hypokalemia: Code(s): E87.6 - Hypokalemia Category: Medical Plan Middle-aged woman with hypertension- acute kidney injury superimposed on chronic disease along with hypercalcemia. CT scan in the past revealed nonobstructive to renal calculi. s/p MARY Hypoperfusion from volume depletion secondary to use of Lasix- especially since she has hypernatremia and hypokalemia. Creatinine improved after stopping LASIX/Lisinopril Lasix has been added Cr has bumped up again STOPPED Lasix and cr improved. Increase her to increase fluid intake. history of renal stones ; No obstructive uropathy She has also developed hypercalcemia. PTH is elevated and serum electrophoresis is normal. Other serologies normal Keep Cinacalcet 30 mg Q D h/o Bilateral renal stones Repeat USG did not reveal obstruction Coding Level of Care Code Est Pt Level 4 (93452) Diagnoses CKD (chronic kidney disease) stage 3, GFR 30-59 ml/min N18.30 MARY (acute kidney injury) N17.9 Hypercalcemia E83.52 Hypernatremia E87.0 Hypokalemia E87.6
== END 2024-04-22 11:43 | disposition home or self-care (01) ==
PROVIDERS: PCP Internal Medicine; Visit Provider Internal Medicine Hypertension Specialist
DX: N18.30 Chronic kidney disease, stage 3 unspecified (principal); N17.9 Acute kidney failure, unspecified; E83.52 Hypercalcemia; E87.0 Hyperosmolality and hypernatremia; E87.6 Hypokalemia
CPT/HCPCS: 99214

== ENCOUNTER → 2024-04-22 11:16 | Outpatient (BNVA) | payer OTHER, SELFPAY | PROVIDERS: PCP Internal Medicine; Visit Provider Internal Medicine Hypertension Specialist | DX: I12.9 Hypertensive chronic kidney disease with stage 1 through stage 4 chronic kidney disease, or unspecified chronic kidney disease (principal); N18.30 Chronic kidney disease, stage 3 unspecified; N17.9 Acute kidney failure, unspecified; E83.52 Hypercalcemia; E87.0 Hyperosmolality and hypernatremia; E87.6 Hypokalemia | CPT/HCPCS: 99212 ==

== ENCOUNTER → 2024-05-07 09:33 | Outpatient (AMB) | payer OTHER, SELFPAY ==
--- NOTE | 2024-05-07 08:03 | A.OFFVIS_ITS ---
Intake Visit Reasons: Former Smoker Allergies Tramadol Adverse Reaction (Mild, Uncoded 12/29/23 17:37) heart racing HPI HPI Former Smoker: Details: Initial visit for this 63yo former smoker with a 20PYH. Patient started smoking at age 22 for 39 years at 1/2+ppd. She quit smoking 2 years ago - occasionally has a cigar. . Denies marijuana use. Denies second hand smoke exposure. Denies exposure to chemicals or substances like asbestos. . Denies known family history of lung cancer. Denies personal history of cancers. Denies chest CT in last year. . Denies recent travel outside the [place]. Denies recent respiratory illness or recent hospitalization for respiratory issues. Denies testing positive for COVID. Admits receiving COVID Vaccine. . Denies fever, chills, new/worsening cough, hemoptysis, hoarseness or dysphagia. Denies significant chest pain, significant dyspnea or unintentional weight loss. Patient Lung Cancer Screening Questionnaire reviewed with patient by provider. . Shared Decision Making Completed. Patient meets criteria. Discussed in detail with patient, the risk vs benefit of LDCT screening. Patient consents to proceed with scan. Discussed and encouraged continued smoking cessation. [facility] Medical History (Updated 05/07/24 @ 10:02 by Darcy Maddox PA-C) Hypertension Other and unspecified hyperlipidemia Osteoporosis Depression Personal history of nicotine dependence Surgical History (Updated 04/22/24 @ 12:36 by Darcy Maddox PA-C) History of tubal ligation History of surgical removal of ganglion cyst History of right knee surgery Family History Mother HTN (hypertension) Social History (Updated 05/07/24 @ 10:02 by Darcy Maddox PA-C) Alcohol intake: current Alcohol intake frequency: does not drink Patient Tobacco Use Status: Former Tobacco user Years Smoked: (onset 22yo, 1/2+ppd x 39yrs, 20pyh, occasional cigar now) Assessment & Plan Assessment & Plan (1) Personal history of nicotine dependence: Comment: (former smoker, onset 22yo, 1/2+ppd x 39yrs, 20pyh, occasional cigar now) Code(s): Z87.891 - Personal history of nicotine dependence Category: Medical Plan: - SDM visit completed today in office. - Patient meets criteria for LDCT for lung cancer screening purposes and is asymptomatic. - Smoking cessation counseling offered. Patients can always call [phone]. - Will arrange for a LDCT scan of the chest for screening purposes at [facility]. - Risks, benefits, and alternatives were discussed in detail and the patient agrees to proceed. - Risks discussed include but are not limited to: radiation exposure, anxiety during testing and while awaiting results, false negatives, false positives and possibility of additional intervention such as further imaging or surgical procedures for benign disease. - Benefits are obviously detection of lung cancer at an early stage which can lead to improved outcomes. - Discussed the importance of screening program compliance with adherence to yearly LDCT scan as scheduled - or sooner interval scans for personalized screening regimen. - Discussed follow up plan. Our office will send a letter discussing results and if needed set up phone call and office visit based on CT findings. - Patient educated on results categorization and the management decisions for suspicious findings potentially found on the screening LDCT scan. Any patient with a Lung RADS score of 3 or 4 will be reviewed by a multidisciplinary team at [facility] to form a plan of action in regards to scan findings. - If further work up is warranted for a suspicious lung finding this will be followed by the Lung Cancer Screening program in conjunction with the Thoracic Surgery Department at [facility]. - A copy of the office note and LDCT will be sent to the patient's PCP - as well as documentation on any associated further plans of care. - Incidental findings on LDCT are the PCP's responsibility. These findings are indicated with an S finding on the LDCT Assessment. A note discussing the findings will be sent to the PCP who is then responsible for further management. - All questions answered.? Coding Level of Care Code Lung Cancer Screening G0296 Diagnoses Personal history of nicotine dependence Z87.891
== END | disposition home or self-care (01) ==
PROVIDERS: PCP Internal Medicine; Visit Provider Physician Assistant Medical
CPT/HCPCS: G0296

== ENCOUNTER 2024-05-07 10:07 | Outpatient (REF) | payer OTHER, SELFPAY | END 2024-05-07 10:08 | disposition home or self-care (01) | LOC: HO.CT 10:07 | PROVIDERS: PCP Internal Medicine; Visit Provider Physician Assistant Medical | DX: Z12.2 Encounter for screening for malignant neoplasm of respiratory organs (principal); Z87.891 Personal history of nicotine dependence | CPT/HCPCS: G0296 ==

== ENCOUNTER → 2024-05-07 10:09 | Outpatient (BNV) | payer OTHER, SELFPAY | PROVIDERS: PCP Internal Medicine; Visit Provider Specialist | DX: Z87.891 Personal history of nicotine dependence (principal) | CPT/HCPCS: 71271 ==

== ENCOUNTER 2024-07-06 09:42 | Outpatient (REF) | payer OTHER, SELFPAY ==
[2024-07-06 10:07] LABS: MANUAL DIFF FLAG NO
[2024-07-06 10:33] LABS: Basophils Absolute Auto 0.1 X10*3/uL (0.0-0.2); Basophils Percent Auto 0.8 % (0-2); Eosinophils Absolute Auto 0.2 X10*3/uL (0.0-0.4); Eosinophils Percent Auto 1.7 % (0-4); Hematocrit 40.6 % (37.0-47.0); Hemoglobin 13.5 g/dl (12.0-16.0); Imm Gran Abs Auto 0.03 X10*3/uL (0.00-0.03); Imm Gran Pct Auto 0.3 % (0.0-0.4); Lymphocytes Absolute Auto 2.6 X10*3/uL (1.2-4.9); Lymphocytes Percent Auto 30.5 % (20-40); Mean Corpuscular HGB Conc 33.3 g/dl (31.0-35.0); Mean Corpuscular Hemoglobin 29.4 pg (27.0-33.0); Mean Corpuscular Volume 88.5 fL (80.0-98.0); Mean Platelet Volume 10.8 fL (9.4-12.3); Monocytes Absolute Auto 0.7 X10*3/uL (0.1-1.2); Neutrophils Percent Auto 58.7 % (45-73); Platelet Count 239 X10*3/uL (160-400); Red Blood Count 4.59 X10*6/uL (4.20-5.50); Red Cell Distribution Width 13.6 % (11.0-16.0); White Blood Count 8.6 X10*3/uL (4.8-10.8)
[2024-07-06 10:35] LABS: Appearance Urine Cloudy; Color Urine Yellow; Glucose Urine UA Negative (Negative); Leukocyte Esterase Urine Moderate (2+) (Negative); Nitrite Urine Negative (Negative); Specific Gravity - Urine 1.015 (1.005-1.025); UMIC TRIGGER UA YES; Urine Blood Small (1+) (Negative); Urine Ketones Negative (Negative); Urine Protein 300 (3+) mg/dL (Neg-Trace)
[2024-07-06 10:43] LABS: Bacteria Urine 1+ (None Seen); Hyaline Casts Urine 0-2 /LPF (0-2); RBC Urine 0-2 /HPF (0-2); WBC Urine 21-50 /HPF (0-5)
--- OUTSIDE RECORDS SUMMARY | 2024-07-06 11:07 | XMS_ITS | Clinical Summary ---
Author Organization [facility] Address [address] [place] [address] Phone Care Team Providers Care Electronics Warfare Technician Name Role Phone Chanel Duarte MD Primary Care Provider Allergies No known active allergies Medications amLODIPine (NORVASC) 5 MG tablet Take 5 mg by mouth 1 (one) time each day Active atorvastatin (LIPITOR) 80 MG tablet Take 1 tablet by mouth 1 (one) time each day Active clonazePAM (KlonoPIN) 0.5 MG tablet Take 1 tablet by mouth 2 (two) times a day Active omeprazole (PriLOSEC) [address] capsule Take 20 mg by mouth 1 (one) time each day Active prazosin (MINIPRESS) 2 MG capsule Take 1 capsule by mouth 1 (one) time each day Active QUEtiapine (SEROquel) 100 MG tablet Take 1 tablet by mouth 1 (one) time each day Active sertraline (ZOLOFT) 100 MG tablet Take 1 tablet by mouth 1 (one) time each day Active chlorhexidine (PERIDEX) 0.12 % solution 1 Active acetaminophen (TYLENOL) 500 MG tablet Take by mouth every 6 (six) hours if needed for mild pain Active rosuvastatin (CRESTOR) 40 MG tablet TAKE 1 TABLET BY MOUTH ONCE DAILY STOP ATORVASTATIN 3 Active Stool Softener/Laxati ve 50-8.6 MG per tablet Take 2 tablets by mouth every night 3 Active furosemide (LASIX) 20 MG tablet Take 1 tablet by mouth once daily 30 tablet 3 Active Active Problems Problem Noted Date Diagnosed Date Arthritis 12/11/2020 Calculus of kidney and ureter 12/11/2020 Essential hypertension 12/11/2020 Proteinuria 12/11/2020 Resolved Problems Problem Noted Date Diagnosed Date Resolved Date Adenoma 12/11/2020 12/18/2020 Hypercholesterolemia 12/11/2020 021 Family History Medical History Relation Comments Hypertension Father Heart disease Mother Hypertension Mother Kidney disease Mother Hypertension Sibling Relation Status Comments Father Unknown Mother Unknown Sibling Social History Tobacco Use Types Packs/Day Years Used Date Smoking Tobacco: Every Day Cigarettes Cigars Smokeless Tobacco: Current Tobacco Cessation:Ready to Q uit: Not Asked; Counseling Given: Not Answered Alcohol Use Standard Drinks/Week Comments No 0 (1 standard drink = 0.6 oz pur e alcohol) Comments Unknown Sex and Gender Information Value Date Recorded Sex Assigned at Not on file Legal Sex Female 4:50 PM EST Gender Identity Not on file Sexual Orientation Not on file Last Filed Vital Signs Vital Sign Reading Time Taken Comments Blood Pressure 127/65 11/18/2022 3:37 PM EDT Pulse 74 11/18/2022 3:37 PM EDT Temperature - - Respiratory Rate - - Oxygen Saturation 96% 11/18/2022 3:37 PM EDT Inhaled Oxygen Concentration - - Weight 62.7 kg (138 lb 3.2 oz) 11/18/2022 3:37 P M EDT Height 160 cm (5' 3 ) 07/22/2022 2:39 PM EDT Body Mass Index 24.48 07/22/2022 2:39 PM EDT Plan of Treatment Health Maintenance Due Date Last Done Comments Breast Cancer Screening 1960 Pneumococcal Vaccine: Pediat rics (0 to 5 Years) and At-Risk Patients (6 to 64 Years) (1 of 2 - PCV) 1968 Colorectal Cancer Screening: Annual FOBT 08/13/2011 Colorectal Cancer Screening: Colonoscopy 08/13/2011 Colorectal Cancer Screening: Sigmoidoscopy 08/13/2011 Influenza Vaccine (Season Ended) 2024 Hepatitis B Vaccine Aged Out No longe r eligible based on patient's age to complete this topic Insurance [facility] ([id number]) ([id number]) Care Teams Electronics Warfare Technician Relationship Specialty Start Date End Date Chanel Duarte MD [facility] [address] PCP - General 04/10/20
[2024-07-06 11:12] LABS: Creatinine Urine 85.81 mg/dL; Total Protein Urine Random 133 mg/dL (<12)
[2024-07-06 11:17] LABS: Parathyroid Hormone Intact 120.5 pg/mL (8.7-77.1)
[2024-07-06 11:20] LABS: Blood Urea Nitrogen 26 mg/dL (9-16); Calcium 10.1 mg/dL (8.4-10.2)
[2024-07-06 11:23] LABS: Alanine Aminotransferase 19 U/L (0-31); Albumin Level 4.3 g/dL (3.5-5.0); Anion Gap 10 (12-20); Aspartate Amino Transferase 22 U/L (5-31); Bilirubin Total 0.4 mg/dL (0.0-1.0); Blood Urea Nitrogen 25 mg/dL (9-16); Calcium 10.1 mg/dL (8.4-10.2); Carbon Dioxide 26 mmol/L (22-29); Chloride 113 mmol/L (96-108); Cholesterol 146 mg/dL (<200); Estimated Glomerular Filt Rate 39; Glucose Random 100 mg/dL (60-115); HDL Cholesterol 38 mg/dL (>40); LDL Cholesterol Calculated 70 mg/dL (<100); Potassium 4.2 mmol/L (3.3-5.1); Sodium 145 mmol/L (135-145); Total Protein 7.4 g/dL (6.5-8.0); Triglycerides 192 mg/dL (<150)
[2024-07-06 11:54] LABS: Alkaline Phosphatase 116 U/L (39-117)
== END 2024-07-06 09:43 | disposition home or self-care (01) ==
LOC: HO.LAB 09:42
PROVIDERS: Absent Provider Internal Medicine; PCP Internal Medicine; Visit Provider Internal Medicine Hypertension Specialist
DX: E78.00 Pure hypercholesterolemia, unspecified (principal); E83.52 Hypercalcemia; F17.201 Nicotine dependence, unspecified, in remission; E87.0 Hyperosmolality and hypernatremia; N18.30 Chronic kidney disease, stage 3 unspecified; N17.9 Acute kidney failure, unspecified
CPT/HCPCS: 36415; 80053; 80061; 81001; 82310; 82570; 83970; 84156; 84300; 84520; 85025

== ENCOUNTER 2024-07-14 10:57 | Outpatient (AMB) | payer OTHER, SELFPAY ==
--- NOTE | 2024-07-14 10:55 | HO.NEPHOV_ITS ---
Vital Signs 07/14/24 10:56 Height 5 ft 3 in Weight 146 lb BMI 25.9 BP 122/64 Blood Pressure Location Lt brachial Position Sitting Pulse 80 Pulse Source Pulse Oximeter Pulse Oximetry (%) 98 Oxygen Delivery Method Room Air Intake Visit Reasons: MARY/ Conf Manager File Name: [id number] Allergies Tramadol Adverse Reaction (Mild, Uncoded 07/14/24 11:01) heart racing Medication List - Last Reconciled 07/14/24 by Rylan Crouch MD amlodipine 5 mg PO DAILY cinacalcet 30 mg PO DAILY clonazepam 0.5 mg PO DAILY prazosin 2 mg PO BEDTIME quetiapine 100 mg PO BEDTIME rosuvastatin 40 mg PO DAILY sertraline 100 mg PO BID HPI Comments Details: Middle-aged woman with history of hypertension and stage III chronic disease. Her baseline serum creatinine from 1.2 mg/dL. She had a kidney biopsy back in 2020 which showed acute tubular injury with mild interstitial nephritis. 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 She was in [place] last month. At that time she was found to have hypercalcemia with a calcium 11.0. She also sustained acute kidney injury with the creatinine bumping up to 1.44. Labs as of labs when 10/17/2022 revealed a creatinine 1.8 and she had mild hyper natremia with a sodium of 146 and mild hypokalemia. She is on Lasix 20 mg q.d.. She denies taking any NSAIDs or Garg inhibitors. She denies any urinary symptoms. Manager File service was used 03/18/23;Feels better ;Off Lasix 05/11/23; REcently went to [place]; Had leg edema and visited ER. No dyspnea; No further edema 06/03/23: No new issues besides feeling tired No edema 01/01/24 REcently went to [place] Had back pain x 1 month Went to ER No NSAIDS NO imaging recently In 2022, CT showed multiple stones. [facility] Medical History Hypertension Other and unspecified hyperlipidemia Osteoporosis Depression Personal history of nicotine dependence Surgical History History of tubal ligation History of surgical removal of ganglion cyst History of right knee surgery Family History Mother HTN (hypertension) Social History Alcohol intake: current Alcohol intake frequency: does not drink Patient Tobacco Use Status: Former Tobacco user Years Smoked: (onset 22yo, 1/2+ppd x 39yrs, 20pyh, occasional cigar now) Physical Exam Vital Signs: Last Vital Signs Pulse 80 07/14/24 10:56 BP 122/64 07/14/24 10:56 Pulse Ox 98 07/14/24 10:56 Oxygen Delivery Method Room Air 07/14/24 10:56 BMI result Body Mass Index 25.9 Const General: comfortable; No acute distress Orientation/consciousness: patient oriented x3 Eyes General: appearance normal, both eyes and all related structures Visual Hong: normal visual hong by confrontation Neck Neck: Yes supple and Yes no JVD Resp Effort & Inspection: normal respiratory effort and respiratory effort not decreased Auscultation: rhonchi Cardio Palpation: no palpable S3 and no palpable S4 Heart sounds: no rubs GI Inspection: Yes normal to inspection Palpation (GI): Soft to palpation Percussion: Yes normal to percussion Auscultation: normal bowel sounds General: Yes no CVA tenderness Back/Spine/Pelvis Back: no CVA tenderness Skin General skin exam: no petechiae and no purpura Neuro General: patient oriented x3 and no focal motor deficits Extrem General: No clubbing and No edema Results Reviewed Nephrology Results: Hgb 13.5 g/dl (12.0-16.0) 07/06/24 WBC 8.6 X10*3/uL (4.8-10.8) 07/06/24 Plt Count 239 X10*3/uL (160-400) 07/06/24 Sodium 145 mmol/L (135-145) 07/06/24 Potassium 4.2 mmol/L (3.3-5.1) 07/06/24 Chloride 113 mmol/L (96-108) H 07/06/24 Carbon Dioxide 26 mmol/L (22-29) 07/06/24 BUN 25 mg/dL (9-16) H 07/06/24 Creatinine 1.39 mg/dL (0.5-1.4) 07/06/24 Calcium 10.1 mg/dL (8.4-10.2) 07/06/24 PTH Intact 120.5 pg/mL (8.7-77.1) H 07/06/24 Urine Protein 300 (3+) mg/dL (Neg-Trace) H 07/06/24 Urine Creatinine 85.81 mg/dL 07/06/24 Renal US 01/26/24 Assessment & Plan Assessment & Plan (1) CKD (chronic kidney disease) stage 3, GFR 30-59 ml/min: Code(s): N18.30 - Chronic kidney disease, stage 3 unspecified Category: Medical (2) MARY (acute kidney injury): Code(s): N17.9 - Acute kidney failure, unspecified Category: Medical (3) Hypercalcemia: Code(s): E83.52 - Hypercalcemia Category: Medical (4) Hypernatremia: Code(s): E87.0 - Hyperosmolality and hypernatremia Category: Medical (5) Hypokalemia: Code(s): E87.6 - Hypokalemia Category: Medical Plan Middle-aged woman with hypertension- acute kidney injury superimposed on chronic disease along with hypercalcemia. CT scan in the past revealed nonobstructive to renal calculi. s/p MARY Hypoperfusion from volume depletion secondary to use of Lasix- especially since she has hypernatremia and hypokalemia. Creatinine improved after stopping LASIX/Lisinopril Lasix has been added Cr has bumped up again STOPPED Lasix and cr improved. Increase her to increase fluid intake. history of renal stones ; No obstructive uropathy She has also developed hypercalcemia. PTH is elevated and serum electrophoresis is normal. Other serologies normal Keep Cinacalcet 30 mg Q D h/o Bilateral renal stones Repeat USG did not reveal obstruction Orders: Orders Basic Metabolic Panel 6 Months E83.52 - Hypercalcemia, N18.30 - Chronic kidney disease, stage 3 unspecified Total Protein Urine Random 6 Months E83.52 - Hypercalcemia, N18.30 - Chronic kidney disease, stage 3 unspecified UA and rflx microscopic 6 Months E83.52 - Hypercalcemia, N18.30 - Chronic kidney disease, stage 3 unspecified Creatinine Urine 6 Months E83.52 - Hypercalcemia, N18.30 - Chronic kidney disease, stage 3 unspecified Phosphorus 6 Months E83.52 - Hypercalcemia, N18.30 - Chronic kidney disease, stage 3 unspecified Parathyroid Hormone Intact 6 Months E83.52 - Hypercalcemia, N18.30 - Chronic kidney disease, stage 3 unspecified Coding Level of Care Code Est Pt Level 4 (45411) Diagnoses CKD (chronic kidney disease) stage 3, GFR 30-59 ml/min N18.30 MARY (acute kidney injury) N17.9 Hypercalcemia E83.52 Hypernatremia E87.0 Hypokalemia E87.6
[2024-07-14 10:56] VITALS: BP 122/64; PULSE 80; O2SAT 98; BMI 25.9
--- OUTSIDE RECORDS SUMMARY | 2024-07-14 13:05 | XMS_ITS | Clinical Summary ---
Author Organization [facility] Address [address] [place] [address] Phone Care Team Providers Care Six Pack Loader Operator Name Role Phone Chanel Duarte MD Primary [...] Comments Breast Cancer Screening 1960 Pneumococcal Vaccine: 50+ Ye ars (1 of 2 - PCV) 1981 Colorectal Cancer Screening: Annual FOBT 08/13/2011 Colorectal Cancer Screening: Colonoscopy 08/13/2011 Colorectal Cancer Screening: Sigmoidoscopy 08/13/2011 Influenza Vaccine (Season Ended) 2024 Hepatitis B Vaccine Aged Out No longe r eligible based on patient's age to complete this topic Insurance ([id number]) [place] [address] ([id number]) Care Teams Six Pack Loader Operator Relationship Specialty Start Date End Date Chanel Duarte MD [address] [place] [address] PCP - General 04/10/20
== END 2024-07-14 11:09 | disposition home or self-care (01) ==
LOC: HO.HKAS 10:58
PROVIDERS: PCP Internal Medicine; Visit Provider Internal Medicine Hypertension Specialist
DX: N18.30 Chronic kidney disease, stage 3 unspecified (principal); N17.9 Acute kidney failure, unspecified; E83.52 Hypercalcemia; E87.0 Hyperosmolality and hypernatremia; E87.6 Hypokalemia
CPT/HCPCS: 99214

== ENCOUNTER → 2024-07-14 10:57 | Outpatient (BNVA) | payer OTHER, SELFPAY | PROVIDERS: PCP Internal Medicine; Visit Provider Internal Medicine Hypertension Specialist | DX: N17.9 Acute kidney failure, unspecified (principal); N18.30 Chronic kidney disease, stage 3 unspecified; E83.52 Hypercalcemia; E87.0 Hyperosmolality and hypernatremia; E87.6 Hypokalemia | CPT/HCPCS: 99212 ==

== ENCOUNTER 2024-10-25 14:01 | Outpatient (AMB) | payer OTHER, SELFPAY ==
[2024-10-25 14:06] VITALS: BMI 25.9
--- NOTE | 2024-10-25 14:06 | MHC.OFFVIS ---
Vital Signs 10/25/24 14:06 Height 5 ft 3 in Weight 146 lb BMI 25.9 Intake Visit Reasons: OV-LT knee OA f/u Intake Note: Sisi is a 64 year old female who presents today for a follow up of her Left Knee OA. At he last visit in February of 2023 she was ordered a Lateral Unloading brace. Patient reports she is having ongoing pain, that radiate up to her hip. She states she wore the brace with no relief. Has tried topical cream, with minimal relief. Allergies Tramadol Adverse Reaction (Mild, Uncoded 07/14/24 11:01) heart racing HPI HPI OV-LT knee OA f/u: Details: Sisi is a 64 year old female who presents today for a follow up of her Left Knee OA. At he last visit in February of 2023 she was ordered a Lateral Unloading brace. Patient reports she is having ongoing pain, that radiate up to her hip. She states she wore the brace with no relief. Has tried topical cream, with minimal relief. She has valgus osteoarthritis of the left knee. She has a difficult time with basic activities. She has gait disturbance and while her pain is not always severe she does not feel like she is able to engage in daily activities without difficulty. [facility] Medical History Hypertension Other and unspecified hyperlipidemia Osteoporosis Depression Personal history of nicotine dependence Surgical History History of tubal ligation History of surgical removal of ganglion cyst History of right knee surgery Family History Mother HTN (hypertension) Social History Alcohol intake: current Alcohol intake frequency: does not drink Patient Tobacco Use Status: Former Tobacco user Years Smoked: (onset 22yo, 1/2+ppd x 39yrs, 20pyh, occasional cigar now) Physical Exam Vital Signs: BMI result Body Mass Index 25.9 Const General: no acute distress, alert and awake Orientation/consciousness: patient oriented x3 HEENT Head: Yes normocephalic and Yes atraumatic Eyes EOM: EOMs intact bilaterally Resp Effort & Inspection: normal respiratory effort and able to speak in complete sentences Cardio Jugular venous distension: no JVD Skin General skin exam: turgor normal Rashes: no rashes Neuro General: patient oriented x3 Extrem Other: lateral left knee ttp and valgus malalignment proximally 15 degrees. Psych Appearance: grossly normal Affect: normal affect Attitude: cooperative Results Reviewed Results Reviewed: I personally reviewed relevant radiographs. Severe osteoarthritis of the left knee lateral compartment Assessment & Plan Assessment & Plan (1) Arthritis of left knee: Code(s): M17.12 - Unilateral primary osteoarthritis, left knee Category: Medical Plan: This is a 64-year-old active woman with severe osteoarthritis of the left knee. She has a valgus deformity as well so ambulation is difficult for her. She feels like she can not walk extended distances in his difficulty being active. This is been ongoing for 2-3 years. Given her alignment and obvious difficulty with daily activities I discussed treatment options. We tried bracing but he has not been helpful. She has tried strengthening and activity modification and NSAIDs but nothing has helped her. I think injections are an option but they would be more for pain alleviation and it is not her primary issue. Her primary issue is difficulty with activity because of the valgus malalignment and her associated gait disturbance. Given this I think arthroplasty is reasonable. We had a long discussion regarding treatment options. Certainly nonoperative treatment is an option and this may or may not progress to worsen. The risks of surgery were discussed. Those include, but are not limited to, the risk of infection, need for further surgery, aseptic loosening, mechanical failure, injury to nerves, blood vessels, soft tissues. There is a risk of intraoperative and postoperative fracture. There are also medical risks associated with surgery including risk of pulmonary embolism, blood clots, pneumonia, organ dysfunction and/or failure. In addition I discussed the risks of stiffness and incomplete symptom resolution. Despite these risks she would like to proceed forward. We will begin the preoperative clearance process and I will contact our nurse navigator. I answered all the patient's questions to the best of my abilities. (2) Physiologic genu valgum of left knee: Code(s): M21.062 - Valgus deformity, not elsewhere classified, left knee Category: Medical Plan: Coding Level of Care Code Est Pt Level 4 (08431) Diagnoses Arthritis of left knee M17.12 Physiologic genu valgum of left knee M21.062
--- OUTSIDE RECORDS SUMMARY | 2024-10-25 14:45 | XMS_ITS | Clinical Summary ---
Author Organization [facility] Address [address] [place] [address] Phone Care Team Providers Care Automotive Designer Name Role Phone Chanel Duarte MD Primary [...] Colorectal Cancer Screening: Sigmoidoscopy 08/13/2011 Influenza Vaccine (#1) 2024 Hepatitis B Vaccine Aged Out No longe r eligible based on patient's age to complete this topic Insurance ([id number]) [place] [address] ([id number]) Care Teams Automotive Designer Relationship Specialty Start Date End Date Chanel Duarte MD [address] [place] [address] PCP - General 04/10/20
== END 2024-10-25 14:40 | disposition home or self-care (01) ==
LOC: HO.HOS 14:01
PROVIDERS: PCP Internal Medicine; Visit Provider Orthopaedic Surgery
DX: M17.12 Unilateral primary osteoarthritis, left knee (principal); M21.062 Valgus deformity, not elsewhere classified, left knee
CPT/HCPCS: 99214

== ENCOUNTER → 2024-10-25 14:01 | Outpatient (BNVA) | payer OTHER, SELFPAY | PROVIDERS: PCP Internal Medicine; Visit Provider Orthopaedic Surgery | DX: M17.12 Unilateral primary osteoarthritis, left knee (principal); M21.062 Valgus deformity, not elsewhere classified, left knee | CPT/HCPCS: 99212 ==

== ENCOUNTER 2024-12-28 09:30 | Outpatient (REF) | payer OTHER, SELFPAY ==
[2024-12-28 09:46] LABS: MANUAL DIFF FLAG NO
--- OUTSIDE RECORDS SUMMARY | 2024-12-28 10:21 | XMS_ITS | Clinical Summary ---
Author Organization [facility] Address [address] [place] [address] Phone Care Team Providers Care Area Sales Manager Name Role Phone Chanel Duarte MD Primary Care Provider [phone] Allergies No known active allergies Medications amLODIPine [...] age to complete this topic Insurance ([id number]) [place] [address] ([id number]) Care Teams Area Sales Manager Relationship Specialty Start Date End Date Chanel Duarte MD [address] [place] [address] PCP - General 04/10/20
[2024-12-28 10:33] LABS: Hematocrit 35.7 % (37.0-47.0); Hemoglobin 12.4 g/dl (12.0-16.0); Imm Gran Abs Auto 0.04 X10*3/uL (0.00-0.03); Imm Gran Pct Auto 0.4 % (0.0-0.4); Lymphocytes Absolute Auto 2.6 X10*3/uL (1.2-4.9); Mean Corpuscular HGB Conc 34.7 g/dl (31.0-35.0); Mean Corpuscular Hemoglobin 30.0 pg (27.0-33.0); Mean Corpuscular Volume 86.4 fL (80.0-98.0); NRBC Abs Auto 0.000 X10*3/uL (0.0-0.012); NRBC Pct Auto 0.0 /100WBC (0.0-0.2); Platelet Count 221 X10*3/uL (160-400); Red Blood Count 4.13 X10*6/uL (4.20-5.50); White Blood Count 8.9 X10*3/uL (4.8-10.8)
[2024-12-28 10:58] LABS: Alanine Aminotransferase 17 U/L (0-31); Albumin Level 4.4 g/dL (3.5-5.0); Alkaline Phosphatase 111 U/L (39-117); Anion Gap 10 (12-20); Aspartate Amino Transferase 21 U/L (5-31); Blood Urea Nitrogen 24 mg/dL (9-16); Calcium 9.2 mg/dL (8.4-10.2); Carbon Dioxide 27 mmol/L (22-29); Chloride 113 mmol/L (96-108); Estimated Glomerular Filt Rate 34; Potassium 3.8 mmol/L (3.3-5.1); Sodium 146 mmol/L (135-145); Total Protein 7.2 g/dL (6.5-8.0)
[2024-12-28 11:01] LABS: Parathyroid Hormone Intact 89.6 pg/mL (8.7-77.1)
== END 2024-12-28 09:31 | disposition home or self-care (01) ==
LOC: HO.LAB 09:30
PROVIDERS: PCP Internal Medicine; Visit Provider Internal Medicine
DX: M17.12 Unilateral primary osteoarthritis, left knee (principal); N18.9 Chronic kidney disease, unspecified; E78.00 Pure hypercholesterolemia, unspecified; E83.52 Hypercalcemia
CPT/HCPCS: 36415; 80053; 83970; 85025

== ENCOUNTER → 2024-12-31 08:44 | Outpatient (BNVA) | payer OTHER, SELFPAY | PROVIDERS: PCP Internal Medicine | DX: Z01.818 Encounter for other preprocedural examination (principal) ==

== ENCOUNTER → 2025-01-03 11:30 | Outpatient (BNV) | payer OTHER, SELFPAY | PROVIDERS: PCP Internal Medicine; Visit Provider Internal Medicine Cardiovascular Disease | DX: Z01.818 Encounter for other preprocedural examination (principal) | CPT/HCPCS: 93010 ==

== ENCOUNTER 2025-01-24 13:20 | Outpatient (REF) | payer OTHER, SELFPAY ==
--- NOTE | ~2025-01-24 | CT_ITS ---
EXAMINATION: CT KNEE WITHOUT CONTRAST, LEFT CLINICAL INFORMATION: Primary osteoarthritis. Biometric protocol COMPARISON: None available. TECHNIQUE: Axial imaging of the left lower extremity. Reconstructions obtained at the workstation. This CT examination was performed using dose optimization techniques as appropriate, variously including the following: *Automated exposure control *Adjustment of mA and/or kV according to patient size (this includes techniques or standardized protocols for targeted exams where dose is matched to indication/reason for exam; i.e. extremities or head) *Use of iterative reconstruction technique Dose: 3 77 mgy FINDINGS: Limited preoperative planning study. Hip: Minimal hip arthritis. Mild left SI joint arthritis. No significant hip joint effusion. No groin lymphadenopathy. Sigmoid diverticulosis. Knee: Moderate-severe lateral compartment arthritis. Arthritis to a lesser degree in the medial compartment. No acute osseous findings. Small chronic sclerotic focus in the medial femoral condyle. Small effusion. Ankle: Tibiotalar dictation is maintained. No gross acute findings. CT/CT knee LT wo IV con IMPRESSION: Limited preoperative planning study. Knee: Moderate-severe lateral compartment arthritis. Additional findings as above. Electronically signed by: Zain Cope MD 01/24/2025 02:55 PM EDT RP
[2025-01-24 14:48] LABS: Anion Gap 12 (12-20); Blood Urea Nitrogen 24 mg/dL (9-16); Calcium 9.6 mg/dL (8.4-10.2); Carbon Dioxide 29 mmol/L (22-29); Chloride 110 mmol/L (96-108); Estimated Glomerular Filt Rate 37; Potassium 3.5 mmol/L (3.3-5.1); Sodium 147 mmol/L (135-145)
[2025-01-24 15:02] LABS: Parathyroid Hormone Intact 39.4 pg/mL (8.7-77.1)
[2025-01-24 15:30] LABS: Appearance Urine Clear; Glucose Urine UA Negative (Negative); PH 6.0 (5.0-9.0); Specific Gravity - Urine 1.010 (1.005-1.025); UMIC TRIGGER UA YES
[2025-01-24 16:07] LABS: Total Protein Urine Random 88 mg/dL (<12)
== END 2025-01-24 13:21 | disposition home or self-care (01) ==
LOC: HO.CT 13:20
PROVIDERS: Absent Provider Internal Medicine Hypertension Specialist; PCP Internal Medicine; Visit Provider Orthopaedic Surgery
DX: M21.062 Valgus deformity, not elsewhere classified, left knee (principal); M17.12 Unilateral primary osteoarthritis, left knee; N18.30 Chronic kidney disease, stage 3 unspecified; E83.52 Hypercalcemia
CPT/HCPCS: 36415; 73700; 80048; 81001; 81003; 82570; 83970; 84100; 84156

== ENCOUNTER → 2025-01-24 13:51 | Outpatient (BNV) | payer OTHER, SELFPAY | PROVIDERS: Absent Provider Internal Medicine Hypertension Specialist; PCP Internal Medicine; Visit Provider Radiology Diagnostic Ultrasound | DX: M17.12 Unilateral primary osteoarthritis, left knee (principal) | CPT/HCPCS: 73700 ==

== ENCOUNTER 2025-01-26 08:42 | Outpatient (AMB) | payer OTHER, SELFPAY ==
[2025-01-26 08:50] VITALS: BP 132/72; PULSE 70; O2SAT 97; BMI 26.6
--- NOTE | 2025-01-26 08:50 | HO.NEPHOV ---
Vital Signs 01/26/25 08:50 Height 5 ft 3 in Weight 150 lb BMI 26.6 BP 132/72 Blood Pressure Location Lt brachial Position Sitting Pulse 70 Pulse Source Pulse Oximeter Pulse Oximetry (%) 97 Oxygen Delivery Method Room Air Intake Visit Reasons: 6 mnts f/u appt confirmed Fence Erector Supervisor Required: Yes Accompanied by: Self / Same As Patient Allergies MARIALUISA Inhibitors Allergy (Verified 01/26/25 08:52) Unknown Tramadol Adverse Reaction (Mild, Uncoded 12/31/24 08:58) heart racing Medication List - Last Reconciled 01/26/25 by Rylan Crouch MD amlodipine 5 mg PO DAILY cinacalcet 30 mg PO DAILY clonazepam 0.5 mg PO BEDTIME [Folding Front Wheeled walker Duration: 99 days] omeprazole 20 mg PO DAILY prazosin 2 mg PO BEDTIME PRN quetiapine 100 mg PO BEDTIME PRN rosuvastatin 40 mg PO DAILY sertraline 100 mg PO DAILY PRN HPI Comments Details: Middle-aged woman with history of hypertension and stage III chronic disease. Her baseline serum creatinine from 1.2 mg/dL. She had a kidney biopsy back in 2020 which showed acute tubular injury with mild interstitial nephritis. 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 She was in [place] last month. At that time she was found to have hypercalcemia with a calcium 11.0. She also sustained acute kidney injury with the creatinine bumping up to 1.44. Labs as of labs when 10/17/2022 revealed a creatinine 1.8 and she had mild hyper natremia with a sodium of 146 and mild hypokalemia. She is on Lasix 20 mg q.d.. She denies taking any NSAIDs or Garg inhibitors. She denies any urinary symptoms. Fence Erector Supervisor service was used 03/18/23;Feels better ;Off Lasix 05/11/23; REcently went to [place]; Had leg edema and visited ER. No dyspnea; No further edema 06/03/23: No new issues besides feeling tired ;No edema 01/01/24 ;REcently went to [place] ;Had back pain x 1 month ;Went to ER ;No NSAIDS ;NO imaging recently ;In 2022, CT showed multiple stones. 01/26/25 - The patient is a 64-year-old female presenting with chronic kidney disease and nephrolithiasis. - Chronic Kidney Disease: Creatinine level around 1.4 mg/dL. Kidney biopsy in 2020 showed acute tubular injury and chronic vascular changes. - Nephrolithiasis: Hospitalized for kidney stones few weks ago, treated with morphine and fluids, ultrasound performed, stone not yet passed. Waiting for knee surgery on Feb 01 for severe OA [facility] Medical History (Updated 01/03/25 @ 10:21 by Donya Pineda RN) Back pain Anxiety Hard of hearing Depression Osteoarthritis Spinal stenosis Rheumatism Arthritis Kidney disease COPD (chronic obstructive pulmonary disease) Hypertension Other and unspecified hyperlipidemia Osteoporosis Personal history of nicotine dependence Surgical History Hx of section Hx of arthroscopy of left knee History of biopsy of kidney H/O colonoscopy History of tubal ligation History of surgical removal of ganglion cyst History of right knee surgery Family History Mother HTN (hypertension) Social History Are you a primary urgent care nurse practitioner to a significant other at home: No Do you presently have visiting nurse or other home services: No Alcohol intake: current Alcohol intake frequency: does not drink Patient Tobacco Use Status: Former Tobacco user Years Smoked: (onset 22yo, 1/2+ppd x 39yrs, 20pyh, occasional cigar now) Physical Exam Vital Signs: BMI result Body Mass Index 26.6 Comfortable Neck supple no JVD. Lungs entry equal no rales. Heart S1-S2 heard no gallop or rub. Abdomen soft nontender. Neuro alert awake oriented. No asterixis. Extremities no edema. Results Reviewed Results Reviewed: Dec 2023: IMPRESSION: 1. Multiple bilateral nonobstructive renal calculi. 2. Multiple benign-appearing bilateral renal cysts, some of which demonstrate peripheral calcifications and/or layering milk of calcium. Follow-up as clinically warranted. Nephrology Results: Hgb, (12.0-16.0) 12.4 g/dl 12/28/24 WBC, (4.8-10.8) 8.9 X10*3/uL 12/28/24 Plt Count, (160-400) 221 X10*3/uL 12/28/24 Sodium, (135-145) 147 mmol/L H 01/24/25 Potassium, (3.3-5.1) 3.5 mmol/L 01/24/25 Chloride, (96-108) 110 mmol/L H 01/24/25 Carbon Dioxide, (22-29) 29 mmol/L 01/24/25 BUN, (9-16) 24 mg/dL H 01/24/25 Creatinine, (0.5-1.4) 1.45 mg/dL H 01/24/25 Calcium, (8.4-10.2) 9.6 mg/dL 01/24/25 Phosphorus, (2.7-4.5) 2.8 mg/dL 01/24/25 PTH Intact, (8.7-77.1) 39.4 pg/mL 01/24/25 Urine Protein, (Neg-Trace) 100 (2+) mg/dL H 01/24/25 Urine Creatinine 50.73 mg/dL 01/24/25 Renal US 01/26/24 Assessment & Plan Assessment & Plan (1) CKD (chronic kidney disease) stage 3, GFR 30-59 ml/min: Code(s): N18.30 - Chronic kidney disease, stage 3 unspecified Category: Medical (2) MARY (acute kidney injury): Code(s): N17.9 - Acute kidney failure, unspecified Category: Medical (3) Hypercalcemia: Code(s): E83.52 - Hypercalcemia Category: Medical (4) Hypernatremia: Code(s): E87.0 - Hyperosmolality and hypernatremia Category: Medical (5) Hypokalemia: Code(s): E87.6 - Hypokalemia Category: Medical Plan Middle-aged woman with hypertension- acute kidney injury superimposed on chronic disease along with hypercalcemia. CT scan in the past revealed nonobstructive to renal calculi. s/p MARY Hypoperfusion from volume depletion secondary to use of Lasix- especially since she has hypernatremia and hypokalemia. Creatinine improved after stopping LASIX/Lisinopril Lasix has been added Cr has bumped up again STOPPED Lasix and cr improved. Increase her to increase fluid intake. Creatinine is stable at 1.35 She has also developed hypercalcemia. PTH is elevated and serum electrophoresis is normal. Other serologies normal Keep Cinacalcet 30 mg Q D h/o Bilateral renal stones [place]cent[place] in [facility] Will check 24 hr urine Needs to stay on low salt diet Increase PO Fluids Hypernatremia due to insufficient fluid intake Encouraged to increase free water intake. Orders: Orders Calcium, 24 Hr Ur Today N18.30 - Chronic kidney disease, stage 3 unspecified Oxalate, 24 Hr Today N18.30 - Chronic kidney disease, stage 3 unspecified Sodium, 24Hr Urine Group Today N18.30 - Chronic kidney disease, stage 3 unspecified Creatinine, 24 Hr Group Today N18.30 - Chronic kidney disease, stage 3 unspecified Uric Acid, 24Hr Urine Group Today N18.30 - Chronic kidney disease, stage 3 unspecified Citric Acid 24hr Urine Today N18.30 - Chronic kidney disease, stage 3 unspecified Coding Level of Care Code Est Pt Level 4 (58442) Diagnoses CKD (chronic kidney disease) stage 3, GFR 30-59 ml/min N18.30 MARY (acute kidney injury) N17.9 Hypercalcemia E83.52 Hypernatremia E87.0 Hypokalemia E87.6
== END 2025-01-26 09:08 | disposition home or self-care (01) ==
LOC: HO.HKAS 08:43
PROVIDERS: PCP Internal Medicine; Visit Provider Internal Medicine Hypertension Specialist
DX: N18.30 Chronic kidney disease, stage 3 unspecified (principal); N17.9 Acute kidney failure, unspecified; E83.52 Hypercalcemia; E87.0 Hyperosmolality and hypernatremia; E87.6 Hypokalemia
CPT/HCPCS: 99214

== ENCOUNTER 2025-01-26 08:42 | Outpatient (REF) | payer OTHER, SELFPAY ==
--- OUTSIDE RECORDS SUMMARY | 2025-01-26 10:33 | XMS_ITS | Clinical Summary ---
Author Organization [facility] Address [address] [place] [address] Phone Care Team Providers Care Recruiting Operations Consultant Name Role Phone Chanel Duarte MD Primary [...] age to complete this topic Insurance ([id number]) [place] [address] ([id number]) Care Teams Recruiting Operations Consultant Relationship Specialty Start Date End Date Cahnel Duarte MD [address] [place] [address] PCP - General 04/10/20
== END 2025-01-26 08:43 | disposition home or self-care (01) ==
LOC: HO.HKASLDS 08:42
PROVIDERS: PCP Internal Medicine; Visit Provider Internal Medicine Hypertension Specialist
DX: N18.30 Chronic kidney disease, stage 3 unspecified (principal); N17.9 Acute kidney failure, unspecified; E83.52 Hypercalcemia; E87.0 Hyperosmolality and hypernatremia; E87.6 Hypokalemia
CPT/HCPCS: 99212

== ENCOUNTER 2025-01-28 09:31 | Outpatient (AMB) | payer OTHER, SELFPAY ==
[2025-01-28 10:02] VITALS: BMI 26.6
--- NOTE | 2025-01-28 10:02 | MHC.OFFVIS ---
Vital Signs 01/28/25 10:02 Height 5 ft 3 in Weight 150 lb BMI 26.6 Intake Visit Reasons: Pre-Op: L TKA w/NE 02/01/25 Intake Note: Sisi is a 64 year old female who presents today for a preoperative visit for a scheduled left total knee arthroplasty, DOS 02/01/[address] Chavarria. Pain management agreement reviewed and signed. Health Care / Medical Job Titles Required: Yes Health Care / Medical Job Titles Services: Health Care / Medical Job Titles Present Health Care / Medical Job Titles Name: Jyoti, CCMA, LM Allergies MARIALUISA Inhibitors Allergy (Verified 01/28/25 10:10) Unknown Tramadol Adverse Reaction (Mild, Uncoded 01/28/25 10:10) heart racing Medication List - Last Reconciled 01/28/25 by Nancy Ambrose PA-C amlodipine 5 mg PO DAILY cinacalcet 30 mg PO DAILY clonazepam 0.5 mg PO BEDTIME [Folding Front Wheeled walker Duration: 99 days] omeprazole 20 mg PO DAILY prazosin 2 mg PO BEDTIME PRN quetiapine 100 mg PO BEDTIME PRN rosuvastatin 40 mg PO DAILY sertraline 100 mg PO DAILY PRN HPI HPI Pre-Op: L TKA w/NE 02/01/25: Details: 64-year-old female presents to the office today for orthopedic preop clearance. She is scheduled for a left total knee arthroplasty on 02/01/[address] Chavarria. She has had a history of left knee pain for over 2 years which limits her ability to perform daily activities. She has pain that is worse with walking or using stairs. She was fit for a lateral technology strategist brace to help offset her valgus deformity. She has stage 4 chronic kidney disease and is unable to tolerate NSAIDs. She has used Percocet in the past to help with her pain. Patient lives with her in a 2 level home with 7 steps to enter. PCP clearance obtained with Dr. Duarte on 01/04/2025: RCRI score is 0 that puts her at 0.5% risk of major cardiac events perioperatively. She is acceptable risk for the proposed surgery. [facility] Medical History Back pain Anxiety Hard of hearing Depression Osteoarthritis Spinal stenosis Rheumatism Arthritis Kidney disease COPD (chronic obstructive pulmonary disease) Hypertension Other and unspecified hyperlipidemia Osteoporosis Personal history of nicotine dependence Surgical History Hx of section Hx of arthroscopy of left knee History of biopsy of kidney H/O colonoscopy History of tubal ligation History of surgical removal of ganglion cyst History of right knee surgery Family History Mother HTN (hypertension) Social History Are you a primary personal care service provider to a significant other at home: No Do you presently have visiting nurse or other home services: No Alcohol intake: current Alcohol intake frequency: does not drink Patient Tobacco Use Status: Former Tobacco user Years Smoked: (onset 22yo, 1/2+ppd x 39yrs, 20pyh, occasional cigar now) Review of Systems Const All systems reviewed & are unremarkable except as noted in HPI and below Physical Exam Vital Signs: BMI result Body Mass Index 26.6 Const General: cooperative, healthy appearing, comfortable, no acute distress, well developed and alert Orientation/consciousness: patient oriented x3 HEENT Head: Yes normal to inspection, Yes normocephalic and Yes atraumatic Eyes General: appearance normal, both eyes and all related structures Neck Neck: Yes normal visual inspection and Yes no lymphadenopathy Resp Effort & Inspection: normal respiratory effort and able to speak in complete sentences Cardio Rate: regular rate Peripheral pulses: Peripheral pulses 2+ throughout GI Inspection: Yes normal to inspection Palpation (GI): Soft to palpation Skin General skin exam: no rashes or lesions noted Neuro General: patient oriented x3 Extrem Other: Left knee skin is intact no open wounds or abrasions. No joint effusion present. She has full range of motion with valgus deformity. Calf supple and nontender neurovascularly intact. Psych Appearance: grossly normal Mental Status: mental status grossly normal Results Reviewed Results Reviewed: X-rays obtained in the office today for surgical planning. Assessment & Plan Assessment & Plan (1) Arthritis of left knee: Code(s): M17.12 - Unilateral primary osteoarthritis, left knee Category: Medical Plan: Ms. Osmel Prieto exhausted all conservative measures consisting of lifestyle modifications, physical therapy, analgesics, corticosteroid injections and use of assisted devices and continues to have significant limitations in daily activities along with decreased quality of life. Given the patient's desire to improve their quality of life, surgical intervention consisting of joint replacement surgery is recommended at this time.? We discussed the procedure in detail today; which includes pre op preparation with labs and reviewing patients medication regimen prior to surgery. She was sent to the hospital to obtain a CBC and type and screen. I discussed at length the post op course which includes physical therapy services in the hospital along with the discharge routine and the patients plan upon discharge. Patient would like to be discharged home with VNA services. I explained to the patient, once they are DC home, they will receive VNA services which will include PT 2-3x per week. We also discussed their choice for outpatient PT once they are discharged from home PT. Patient would like to attend [facility] core physical therapy. She was given a card to contact them to make an appointment to begin after her 1st postop appointment. Post op DVT ppx was also discussed and the considering the patients CKD stage 4 she should avoid NSAIDs. She will be placed on Lovenox 40 mg subQ postoperatively x6 weeks. I reviewed with the patient their post op pain medication regimen along with the detailed wean program. The patient did express understanding of this and agreed to the narcotic policy. Lastly, I discussed with the patient the risks to the procedure. Risks including but not limited to infection, injury to surrounding nerves, tissue , bone, small and large vessels, stiffness, aseptic loosening, fracture, dislocation, amputation, DVT/PE along with intraoperative complications including but not limited to . The patient does express understanding, all questions were answered and the patient would like to proceed? with left knee arthroplasty with Dr. Chavarria. Consents were signed and dated while in the office today.? Post-Operative Recovery Notes: DVT ppx : [facility] DC plan: Home with VNA Physical Therapy: [facility] core Walker obtained Orders: Orders Complete Blood Count Auto Diff Today Z01.818 - Encounter for other preprocedural examination XR knee LT 3V Today M25.562 - Pain in left knee Type and Screen Today Z01.818 - Encounter for other preprocedural examination Coding Level of Care Code Est Pt Level 3 (33029) Complex EM visit Add On G2211 Diagnoses Arthritis of left knee M17.12
--- OUTSIDE RECORDS SUMMARY | 2025-01-28 10:34 | XMS_ITS | Clinical Summary ---
Author Organization [facility] Address [address] [place] [address] Phone Care Team Providers Care Storage Facility Housekeeper Name Role Phone Chanel Duarte MD Primary [...] age to complete this topic Insurance ([id number]) [place] [address] ([id number]) Care Teams Storage Facility Housekeeper Relationship Specialty Start Date End Date Chanel Duarte MD [address] [place] [address] PCP - General 04/10/20
== END 2025-01-28 11:48 | disposition home or self-care (01) ==
LOC: HO.HOS 09:31
PROVIDERS: PCP Internal Medicine; Visit Provider Physician Assistant
DX: M17.12 Unilateral primary osteoarthritis, left knee (principal)
CPT/HCPCS: 99024

== ENCOUNTER → 2025-01-28 09:47 | Outpatient (BNV) | payer OTHER, SELFPAY | PROVIDERS: Visit Provider Radiology Diagnostic Radiology | DX: M25.562 Pain in left knee (principal) | CPT/HCPCS: 73562 ==

== ENCOUNTER 2025-01-28 14:38 | Outpatient (REF) | payer OTHER, SELFPAY ==
--- OUTSIDE RECORDS SUMMARY | 2025-01-25 09:10 | XMS_ITS | Continuity of Care Document ---
Author Organization [facility] ter Address [address] [place] [id number]- Care Team Providers Care Greens Picker Name Role Phone Chanel Duarte MD Primary Care Physician Encounter [facility] Date(s): 01/25/25 - 01/25/[address] [address]- Encounter Diagnosis Nephrolithiasis(Final) - 01/25/25 Discharge Disposition: A-D/C Home Attending Physician: Frank Harden MD Admitting Physician: Frank Harden MD Referring Physician: Not on Staff, Referring MD Encounter Type: Disch ES Allergies, Adverse Reactions, Alerts Substance Criticality Severity Reaction Reaction Severity Status traZODone Active Medications Amlodipine 2.5 mg, By Mouth, Daily, Maintenance, 05/03/15 7:39:05 AM EST Start Date: 05/03/15 Status: Ordered Medication Dispense Status: Completed Total Allowed Fills: 1 Fills Dispensed: 0 clonazePAM 1 mg oral tablet 1 tablet = 1 mg, By Mouth, 3 times a day, 0 Refills, Maintenance, 05/03/15 7:40:07 AM EST Start Date: 05/03/15 Status: Ordered Medication Dispense Status: Completed Total Allowed Fills: 1 Fills Dispensed: 0 Golytely - oral powder for reconstitution See Instructions, Drink 240mL every 15 minutes until gone, # 4,000 mL, 0 Refills, Maintenance, 06/12/21 1:43:00 PM EDT, [id number], Partial fill upon patient request if the prescription is for a schedule II opioid drug., Drink 240mL every 15 minutes until gone, 161, cm, 06/12/21 13:23:00 EDT, Height Start Date: 06/12/21 Status: Ordered Medication Dispense Status: Completed Quantity: 4000.0 Unit: mL Total Allowed Fills: 1 Fills Dispensed: 0 hydrochlorothiazide-lisinopril 12.5 mg-10 mg oral tablet 1, tablet, By Mouth, Daily, # 180 tablet, 5 Refills Start Date: 04/28/06 Stop Date: 07/10/17 Status: Ordered Medication Dispense Status: Completed Quantity: 180.0 Unit: tablet Total Allowed Fills: 24 Fills Dispensed: 0 MorPHINE Inj 2 mg, Injection, IV Push Slowly, Every 5 minutes for 3 doses/times, PRN for Pain , Moderate, and SBP greater than 100, Routine, 01/25/25 8:11:00 AM EDT Start Date: 01/25/25 Stop Date: 01/25/25 Status: Discontinued Medication Dispense Status: Completed Total Allowed Fills: 1 Fills Dispensed: 0 NuLYTELY [place] oral powder for reconstitution 240 mL, By Mouth, Every 15 minutes, # 4,000 mL, 0 Refills, Maintenance, 05/03/15 8:36:11 AM EST, [id number] Start Date: 05/03/15 Status: Ordered Medication Dispense Status: Completed Quantity: 4000.0 Unit: mL Total Allowed Fills: 1 Fills Dispensed: 0 QUEtiapine 100 mg oral tablet 1 tablet = 100 mg, By Mouth, 2 times a day, 0 Refills, Maintenance, 05/03/15 7:39:43 AM EST Start Date: 05/03/15 Status: Ordered Medication Dispense Status: Completed Total Allowed Fills: 1 Fills Dispensed: 0 temazepam 15 mg oral capsule 15 mg, 1, capsule, By Mouth, Daily at bedtime, 0 Refills Start Date: 05/13/06 Status: Ordered Medication Dispense Status: Completed Total Allowed Fills: 1 Fills Dispensed: 0 Mental Status Mental Status Assessment Assessment Assessment Component Result Effecti ve Date Arnaud coma score total 15 Problem List Condition Confirmation Course Effective Dates Status Health St atus Informant Depression Confirmed Active Hypertension Confirmed Active Results Radiology Reports * Exam Date Time Procedure Performing Provider Status 01/25/25 8:[address] Abd/Pelvis W/ IV Contrast Only Auth (Verified) Notes: (CT Abd/Pelvis W/ IV Contrast Only) Reason For Exam: RLQ abdominal pain, appy vs stone;Other: RESULT: CT Abd/Pelvis W/ IV Contrast Only CT Abd/Pelvis W/ IV Contrast Only Hx of Present Illness: pt got up to use BR this morning, afterwards had severe pain to RLWQ and private area states feels like something is going to come out and like she needs to constantly pee. Denies any symptoms prior to this event this morning.; Reason: RLQ abdominal pain, appy vs stone; Clinical Question(s): Appendicitis TECHNIQUE: Spiral CT through the abdomen and pelvis with IV contrast formatted in 3 planes. 100 cc of Isovue 300 100cc vials was administered intravenously. This study was performed without oral contrast. Weight-based protocol using automatic tube modulation was used to optimize exposure parameters. CTDIvol Body: 16.00 mGy, DLP Body: 773 mGy*cm. COMPARISON: None. FINDINGS: Pharmacist Assistant View Findings, Lines and Tubes: None. Visualized Chest: Bibasilar lung atelectasis. No pleural effusion. The heart is normal in size. No pericardial effusion. Diaphragm: Normal. Liver: Multiple subcentimeter circumscribed low-density lesions likely represent cysts (in the absence of known malignancy). Gallbladder: No CT evidence of gallbladder pathology. Bile ducts: No biliary ductal dilation. Spleen: Normal. Accessory splenic tissue is incidentally noted. Pancreas: Pancreatic tail 12 mm cyst and 2 mm calcification. No duct dilatation or suspicious lesion. Adrenal glands: Normal right adrenal gland. 1.5 cm indeterminate left adrenal nodule. Kidneys and ureters: Multiple bilateral renal calculi measuring 1 to 2 mm in the left kidney and one 3 mm in the right kidney. Mild right hydronephrosis and right hydroureter. Simple appearing renal cysts are noted, requiring no dedicated follow up. Bladder: 2 mm calculus layering the posterior right bladder suggesting recently passed stone. Reproductive organs: Unremarkable. Stomach, small bowel, and large bowel: Normal stomach, small bowel, and proximal: There is descending and sigmoid colon diverticulosis without acute inflammatory change. Appendix: Normal. Peritoneum and retroperitoneum: No ascites or pneumoperitoneum. No omental or mesenteric lesions. Lymph nodes: No enlarged lymph nodes. Blood vessels: Mild to moderate vascular calcifications but no aneurysm. No evidence of venous thrombosis. Abdominal and pelvic wall: Unremarkable. Bones: No acute abnormality. IMPRESSION: Mild right hydronephrosis and right hydroureter with 2 mm layering calculus in the posterior right bladder suggesting recently passed calculus. Additional nonobstructing bilateral nephrolithiasis. Left colon diverticulosis without acute inflammatory change. 1.5 cm indeterminate left adrenal lesion, possibly adenoma. Consider nonemergent follow MRI which can also assess the pancreatic tail cystic lesion. WSN: [id number] Ordering Physician: Duane Morton Dictated By: Wilmer Dhillon MD Dictated Date/Time: 01/25/25 9:24 am Reviewed By: Wilmer Dhillon MD Signed By: Wilmer Dhillon MD Signed Date/Time: 01/25/25 9:24 am Transcribed By: STEPHANY Transcribed Date/Time: 01/25/25 9:11 am Vital Signs Most recent to oldest [Reference Range]: 1 2 3 Height 160 cm (01/25/25 10:06 AM) 160 cm (01/25/25 4:20 AM) Weight 68 kg (01/25/25: AM) 68 kg (01/25/25:20 AM) Oxygen Saturation [94-100 %] 96 % (01/25/25 10:06 AM) 100 % (01/25/25 4:20 AM) Pulse Rate [55-90 bpm] 72 bpm (01/25/25 10: AM) 75 bpm (01/25/25 4:20 AM) Body Mass Index [18.5-24.99 kg/m2] 26.56 kg/m2 *H* (01/25/25 10: AM) 26.56 kg/m2 *H* (01/25/25 4:20 AM) Blood Pressure [90-138/55-84 mm Hg] 129/65mm Hg (01/25/25 10:06 AM) 163/100mm Hg *H* (01/25/25 4:20 AM) Respiratory Rate [16-30 br/min] 18 br/min (01/25/25 10:06 AM) 16 br/min (01/25/25 8:17 AM) 100 br/min *H* (01/25/25 4:20 AM) Temperature [96.8-100.4 DegF] 97.9 DegF (01/25/25 4:20 AM) Mode of Delivery (Oxygen) Room air (01/25/25 10:06 AM) Room air (01/25/25 4:20 AM) Blood pressure sites Arm, left (01/25/25 10:06 AM) Arm, right (01/25/25 4:20 AM) Temperature Route Oral (01/25/25 4:20 AM) Dry Weight 68 kg (01/25/25 10:06 AM) 68 kg (01/25/25 4:20 AM) Social History Social History Type Response Sex Sex Representation Female (finding) Status Not EKG study * Event Display: EKG Authored Date: Patient Care team information Care Team Personnel Name: Chanel Duarte MD Position: [facility] Outreach Member Role: PCP Address: [address] [place] [address] [address] [place] [address]- Telecom: Name: Miko GARCIA, Rylan Mcclendon Position: [facility] Renal MD Member Role: Lifetime Consulting Physician Address: [address] [place] [address] [address] [facility] [place] [address]- Telecom: Care Team Related Persons Name: SHARLENE BABCOCK Name: JEYSON DOSS Insurance Providers Guarantor name: ANAY DOSS Health Plan Information #: 1 Payer: [employer] Payer Identifier: NA Member Number: [id number] Group Number: [id number] Subscriber Identifier: [id number] Relationship to Subscriber: self Coverage Type: Medicare Managed Care (Includes Medicare Advantage Plans) Coverage Verification Date: NA Telecom: NA Address:
--- NOTE | ~2025-01-28 | XR_ITS ---
EXAMINATION: XR KNEE 3 VIEWS LEFT HISTORY: M25.562 - Pain in left knee COMPARISON: Comparison is made with the prior examination dated 02/21/2023. FINDINGS: Standing AP views of both knees and additional lateral and sunrise patellar views of the left knee are submitted. Osseous mineralization is normal. There is no fracture or dislocation. There is moderate osteoarthritis of the lateral compartment, with joint space narrowing and osteophyte formation. The soft tissues are unremarkable. There is no joint effusion. XR/XR knee LT 3V IMPRESSION: Moderate osteoarthritis of the lateral compartment of the left knee. Electronically signed by: Quinten Mauricio MD 01/28/2025 10:29 AM EDT
--- OUTSIDE RECORDS SUMMARY | 2025-01-30 14:41 | XMS_ITS | Clinical Summary ---
Author Organization [facility] Address [address] [place] [address] Phone Care Team Providers Care Grades 7 And 8 Teacher Name Role Phone Chanel Duarte MD Primary [...] age to complete this topic Insurance ([id number]) [place] [address] ([id number]) Care Teams Grades 7 And 8 Teacher Relationship Specialty Start Date End Date Chanel Duarte MD [address] [place] [address] PCP - General 04/10/20
== END 2025-01-28 14:39 | disposition home or self-care (01) ==
LOC: HO.HOSX 14:38
PROVIDERS: Visit Provider Physician Assistant
DX: Z01.818 Encounter for other preprocedural examination (principal); M17.12 Unilateral primary osteoarthritis, left knee
CPT/HCPCS: 73562; 99212

== ENCOUNTER 2025-02-01 05:48 | Day surgery (SDC) | payer OTHER, SELFPAY ==
--- OUTSIDE RECORDS SUMMARY | 2024-12-15 17:30 | XMS_ITS | Clinical Summary ---
Author Organization [facility] Address [address] [place] [address] Phone Care Team Providers Care Resin Painter Name Role Phone Chanel Duarte MD Primary [...] age to complete this topic Insurance ([id number]) [place] [address] ([id number]) Care Teams Resin Painter Relationship Specialty Start Date End Date Chanel Duarte MD [address] [place] [address] PCP - General 04/10/20
--- NOTE | 2025-01-03 | ECG_ITS ---
Test Reason : PRE OP Blood Pressure : */* mmHG Vent. Rate : 66 BPM Atrial Rate : 66 BPM P-R Int : 186 ms QRS Dur : 96 ms QT Int : 428 ms P-R-T Axes : 62 75 80 degrees QTcB Int : 448 ms Normal sinus rhythm Normal ECG When compared with ECG of 29-Dec-2023 16:47, No significant change was found Referred By: Lorie Marie Electronically Signed By: DONNA MONTOYA MD
[2025-01-03 10:39] VITALS: BP 135/64; PULSE 68; RESP 17; O2SAT 96; BMI 26.9
--- NOTE | 2025-01-03 11:01 | HO.ANESPROP2 ---
Documented by User: Lorie Marie NP 01/03/25 11:25 HPI - Anesthesia Eval Consult details Narrative: 64 yr old female for left total knee replacement scheduled for 02/01/25 seen in PAT 01/03/25 with big machine consultant Will see PCP, Dr. Duarte 01/04/25 for medical clearance No CP/SOB with house work, stair climbing, walking at home. No recent illness Sees renal for CKD, baseline creat 1.2 Had cardiac work up at [facility] in 2020, including echo, stress echo --> negative for ischemia or wall motion abnormalities. Discharged from cardiology to prn f/u in 2022. [facility] Active Problems Active Problems: All Active Problems (Updated 01/03/25 @ 10:21 by Donya Pineda RN) Arthritis of left knee (Acute) Physiologic genu valgum of left knee (Acute) Hypokalemia (Acute) Hypernatremia (Acute) Hypercalcemia (Acute) CKD (chronic kidney disease) stage 3, GFR 30-59 ml/min (Acute) MARY (acute kidney injury) (Acute) Abnormal echocardiogram findings without diagnosis (Acute) Essential hypertension (Acute) SOB (shortness of breath) (Acute) Precordial chest pain (Acute) Osteoporosis (Acute) Personal history of nicotine dependence (Acute) Other and unspecified hyperlipidemia (Acute) Past Medical History Medical History Back pain Anxiety Hard of hearing Depression Osteoarthritis Spinal stenosis Rheumatism Arthritis Kidney disease COPD (chronic obstructive pulmonary disease) Hypertension Other and unspecified hyperlipidemia Osteoporosis Personal history of nicotine dependence Family History Family History Mother HTN (hypertension) Family history of problems with anesthesia: No Surgical History Surgical History Hx of section Hx of arthroscopy of left knee History of biopsy of kidney H/O colonoscopy History of tubal ligation History of surgical removal of ganglion cyst History of right knee surgery History of Problems with Anesthesia: No Social History Social History Are you a primary healthcare marketer to a significant other at home: No Do you presently have visiting nurse or other home services: No Alcohol intake: current Alcohol intake frequency: does not drink Patient Tobacco Use Status: Former Tobacco user Years Smoked: (onset 22yo, 1/2+ppd x 39yrs, 20pyh, occasional cigar now) Use of substances other than those prescribed or required for medical reasons: No Have you been hit, kicked, punched, or otherwise hurt by someone within the past year? If so, by whom?: No Are you DNR?: No Advance Directives: No Advance Directives Information Provided: Yes Advance Directives on File: No Patient : No : No Meds Allergies Allergy/AdvReac Type Severity Reaction Status Date / Time MARIALUISA Inhibitors Allergy Unknown Verified 01/28/25 10:10 Tramadol AdvReac Mild heart Uncoded 01/28/25 10:10 racing Home Medications ?Medication ?Instructions ?Recorded ?Confirmed ?Last Taken ?Type amlodipine 5 mg tablet 5 mg PO DAILY 11/22/20 01/28/25 12/05/22 History prazosin 2 mg capsule 2 mg PO BEDTIME PRN Anxiety 11/22/20 01/28/25 Unknown History sertraline 100 mg tablet 100 mg PO DAILY PRN Anxiety 11/22/20 01/28/25 Unknown History clonazepam 0.5 mg tablet 0.5 mg PO BEDTIME 10/16/21 01/28/25 Unknown History quetiapine 100 mg tablet 100 mg PO BEDTIME PRN Anxiety 07/09/22 01/28/25 Unknown History rosuvastatin 40 mg tablet 40 mg PO DAILY 10/06/23 01/28/25 Unknown History omeprazole 20 mg capsule,delayed 20 mg PO DAILY 01/03/25 01/28/25 Unknown History release Exam Height,Weight and Vital Signs: Height 5 ft 3 in Weight 68.946 kg Last Vital Signs Pulse 68 01/03/25 10:39 Resp 17 01/03/25 10:39 BP 135/64 01/03/25 10:39 Pulse Ox 96 01/03/25 10:39 O2 Del Method Room Air 01/03/25 10:39 Pertinent Lab Results Pertinent Lab Results: Laboratory Tests 12/28/24 09:45 WBC 8.9 RBC 4.13 L Hgb 12.4 Hct 35.7 L Plt Count 221 Sodium 146 H Potassium 3.8 BUN 24 H Creatinine 1.54 H Airway Mallampati Class: II TM Dist: >3cm Neck ROM: Full Loose/Missing/Broken Teeth: Yes and Upper (M left back teeth) Heart: RRR Lungs: CTAB Assessment and Plan Final Anesthetic Review Family History of Problems with Anesthesia: No History of Problems with Anesthesia: No Documented by User: Edwina Lamas MD 02/01/25 08:23 PMFSH Past Medical History Medical History Back pain Anxiety Hard of hearing Depression Osteoarthritis Spinal stenosis Rheumatism Arthritis Kidney disease COPD (chronic obstructive pulmonary disease) Hypertension Other and unspecified hyperlipidemia Osteoporosis Personal history of nicotine dependence Family History Family History Mother HTN (hypertension) Surgical History Surgical History Hx of section Hx of arthroscopy of left knee History of biopsy of kidney H/O colonoscopy History of tubal ligation History of surgical removal of ganglion cyst History of right knee surgery Social History Social History Are you a primary healthcare marketer to a significant other at home: No Do you presently have visiting nurse or other home services: No Alcohol intake: current Alcohol intake frequency: does not drink Patient Tobacco Use Status: Former Tobacco user Years Smoked: (onset 22yo, 1/2+ppd x 39yrs, 20pyh, occasional cigar now) Use of substances other than those prescribed or required for medical reasons: No Have you been hit, kicked, punched, or otherwise hurt by someone within the past year? If so, by whom?: No Are you DNR?: No Advance Directives: No Advance Directives Information Provided: Yes Advance Directives on File: No Patient : No : No Meds Allergies Allergy/AdvReac Type Severity Reaction Status Date / Time MARIALUISA Inhibitors Allergy Unknown Verified 01/28/25 10:10 Tramadol AdvReac Mild heart Uncoded 01/28/25 10:10 racing Home Medications ?Medication ?Instructions ?Recorded ?Confirmed ?Last Taken ?Type amlodipine 5 mg tablet 5 mg PO DAILY 11/22/20 01/28/25 12/05/22 History prazosin 2 mg capsule 2 mg PO BEDTIME PRN Anxiety 11/22/20 01/28/25 Unknown History sertraline 100 mg tablet 100 mg PO DAILY PRN Anxiety 11/22/20 01/28/25 Unknown History clonazepam 0.5 mg tablet 0.5 mg PO BEDTIME 10/16/21 01/28/25 Unknown History quetiapine 100 mg tablet 100 mg PO BEDTIME PRN Anxiety 07/09/22 01/28/25 Unknown History rosuvastatin 40 mg tablet 40 mg PO DAILY 10/06/23 01/28/25 Unknown History omeprazole 20 mg capsule,delayed 20 mg PO DAILY 01/03/25 01/28/25 Unknown History release Assessment and Plan Assessment Anesthesia Assessment: Anesthesia Plan Discussed and Chart Reviewed Final Anesthetic Review NPO: Yes ASA Class: III Final Preanesthetic Review: No Changes in Pt Med Stat, Meds/Allgs Chart Reviewed, Consent Obtained/Reviewed and Anes Risks/Benef Reviewed Patient Risk: Intermediate Procedure Risk: Intermediate Anesthetic Plan Anesthetic Plan: MAC:, Spinal, Neuraxial Block:, Regional Block and Agree w/ Assess. and Plan Disposition: Standard PACU
[2025-01-03 12:47] LABS: MRSA Nasal PCR NEGATIVE (Negative); SA Nasal PCR NEGATIVE (Negative)
[2025-01-28 11:01] LABS: MANUAL DIFF FLAG NO
[2025-01-28 11:40] LABS: Hematocrit 38.0 % (37.0-47.0); Hemoglobin 12.7 g/dl (12.0-16.0); Imm Gran Abs Auto 0.04 X10*3/uL (0.00-0.03); Imm Gran Pct Auto 0.5 % (0.0-0.4); Lymphocytes Absolute Auto 2.5 X10*3/uL (1.2-4.9); Mean Corpuscular HGB Conc 33.4 g/dl (31.0-35.0); Mean Corpuscular Hemoglobin 29.5 pg (27.0-33.0); Mean Corpuscular Volume 88.2 fL (80.0-98.0); NRBC Abs Auto 0.000 X10*3/uL (0.0-0.012); NRBC Pct Auto 0.0 /100WBC (0.0-0.2); Platelet Count 235 X10*3/uL (160-400); Red Blood Count 4.31 X10*6/uL (4.20-5.50); White Blood Count 8.9 X10*3/uL (4.8-10.8)
[2025-02-01] VITALS (20 sets, daily range): BP systolic 116–151; BP diastolic 48–86; PULSE 69–90; RESP 8–18; TEMP 36.1–36.9; O2SAT 95–98
--- NOTE | ~2025-02-01 | XR_ITS ---
EXAMINATION: XR KNEE, LEFT CLINICAL INFORMATION: lt tka COMPARISON: Previous x-ray January 28, 2025 TECHNIQUE: 2 views of the left knee. FINDINGS: New left 3 component knee replacement in satisfactory position. No fracture or dislocation. Postsurgical changes to the soft tissues soft tissue swelling and air in the joint space and soft tissues. XR/XR knee LT 2V IMPRESSION: New left total knee replacement. Electronically signed by: Reshma Snyder MD 02/01/2025 11:27 AM ALIA
--- NOTE | 2025-02-01 07:05 | MHC.SHP ---
Pre-Procedural Eval Section A - 24 Hr Update-Section A only Date of Service: 02/01/25 The patient is an INPATIENT: No Changes since office visit: No Cold of Flu in the past 2 weeks, No New Medical Problems, No Changes in Medication and No Patient answered all questions The patient has been examined within 24 hours of the surgical procedure. The History & Physical has been completed within 30 days and I have reviewed it.: Yes Section B - Complete if H&P > 30 days Chief Complaint: Unilateral primary osteoarthritis, left knee Allergies: Allergies Allergy/AdvReac Type Severity Reaction Status Date / Time MARIALUISA Inhibitors Allergy Unknown Verified 01/28/25 10:10 Tramadol AdvReac Mild heart Uncoded 01/28/25 10:10 racing Plan I have reviewed the history and physical and performed a pertinent physical examination on my patient. No changes have occurred unless specified. Time Spent With Patient Time: Total time managing care of this patient today ____ minutes.
[2025-02-01 07:21] LABS: Hematocrit 35.5 % (37.0-47.0); Hemoglobin 11.9 g/dl (12.0-16.0)
--- NOTE | 2025-02-01 10:29 | W.PM.OPN ---
Operative Note Operative Note Date of Service: 02/01/25 Narrative: Date of Service: 02/01/25 Pre-op diagnosis: Left knee OA Post-op diagnosis: same Procedure: Left TKA Implants: [place] Triathlon posterior stabilized cemented 05/03/09ps/32a Surgeon: Morgan Chavarria MD Anesthesia: regional and spinal Was an Typecasting Machine Operator used for this Procedure?: Yes Typecasting Machine Operator: Nancy Ambrose Estimated blood loss (mL): 25 Tourniquet time (min): 70 IV fluids (mL): 1,000 Pathology: other Condition: stable Disposition: PACU Procedure in detail: The patient was brought to the operating room and prepped and draped in standard sterile fashion. A time-out was called to identify proper site proper procedure proper surgeon and IV antibiotics were administered. 1 g of IV tranexamic acid was administered. There was no flexion contracture. I began by making a midline incision to the retinaculum and performed a medial parapatellar arthrotomy. The patella was translated laterally and the knee was flexed up. There was medial and lateral compartment eburnation. This was a valgus knee with intact MCL. I performed a small medial peel and resected the infrapatellar fat pad. Ramona's line was then used to drill my intramedullary femoral guide and my distal femur cut of 10 mm was made in 5 degrees of valgus while protecting the soft tissues. I then measured a #2 femur and placed my cutting guide. Given the diminutive LFC I externally roated to match the epicondylar axis. I placed my cutting guide and made my anterior,posterior and chamfer cuts protecting the soft tissues at all times. I then made my box but removing the PCL. Once I was satisfied with my cuts I turned my attention to the tibia. I removed the meniscus medially and laterally and , using an external cutting guide, in line with the tibial crest and the third ray, I made my distal tibial cut in 0 deg slope of while protecting the posterior soft tissues at all times. An extension block was used to confirm appropriate amount of bony resection. I then sized a #3 tibia and once I was satisfied that there was complete tibial coverage I placed my trial and with the trial femur in place took the knee through range of motion. I was satisfied with the extension, flexion and balance at 0, 30 and 90 degrees. I then turned my attention to the patella where I removed 1 cm from the undersurface of the patella and then trialed a 32a patellar button. Again the knee was taken through range of motion I was satisfied with the tracking. I then returned to the tibia and prepared the tibia with the drill and punch. A femoral bone plug was placed and the knee was irrigated copiously. I mixed 2 bags of Palacos bone cement on the back table using 3rd gen cementation technique. I then cemented the patella, tibia and femur in standard fashion while applying axial compression and with a clamp on the patella. Once the cement was dry I removed all excess cement. I trialed different inserts until I selected a #10 insert. The final insert was placed and a the knee was irrigated copiously and local TXA was administered. The knee was then closed with a running Quill suture, a 3 0 Vicryl and lai on the skin. Patient was then placed in sterile dressing and brought to recovery room in stable condition there were no known complications.
[2025-02-01] MEDS: Lactated Ringers 1,000 ML 100 ML IVCONT (14:24)
[2025-02-01] MEDS: oxyCODONE HCl Immed Release 5 MG TABLET PO (14:32)
--- NOTE | 2025-02-01 14:52 | PHA.MEDREC ---
Addendum entered by Sarah Salter [facility] 02/01/25 15:01: reviewed Original Note: Pharmacy Consult ? Medication Reconciliation Pharmacy has completed the medication reconciliation. Spoke with pt, utilizing cloth sander, and pt was able to confirm her medications. Pt confirmed she takes Prazosin and states she just picked up a 1mg and 2mg prescription and states she has only been taking the 1mg tabs and isn't sure why both were sent to be filled, pt takes her Clonazepam 0.5mg tabs only at bedtime and pt requests she does not take any of her psych meds while be impatient incase they make her too drowsy while being here.
--- NOTE | 2025-02-01 15:48 | P.DS_ITS ---
DS: Providers Provider Date of Service: 02/01/25 Date of discharge: 02/03/25 Primary care physician: Chanel Duarte MD Consults: 02/01/25 13:33 Consult to Case Management Routine Comment: lt tka home w vna Consult to Hospitalist Routine Comment: Consulting Provider: [facility] Hospitalists Reason For Exam: medical management DS: Diagnosis Discharge Diagnosis (1) Status post total left knee replacement: Status: Acute DS: Summary Hospital Course Hospital Course: The patient underwent a successful left total knee arthroplasty on 02/01/[address] Santiago, was transferred to PACU and then to the floor to recover. During their stay, their vitals were stable, afebrile at 96.8. Labs were unremarkable, H/H 10.6/30.9. POD 1 she was started on Lovenox 40mg sub Q for DVT ppx, they also received Physical Therapy services twice a day. Physical therapy should include gait training, ROM to tolerance and quad strength. She is WBAT. Prior to discharge, his dressing was changed, incision clean dry and intact, new Aquacel dressing applied. The Aquacel dressing should remain intact and dry at all times. Any concerns with the dressing, please contact orthopedic office. No showering. The plan is to be discharged home with vna Time Attestation Discharge Coordination Time (in mins): 30 Quality: Safe Use of Opioids Does Pt have an Active Cancer Diagnosis on the Problem List?: No Quality: Stroke Does the patient have a stroke diagnosis?: No Physical Exam Vital Signs: Vital Signs: Last Vital Signs Temp 97.1 F 02/01/25 13:46 Pulse 69 02/01/25 13:46 Resp 16 02/01/25 13:46 BP 145/71 H 02/01/25 13:46 Pulse Ox 97 02/01/25 13:46 O2 Del Method Nasal Cannula 02/01/25 13:46 O2 Flow Rate 2 02/01/25 13:46 BMI result Body Mass Index 26.9 Const: General: cooperative, healthy appearing and no acute distress Resp: Effort & Inspection: normal respiratory effort and able to speak in complete sentences Cardio: Rate: regular rate Peripheral pulses: Peripheral pulses 2+ throughout GI: Palpation (GI): Soft to palpation Skin: General skin exam: no rashes or lesions noted Extrem: Other: Patient resting in bed Bandage is clean dry and intact She is able to reach full extension, Active flexion to 45 She is able to plantar flex and dorsiflex Neurovascularly intact DS: Data Data Completed and Pending Pending studies at discharge: Pending at discharge 02/01/25 08:38 Surgical [PTH] Routine Labs on day of discharge: Laboratory Results - last 24 hr 02/01/25 06:52 Hgb 11.9 L Hct 35.5 L Discharge Plan Discharge Patient Disposition: Home Health Service Referrals: Nancy Ambrose PA-C [Physician Correctional Supervisor Lieutenant, Orthopedics] - 1 Week Referral Note: 02/17/25 09:45 [facility] Orthopedic Surgeons Nancy Ambrose PA-C Discharge Medications: New docusate sodium 100 mg Capsule 100 mg PO BID 7 Days Qty: 14 0RF oxycodone 10 mg tablet 10 mg PO Q4H PRN (Reason: Pain, Moderate(Pain Scale 4-6)) 7 Days Qty: 42 0RF Rx Instructions: Partial Fill upon patient request. celecoxib 200 mg Capsule 200 mg PO BID 30 Days Qty: 60 0RF acetaminophen 325 mg Tablet 650 mg PO Q6H PRN (Reason: Pain, Mild 1-3,Fever,Headache) 30 Days Qty: 240 0RF enoxaparin 40 mg/0.4 mL Syringe 40 mg subcut Q24H 42 Days Qty: 16.8 0RF Continued cinacalcet 30 mg tablet 30 mg PO DAILY Qty: 30 10RF (DME) Folding Front Wheeled walker See Rx Instructions .ROUTE .MEDSUPPLY Qty: 1 0RF Rx Instructions: Duration: 99 days omeprazole 20 mg Capsule,Delayed Release(Dr/Ec) 20 mg PO DAILY@0630 prazosin 1 mg capsule 1 mg PO BEDTIME amlodipine 5 mg tablet 5 mg PO DAILY sertraline 100 mg tablet 100 mg PO DAILY PRN (Reason: Anxiety) clonazepam 0.5 mg tablet 0.5 mg PO BEDTIME quetiapine 100 mg tablet 100 mg PO BEDTIME PRN (Reason: Anxiety) rosuvastatin 40 mg tablet 40 mg PO DAILY Discharge Orders: Discharge Order (Routine); Ordered 02/03/25 Ordered By: Nancy Ambrose Diet: Regular diet Activity on Discharge: Use cane or walker Activity Restrictions/Additional Instructions: Physical Therapy for ROM 0-120, quad strength, gait training. Use walker for ambulation Limit stair climbing No shower or tub bath No driving for 6 weeks Continue anticoagulant Keep Aquacel dressing clean, dry and intact. Follow up with orthopedics in 2 weeks -Bandage/Incision Site Care: -Ice 20mins at a time -Make sure you use a towel or cloth on your skin as a barrier -DO NOT remove the bandage -Keep Bandage clean, dry and intact -Do not get the bandage wet: -No tub bath, pools or hot tubs -If there are any concerns regarding the bandage please call orthopedics: [phone] -Knee Precautions: -Refrain from putting pillows under the knee -Keep leg straight while resting the knee -Avoid low chairs and deep couches -Use supportive shoes with nonslip soles -Physical Therapy: -Patient is WBAT with the use of a walker -Range of Motion: 0-120 degrees. -Strengthening: Quadriceps and hip muscles -Walking: Gait training and gradually increasing distance with walker -Ankle pumps and incentive spirometry to limit the risk of blood clot -Diet: -Resume regular diet as tolerated. -Drink plenty of fluids and eat a high-fiber foods to avoid constipation -This is a common side effect of pain medication) -Take stool softeners as prescribed -Blood Clot Prevention: -Take the prescribed blood thinner (Aspirin) as directed for 6 weeks -Perform ankle pumps and walk frequently with the walker and assistance if needed -Report calf pain, swelling, or shortness of breath immediately Print Language: Sumaya Parmar
--- NOTE | 2025-02-01 15:51 | P.F2F_ITS ---
Service Date Service Date: 02/01/25 Encounter Date of encounter: 02/02/25 Reasons for Services Signs and symptoms assessed: Weakness, poor balance, poor gait mechanics Reason for physical therapy: home safety and mobility, therapeutic exercises, restore joint function, gait/transfer training, ADL training and energy conservation Reason for occupational therapy: home safety and mobility, therapeutic exercises, restore joint function, gait/transfer training, ADL training and energy conservation Overseeing Care: Morgan Chavarria Homebound: Leaving the home is medically contraindicated at this time without the asist of a device and/or another person due th the listed conditions above and below. Reason homebound: unsteady gait / fall risk, pain with ambulation, poor balance / fall risk and unable to drive Homebound supporting statement: Pt. is considered home bound due to recent surgery. Unable to drive, poor balance, poor gait mechanics. Certification: Based on the above findings, I certify that this patient is confined to the home and needs intermittent [facility] care, physical therapy and/or speech therapy, or continues to need occupational therapy. The patient is under my care, and I have initiated the establishment of the plan of care. The patient will be followed by a physician who will periodically review the plan of care. Time Spent With Patient Time: Total time managing care of this patient today ____ minutes.
[2025-02-01] MEDS: oxyCODONE HCl ER 10 MG TAB.ER.12H PO (20:08)
[2025-02-01] MEDS: 0.9 % Sodium Chloride Flush 3 ML SYRINGE IVFLUSH (20:09)
[2025-02-02] MEDS: Lactated Ringers 1,000 ML 100 ML IVCONT (00:31)
[2025-02-02 04:00] VITALS: BP 126/60; PULSE 86; RESP 19; TEMP 37; O2SAT 96
[2025-02-02] MEDS: oxyCODONE HCl Immed Release 5 MG TABLET PO (06:09)
[2025-02-02 06:22] LABS: Hematocrit 32.3 % (37.0-47.0); Hemoglobin 11.0 g/dl (12.0-16.0); Imm Gran Abs Auto 0.07 X10*3/uL (0.00-0.03); Imm Gran Pct Auto 0.5 % (0.0-0.4); Lymphocytes Absolute Auto 1.9 X10*3/uL (1.2-4.9); MANUAL DIFF FLAG SCAN; Mean Corpuscular HGB Conc 34.1 g/dl (31.0-35.0); Mean Corpuscular Hemoglobin 28.9 pg (27.0-33.0); Mean Corpuscular Volume 85.0 fL (80.0-98.0); NRBC Abs Auto 0.000 X10*3/uL (0.0-0.012); NRBC Pct Auto 0.0 /100WBC (0.0-0.2); Platelet Count 206 X10*3/uL (160-400); Red Blood Count 3.80 X10*6/uL (4.20-5.50); SCAN SMEAR FLAG 1; White Blood Count 15.2 X10*3/uL (4.8-10.8)
[2025-02-02 06:46] LABS: Anion Gap 14 (12-20); Blood Urea Nitrogen 20 mg/dL (9-16); Calcium 8.8 mg/dL (8.4-10.2); Carbon Dioxide 24 mmol/L (22-29); Chloride 107 mmol/L (96-108); Creatinine Clr Calc Pharmacy 44.9; Estimated Glomerular Filt Rate 45; Potassium 3.5 mmol/L (3.3-5.1); Sodium 141 mmol/L (135-145)
[2025-02-02] MEDS: 0.9 % Sodium Chloride Flush 3 ML SYRINGE IVFLUSH ×3 (07:38→20:40)
[2025-02-02 07:41] VITALS: BP 147/69; PULSE 80; RESP 16; TEMP 37; O2SAT 94
--- NOTE | 2025-02-02 08:24 | PM.PNORT ---
Subjective Subjective Date of Service: 02/02/25 Interval history: Postop day 1 status post left total knee arthroplasty 02/01/[address] Chavarria No overnight events Patient complaining of pain seen ambulating with physical therapy with walker No concerns other than uncontrolled pain Physical Exam Vital Signs: Vital Signs: Last Vital Signs Temp 98.6 F 02/02/25 07:41 Pulse 80 02/02/25 07:41 Resp 16 02/02/25 07:41 BP 147/69 H 02/02/25 07:41 Pulse Ox 94 02/02/25 07:41 O2 Del Method Room Air 02/02/25 07:41 O2 Flow Rate 2 02/01/25 13:46 BMI result Body Mass Index 26.9 Const: General: cooperative, healthy appearing and no acute distress Resp: Effort & Inspection: normal respiratory effort and able to speak in complete sentences Cardio: Rate: regular rate Peripheral pulses: Peripheral pulses 2+ throughout GI: Palpation (GI): Soft to palpation Skin: General skin exam: no rashes or lesions noted Extrem: Other: Patient is seen ambulating in the martinez with physical therapy weightbearing as tolerated with walker Bandage is clean dry and intact She is able to plantar flex and dorsiflex Neurovascularly intact Procedures Date of Service Date of Service: 02/02/25 Progress Note: A&P Assessment and plan (1) Status post total left knee replacement: Status: Acute Assessment and Plan: Pain control-oxycodone increased to 10 mg Physical therapy for left TKA weightbearing as tolerated, range of motion and quad strength Begin Lovenox for DVT prophylaxis due to CKD not tolerate aspirin Dispo pending PT clearance for home with VNA along with pain control Time Spent With Patient Time: Total time managing care of this patient today ____ minutes. Quality Stroke Does the patient have a stroke diagnosis?: No VTE Prior VTE?: No VTE Risk Level:: Surgical - very high VTE Device Contraindication: N/A - Device Ordered VTE Drug Contraindication: N/A - Med Ordered
--- NOTE | 2025-02-02 08:31 | HO.POSTANES ---
Post Anesthesia Evaluation Post Anesthesia Evaluation Date of Service: 02/02/25 Vital Signs: Vital Signs Temp Pulse Resp BP Pulse Ox O2 Del Method 02/02/25 07:41 98.6 F 80 16 147/69 H 94 Room Air 02/02/25 04:00 98.6 F 86 19 126/60 96 Room Air 02/01/25 23:32 97.6 F 90 16 142/67 H 95 Room Air Anesthesia: Spinal Mental Status: Awake Pain Control: Satisfactory Nausea/Vomiting: None Hydration: Adequate Anesthesia-Related Issues: No Anes. Related Issues
[2025-02-02] MEDS: oxyCODONE HCl ER 10 MG TAB.ER.12H PO ×2 (09:06→20:38)
[2025-02-02 10:54] VITALS: BP 138/60; PULSE 70; RESP 16; TEMP 37; O2SAT 93
[2025-02-02] MEDS: oxyCODONE HCl Immed Release 5 MG TABLET 10 MG PO ×2 (11:47→17:09)
--- NOTE | 2025-02-02 13:44 | MHC.CM.PN ---
DX Unilateral primary osteoarthritis L knee POD#1 S/P L TKA She lives with her spouse NEW HCP documented She is independent at baseline, no AD. [facility] referred by Ortho Navigator WILMAR peralta recommends Home with services. DP Home with [facility] via private transport home.
[2025-02-02 14:00] VITALS: BP 151/69; PULSE 71; RESP 16; TEMP 36.7; O2SAT 94
--- NOTE | 2025-02-02 14:20 | HO.PM.IMCN ---
History of Present Illness Data of Consult Service Date: 02/02/25 Primary Care Provider: Chanel Duarte MD [facility] Reason for consult: medical management 64-year-old female who presented to the hospital for scheduled left total knee arthroplasty on 02/01. Patient underwent left total knee arthroplasty on 02/[address] Chavarria, patient placed on Lovenox 40 mg subQ for DVT prophylaxis, suggested on physical therapy b.i.d. patient at this time states that she is experiencing pain, recently had pain medications adjusted by ortho. PT/OT at bedside, suggested on continuing physical therapy and patient may benefit from 1 more day in the hospital to help with pain control. Review of Systems Review of Systems: Fourteen point review of systems obtained, negative except as stated above PMFSH Medical History Back pain Anxiety Hard of hearing Depression Osteoarthritis Spinal stenosis Rheumatism Arthritis Kidney disease COPD (chronic obstructive pulmonary disease) Hypertension Other and unspecified hyperlipidemia Osteoporosis Personal history of nicotine dependence Family History Mother HTN (hypertension) Surgical History Hx of section Hx of arthroscopy of left knee History of biopsy of kidney H/O colonoscopy History of tubal ligation History of surgical removal of ganglion cyst History of right knee surgery Social History Are you a primary animal care technician to a significant other at home: No Do you presently have visiting nurse or other home services: No Alcohol intake: current Alcohol intake frequency: does not drink Patient Tobacco Use Status: Former Tobacco user Years Smoked: (onset 22yo, 1/2+ppd x 39yrs, 20pyh, occasional cigar now) Use of substances other than those prescribed or required for medical reasons: No Currently Displaying Signs/Symptoms of Drug Intoxication Withdrawal: No Have you been hit, kicked, punched, or otherwise hurt by someone within the past year? If so, by whom?: No Are you DNR?: No Advance Directives: No Advance Directives Information Provided: Yes Advance Directives on File: No Patient : No : No service: No Meds Allergies Allergy/AdvReac Type Severity Reaction Status Date / Time MARIALUISA Inhibitors Allergy Unknown Verified 01/28/25 10:10 Tramadol AdvReac Mild heart Uncoded 01/28/25 10:10 racing Active Medications: Current Medications Acetaminophen (Acetaminophen 325 Mg Tablet) 650 mg PO Q6H PRN PRN Reason: Pain, Mild 1-3,fever,headache Last Admin: 02/02/25 06:09 Dose: 650 mg Celecoxib (Celecoxib 200 Mg Capsule) 200 mg PO BID REPLACED BY [facility] Last Admin: 02/02/25 07:37 Dose: 200 mg Cinacalcet (Cinacalcet Hcl 30 Mg Tablet) 30 mg PO DAILY REPLACED BY [facility] Last Admin: 02/02/25 07:37 Dose: 30 mg Clonazepam (Clonazepam 0.5 Mg Tablet) 0.5 mg PO BEDTIME REPLACED BY [facility] Last Admin: 02/01/25 20:08 Dose: 0.5 mg Docusate Sodium (Docusate Sodium 100 Mg Capsule) 100 mg PO BID REPLACED BY [facility] Last Admin: 02/02/25 07:37 Dose: 100 mg Enoxaparin Sodium (Enoxaparin Sodium 40 Mg/0.4 Ml Syringe) 40 mg SUBCUT Q24H REPLACED BY [facility] Last Admin: 02/02/25 07:37 Dose: 40 mg Hydromorphone HCl (Hydromorphone Hcl 1 Mg/Ml Syringe) 0.25 mg IVPUSH Q4H PRN; Protocol PRN Reason: Pain, Severe (Pain Scale 7-10) Last Admin: 02/02/25 13:19 Dose: 0.25 mg Magnesium Hydroxide (Milk Of Magnesia 30 Ml Oral.Susp) 30 ml PO DAILY PRN PRN Reason: Constipation Omeprazole (Omeprazole 20 Mg Capsule.Dr) 20 mg PO DAILY@0630 REPLACED BY [facility] Last Admin: 02/02/25 06:12 Dose: 20 mg Ondansetron HCl (Ondansetron Hcl 4 Mg/2 Ml Vial) 4 mg IVPUSH Q8H PRN PRN Reason: Nausea and Vomiting Oxycodone HCl (Oxycodone Hcl Er 10 Mg Tab.Er.12h) 10 mg PO BID REPLACED BY [facility] Last Admin: 02/02/25 09:06 Dose: 10 mg Oxycodone HCl (Oxycodone Hcl Immed Release 5 Mg Tablet) 10 mg PO Q4H PRN PRN Reason: Pain, Moderate(Pain Scale 4-6) Last Admin: 02/02/25 11:47 Dose: 10 mg Prazosin HCl (Prazosin Hcl 1 Mg Capsule) 2 mg PO BEDTIME PRN; Protocol PRN Reason: Anxiety Quetiapine Fumarate (Quetiapine Fumarate 100 Mg Tablet) 100 mg PO BEDTIME PRN PRN Reason: Anxiety Sertraline HCl (Sertraline Hcl 100 Mg Tablet) 100 mg PO DAILY PRN PRN Reason: Anxiety Sodium Chloride (0.9 % Sodium Chloride Flush 3 Ml Syringe) 3 ml IVFLUSH QSHIFT REPLACED BY [facility] Last Admin: 02/02/25 07:38 Dose: 3 ml Home Medications ?Medication ?Instructions ?Recorded ?Confirmed ?Last Taken ?Type amlodipine 5 mg tablet 5 mg PO DAILY 11/22/20 02/01/25 02/01/25 History sertraline 100 mg tablet 100 mg PO DAILY PRN Anxiety 11/22/20 02/01/25 Unknown History clonazepam 0.5 mg tablet 0.5 mg PO BEDTIME 10/16/21 02/01/25 01/31/25 History quetiapine 100 mg tablet 100 mg PO BEDTIME PRN Anxiety 07/09/22 02/01/25 Unknown History rosuvastatin 40 mg tablet 40 mg PO DAILY 10/06/23 02/01/25 01/31/25 History omeprazole 20 mg capsule,delayed 20 mg PO DAILY@0630 01/03/25 02/01/25 02/01/25 History release prazosin 1 mg capsule 1 mg PO BEDTIME 02/01/25 02/01/25 01/31/25 History Physical Exam Vital Signs and Narrative: Vital Signs: Last Vital Signs Temp 98.6 F 02/02/25 10:54 Pulse 70 02/02/25 10:54 Resp 16 02/02/25 10:54 BP 138/60 02/02/25 10:54 Pulse Ox 93 02/02/25 10:54 O2 Del Method Room Air 02/02/25 10:54 O2 Flow Rate 2 02/01/25 13:46 BMI result Body Mass Index 26.9 General: AxOx3, No acute distress Head: AT/NC ENT: Moist mucous membranes Neck: supple CVS; RRR, S1 S2 normal Lungs: Clear bilateral breath sounds, no wheezes or crackles Abd: Soft non tender, non distended Ext: Left knee with dressing in place, tender MSK: moving all 4 limbs Skin: No cyanosis or edema Psych: Cooperative with exam Neurology: no focal deficit, hard of hearing Results Labs 02/02/25 05:56 02/02/25 05:56 Labs: Laboratory Results - last 24 hr 02/02/25 05:56 MCV 85.0 MCH 28.9 MCHC 34.1 RDW 13.3 Plt Count 206 MPV 10.7 Immature Gran % (Auto) 0.5 H Neut % (Auto) 76.6 H Lymph % (Auto) 12.4 L [place] % (Auto) 10.4 Eos % (Auto) 0.0 Baso % (Auto) 0.1 Lymph # (Auto) 1.9 [place] # (Auto) 1.6 H Eos # (Auto) 0.0 Baso # (Auto) 0.0 Abs Immat Gran (auto) 0.07 H Absolute Neuts (auto) 11.7 H Absolute Nucleated RBC 0.000 Nucleated RBC % (auto) 0.0 Smear Tech's Comments VERIFIED Anion Gap 14 Estim Creat Clear Calc 44.9 Estimated GFR 45 Fasting Glucose 119 H Calcium 8.8 D Assessment and Plan (1) Essential hypertension: Status: Acute (2) Osteoporosis: Qualifiers: Osteoporosis type: age-related Status: Acute (3) Status post total left knee replacement: Status: Acute (4) Arthritis of left knee: Status: Acute Plan Assessment: 64-year-old female who presented to the hospital for elective total knee arthroplasty on 02/01. Impression Left knee DJD status post total left knee replacement Leukocytosis, likely reactive in the setting of above Mood disorder, chronic, stable Ambulatory dysfunction secondary to DJD status post orthopedic surgery Hypertension, chronic Plan Imaging reviewed with needs a left total knee replacement in satisfactory position. Continue with multimodal pain management with Celebrex, hydromorphone and oxycodone Continue clonazepam, prazosin, quetiapine and sertraline Continue PT/OT Fall precautions Continue with wound care per Wound Care as well as Orthopedic surgery recommendations Continue rest of management per Orthopedic surgery At this time, not on any BP meds, will closely monitor and initiate accordingly We will continue to follow as needed Disposition: All questions and concerns with the patient were answered to satisfaction. All pertinent clinical documents, images and labs were reviewed. DISCLAIMER: This document was created using voice recognition software. Any mistakes in the prescription are unintentional. An attempt was made to focus for accuracy, but to expedite availability, some errors may persist. Please contact with any need for correction or further clarification Total time managing care of this patient today: 55 minutes.
[2025-02-02 18:00] VITALS: BP 127/63; PULSE 82; RESP 19; TEMP 36.8; O2SAT 94
[2025-02-02 21:35] VITALS: BP 127/60; PULSE 75; RESP 18; TEMP 36.7; O2SAT 95
[2025-02-03 02:00] VITALS: BP 134/63; PULSE 80; RESP 15; TEMP 36.7; O2SAT 92
[2025-02-03 05:36] VITALS: RESP 18
[2025-02-03 06:00] VITALS: BP 144/62; PULSE 80; RESP 15; TEMP 36.7; O2SAT 92
[2025-02-03 06:17] LABS: MANUAL DIFF FLAG NO
[2025-02-03 06:35] LABS: Anion Gap 13 (12-20); Blood Urea Nitrogen 24 mg/dL (9-16); Calcium 8.8 mg/dL (8.4-10.2); Carbon Dioxide 25 mmol/L (22-29); Chloride 107 mmol/L (96-108); Creatinine Clr Calc Pharmacy 37.7; Estimated Glomerular Filt Rate 37; Potassium 3.6 mmol/L (3.3-5.1); Sodium 141 mmol/L (135-145)
[2025-02-03 06:42] LABS: Hematocrit 30.9 % (37.0-47.0); Hemoglobin 10.6 g/dl (12.0-16.0); Imm Gran Abs Auto 0.04 X10*3/uL (0.00-0.03); Imm Gran Pct Auto 0.4 % (0.0-0.4); Lymphocytes Absolute Auto 2.1 X10*3/uL (1.2-4.9); Mean Corpuscular HGB Conc 34.3 g/dl (31.0-35.0); Mean Corpuscular Hemoglobin 29.6 pg (27.0-33.0); Mean Corpuscular Volume 86.3 fL (80.0-98.0); NRBC Abs Auto 0.000 X10*3/uL (0.0-0.012); NRBC Pct Auto 0.0 /100WBC (0.0-0.2); Platelet Count 182 X10*3/uL (160-400); Red Blood Count 3.58 X10*6/uL (4.20-5.50); White Blood Count 11.2 X10*3/uL (4.8-10.8)
[2025-02-03 07:23] VITALS: BP 117/60; PULSE 77; RESP 16; TEMP 36; O2SAT 92
[2025-02-03] MEDS: oxyCODONE HCl ER 10 MG TAB.ER.12H PO (08:15)
[2025-02-03] MEDS: 0.9 % Sodium Chloride Flush 3 ML SYRINGE IVFLUSH (08:17)
--- NOTE | 2025-02-03 08:26 | MHC.CM.PN ---
Patient medically cleared for dc home w/ new [facility] for PT. Private transport.
[2025-02-03 10:22] VITALS: BP 137/64; PULSE 76; RESP 16; TEMP 36.1; O2SAT 96
== END 2025-02-03 11:07 | disposition home health service (06) ==
LOC: HO.SSS 07:35 → HO.S3 11:19
PROVIDERS: Physician Assistant; PCP Internal Medicine; Visit Provider Orthopaedic Surgery
PROC: (CPT 27447; principal; 2025-02-01 07:30)
DX: M17.12 Unilateral primary osteoarthritis, left knee (principal); M25.562 Pain in left knee; R26.2 Difficulty in walking, not elsewhere classified; M81.0 Age-related osteoporosis without current pathological fracture; I12.9 Hypertensive chronic kidney disease with stage 1 through stage 4 chronic kidney disease, or unspecified chronic kidney disease; N18.4 Chronic kidney disease, stage 4 (severe); M79.0 Rheumatism, unspecified; M48.00 Spinal stenosis, site unspecified; M54.9 Dorsalgia, unspecified; J44.9 Chronic obstructive pulmonary disease, unspecified; E78.5 Hyperlipidemia, unspecified; F32.A Depression, unspecified; F41.9 Anxiety disorder, unspecified; Z79.899 Other long term (current) drug therapy; Z88.8 Allergy status to other drugs, medicaments and biological substances; Z88.5 Allergy status to narcotic agent; Z87.891 Personal history of nicotine dependence
CPT/HCPCS: 27447; 36415; 73560; 80048; 85014; 85018; 85025; 86850; 86900; 86901; 87640; 87641; 88305; 88311; 93005; 97110; 97116; 97162; 97530; C1713; C1776; J0131; J0665; J0690; J1100; J1171; J1650; J2003; J2151; J2250; J2371; J2704; J3010; J7120

== ENCOUNTER → 2025-02-01 05:48 | Outpatient (BNV) | payer OTHER, SELFPAY | PROVIDERS: PCP Internal Medicine; Visit Provider Orthopaedic Surgery | DX: Z96.652 Presence of left artificial knee joint (principal) | CPT/HCPCS: 27447; 99024; G0180 ==

== ENCOUNTER → 2025-02-01 05:48 | Outpatient (BNV) | payer OTHER, SELFPAY | PROVIDERS: PCP Internal Medicine; Visit Provider Student in an Organized Health Care Education/Training Program | DX: I10 Essential (primary) hypertension (principal); M81.0 Age-related osteoporosis without current pathological fracture; Z96.652 Presence of left artificial knee joint; M17.12 Unilateral primary osteoarthritis, left knee | CPT/HCPCS: 99222 ==

== ENCOUNTER → 2025-02-01 10:10 | Outpatient (BNV) | payer OTHER, SELFPAY | PROVIDERS: PCP Internal Medicine; Visit Provider Radiology Diagnostic Radiology | DX: Z96.652 Presence of left artificial knee joint (principal) | CPT/HCPCS: 73560 ==

== ENCOUNTER 2025-02-17 09:23 | Outpatient (AMB) | payer OTHER, SELFPAY ==
--- NOTE | 2025-02-17 09:36 | A.OFFVIS_ITS ---
Intake Visit Reasons: 2WKPO: L TKA w/NE 02/01/25 Intake Note: Sisi is a 64 year old venezuelan speaking female who presents today as a two week PO: L TKA w/NE 02/01/25. Patient states she is having pain mainly in the night time. States her pain is in her lateral and medial aspect of knee. She is having a hard time sleeping since she is a side sleeper, she is not able to find a comfortable position to sleep. Power Reactor Operator Required: Yes Power Reactor Operator Name: Jyoti BAPTISTEA/NEETU Allergies MARIALUISA Inhibitors Allergy (Verified 02/17/25 09:44) Unknown Tramadol Adverse Reaction (Mild, Uncoded 02/17/25 09:44) heart racing Medication List - Last Reconciled 02/17/25 by Nancy Ambrose PA-C acetaminophen 650 mg (2 x 325 mg) PO Q6H PRN 30 days amlodipine 5 mg PO DAILY cane As directed celecoxib 200 mg PO BID 30 days cinacalcet 30 mg PO DAILY clonazepam 0.5 mg PO BEDTIME docusate sodium 100 mg PO BID 7 days enoxaparin 40 mg (0.4 mL) subcut Q24H 42 days [Folding Front Wheeled walker Duration: 99 days] [Grab Bar As directed] omeprazole 20 mg PO DAILY@0630 oxycodone 10 mg PO Q4H PRN 7 days prazosin 1 mg PO BEDTIME quetiapine 100 mg PO BEDTIME PRN rosuvastatin 40 mg PO DAILY sertraline 100 mg PO DAILY PRN HPI HPI 2WKPO: L TKA w/NE 02/01/25: Details: 64-year-old female returns to the office today status post left total knee arthroplasty on 02/01/[address] Chavarria. She is doing well working with home physical therapy. Her home PT and tomorrow and she will transition to outpatient physical therapy. [facility] Medical History Back pain Anxiety Hard of hearing Depression Osteoarthritis Spinal stenosis Rheumatism Arthritis Kidney disease COPD (chronic obstructive pulmonary disease) Hypertension Other and unspecified hyperlipidemia Osteoporosis Personal history of nicotine dependence Surgical History Hx of section Hx of arthroscopy of left knee History of biopsy of kidney H/O colonoscopy History of tubal ligation History of surgical removal of ganglion cyst History of right knee surgery Family History Mother HTN (hypertension) Social History Are you a primary direct care specialist to a significant other at home: No Do you presently have visiting nurse or other home services: No Alcohol intake: current Alcohol intake frequency: does not drink Patient Tobacco Use Status: Former Tobacco user Years Smoked: (onset 22yo, 1/2+ppd x 39yrs, 20pyh, occasional cigar now) service: No Review of Systems Const All systems reviewed & are unremarkable except as noted in HPI and below Physical Exam Extrem Other: Left knee incision is clean dry and intact. No erythema or drainage. Range of motion is-5-90 90 degrees. She is able to activate the quad. Calf is supple and nontender neurovascularly intact. Assessment & Plan Assessment & Plan (1) Status post total left knee replacement: Code(s): Z96.652 - Presence of left artificial knee joint Category: Surgical Plan: Streeter removed today Steri-Strips applied. The patient will continue working with physical therapy to improve range of motion strength and gait training. I placed an order for physical therapy and she will call to make an appointment. I reminded the patient no dental work until 3 months post op and he will require antibiotics for dental prophylaxis. Patient was reminded no driving until 6 weeks postop. They will return in 4 weeks for routine follow up, sooner if needed. Orders: Orders PT Evaluation and Treatment Today Z96.652 - Presence of left artificial knee joint Coding Level of Care Code Global (10284) Diagnoses Status post total left knee replacement Z96.652
--- OUTSIDE RECORDS SUMMARY | 2025-02-17 12:17 | XMS_ITS | Clinical Summary ---
Author Organization [facility] Address [address] [place] [address] Phone Care Team Providers Care Toll Bridge Operator Name Role Phone Chanel Duarte MD [...] age to complete this topic Insurance ([id number]) [place] [address] ([id number]) Care Teams Toll Bridge Operator Relationship Specialty Start Date End Date Chanel Duarte MD [address] [place] [address] PCP - General 04/10/20
== END 2025-02-17 10:04 | disposition home or self-care (01) ==
LOC: HO.HOS 09:24
PROVIDERS: PCP Internal Medicine; Visit Provider Physician Assistant
DX: Z96.652 Presence of left artificial knee joint (principal)
CPT/HCPCS: 99024

== ENCOUNTER → 2025-02-17 09:23 | Outpatient (BNVA) | payer OTHER, SELFPAY | PROVIDERS: PCP Internal Medicine; Visit Provider Physician Assistant | DX: Z47.1 Aftercare following joint replacement surgery (principal); Z96.652 Presence of left artificial knee joint | CPT/HCPCS: 99212 ==

== ENCOUNTER 2025-02-22 13:07 | Outpatient (REF) | payer OTHER, SELFPAY ==
--- OUTSIDE RECORDS SUMMARY | 2025-02-22 16:54 | XMS_ITS | Clinical Summary ---
Author Organization [facility] Address [address] [place] [address] Phone Care Team Providers Care Glove Factory Sewer Name Role Phone Chanel Duarte MD Primary [...] age to complete this topic Insurance ([id number]) [place] [address] ([id number]) Care Teams Glove Factory Sewer Relationship Specialty Start Date End Date Chanel Duarte MD [address] [place] [address] PCP - General 04/10/20
[2025-02-22 18:57] LABS: Creatinine, mg/dL 66.03
[2025-02-22 18:59] LABS: Creatinine, mg/dL 66.35; Uric Acid, mg/dL 21.3 mg/dL
[2025-02-22 19:06] LABS: Total Volume 24 Hour Urine 1925 mL
[2025-02-22 19:42] LABS: Creatinine, mg/dL 64.43; Sodium, 24 Hr Urine 53.0 mmol/L
[2025-02-23 17:58] LABS: Calcium/Creatinine Ratio 76 mg/g creat (30-275); Creatinine 24Hr Urine 1.27 g/24 h (0.50-2.15)
[2025-02-27 10:43] LABS: 24hr Urine Total Volume 1925 mL; Citric Acid, 24hr Urine 17 mg/24 h (100-1300); Citric Acid/Creat Ratio 24U 13 mg/g creat (180-1070); Creatinine, 24U 1.31 g/24 h (0.50-2.15)
[2025-03-03 19:58] LABS: 24hr Urine Total Volume 1925 mL; Oxalic Acid 24 Urine 17.0 mg/24 h (3.6-38.0)
== END 2025-02-22 13:08 | disposition home or self-care (01) ==
LOC: HO.HKASLDS 13:07
PROVIDERS: PCP Internal Medicine; Visit Provider Internal Medicine Hypertension Specialist
DX: N18.30 Chronic kidney disease, stage 3 unspecified (principal)
CPT/HCPCS: 82340; 82507; 82570; 83945; 84300; 84560

== ENCOUNTER 2025-02-23 08:24 | Outpatient (REF) | payer OTHER, SELFPAY ==
--- OUTSIDE RECORDS SUMMARY | 2025-02-23 08:46 | XMS_ITS | Clinical Summary ---
Author Organization [facility] Address [address] [place] [address] Phone Care Team Providers Care Isolation Washer Name Role Phone Chanel Duarte MD Primary Care Provider [phone] Allergies No known active allergies Medications amLODIPine [...] age to complete this topic Insurance ([id number]) [place] [address] ([id number]) Care Teams Isolation Washer Relationship Specialty Start Date End Date Chanel Duarte MD [address] [place] [address] PCP - General 04/10/20
[2025-02-23 13:52] LABS: Anion Gap 11 (12-20); Carbon Dioxide 23 mmol/L (22-29); Chloride 111 mmol/L (96-108); Estimated Glomerular Filt Rate 29; Potassium 4.0 mmol/L (3.3-5.1); Sodium 141 mmol/L (135-145)
[2025-02-23 14:00] LABS: Appearance Urine Clear; Glucose Urine UA Negative (Negative); PH 5.0 (5.0-9.0); Specific Gravity - Urine 1.015 (1.005-1.025); UMIC TRIGGER UA YES
== END 2025-02-23 08:25 | disposition home or self-care (01) ==
LOC: HO.HKASLDS 08:24
PROVIDERS: PCP Internal Medicine; Visit Provider Internal Medicine Hypertension Specialist
DX: N18.30 Chronic kidney disease, stage 3 unspecified (principal); E87.0 Hyperosmolality and hypernatremia; N17.9 Acute kidney failure, unspecified
CPT/HCPCS: 36415; 80051; 81001; 81003; 82565

== ENCOUNTER 2025-03-09 09:04 | Outpatient (REF) | payer OTHER, SELFPAY ==
[2025-03-09 13:53] LABS: Appearance Urine Clear; Glucose Urine UA Negative (Negative); PH 5.5 (5.0-9.0); Specific Gravity - Urine 1.015 (1.005-1.025); UMIC TRIGGER UA YES
[2025-03-09 13:59] LABS: Hematocrit 34.8 % (37.0-47.0); Hemoglobin 11.4 g/dl (12.0-16.0); Mean Corpuscular HGB Conc 32.8 g/dl (31.0-35.0); Mean Corpuscular Hemoglobin 28.7 pg (27.0-33.0); Mean Corpuscular Volume 87.7 fL (80.0-98.0); NRBC Abs Auto 0.000 X10*3/uL (0.0-0.012); NRBC Pct Auto 0.0 /100WBC (0.0-0.2); Platelet Count 233 X10*3/uL (160-400); Red Blood Count 3.97 X10*6/uL (4.20-5.50); White Blood Count 7.2 X10*3/uL (4.8-10.8)
[2025-03-09 14:24] LABS: Anion Gap 15 (12-20); Blood Urea Nitrogen 33 mg/dL (9-16); Calcium 9.7 mg/dL (8.4-10.2); Carbon Dioxide 23 mmol/L (22-29); Chloride 111 mmol/L (96-108); Estimated Glomerular Filt Rate 22; Potassium 4.5 mmol/L (3.3-5.1); Sodium 144 mmol/L (135-145)
[2025-03-09 14:46] LABS: Total Protein Urine Random 155 mg/dL (<12)
[2025-03-09 14:52] LABS: Parathyroid Hormone Intact 36.9 pg/mL (8.7-77.1)
== END 2025-03-09 09:05 | disposition home or self-care (01) ==
LOC: HO.HKASLDS 09:04
PROVIDERS: PCP Internal Medicine; Visit Provider Internal Medicine Hypertension Specialist
DX: I12.9 Hypertensive chronic kidney disease with stage 1 through stage 4 chronic kidney disease, or unspecified chronic kidney disease (principal); N18.30 Chronic kidney disease, stage 3 unspecified; E83.52 Hypercalcemia; E87.0 Hyperosmolality and hypernatremia; E87.6 Hypokalemia; Z87.442 Personal history of urinary calculi; Z79.899 Other long term (current) drug therapy; Z87.891 Personal history of nicotine dependence
CPT/HCPCS: 36415; 80048; 81001; 82570; 83970; 84156; 85027; 99212

== ENCOUNTER 2025-03-09 09:04 | Outpatient (AMB) | payer OTHER, SELFPAY ==
--- NOTE | 2025-03-09 09:13 | HO.NEPHOV ---
Vital Signs 03/09/25 09:14 Height 5 ft 3 in Weight 144 lb BMI 25.5 BP 124/72 Blood Pressure Location Lt brachial Position Sitting Pulse 73 Pulse Source Pulse Oximeter Pulse Oximetry (%) 97 Oxygen Delivery Method Room Air Intake Visit Reasons: 6-8wks f/u w/labs Foundation Relations Manager Required: Yes Foundation Relations Manager Name: niharika [id number] Accompanied by: Spouse Allergies MARIALUISA Inhibitors Allergy (Verified 03/09/25 09:16) Unknown Tramadol Adverse Reaction (Mild, Uncoded 02/17/25 09:44) heart racing Medication List - Last Reconciled 03/09/25 by Rylan Crouch MD acetaminophen 650 mg (2 x 325 mg) PO Q6H PRN 30 days amlodipine 5 mg PO DAILY cane As directed celecoxib 200 mg PO BID 30 days cinacalcet 30 mg PO DAILY clonazepam 0.5 mg PO BEDTIME docusate sodium 100 mg PO BID 7 days enoxaparin 40 mg (0.4 mL) subcut Q24H 42 days [Folding Front Wheeled walker Duration: 99 days] [Grab Bar As directed] omeprazole 20 mg PO DAILY@0630 oxycodone 10 mg PO Q4H PRN 7 days prazosin 1 mg PO BEDTIME quetiapine 100 mg PO BEDTIME PRN rosuvastatin 40 mg PO DAILY sertraline 100 mg PO DAILY PRN HPI Comments Details: Middle-aged woman with history of hypertension and stage III chronic disease. Her baseline serum creatinine from 1.2 mg/dL. She had a kidney biopsy back in 2020 which showed acute tubular injury with mild interstitial nephritis. 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 She was in [place] last month. At that time she was found to have hypercalcemia with a calcium 11.0. She also sustained acute kidney injury with the creatinine bumping up to 1.44. Labs as of labs when 10/17/2022 revealed a creatinine 1.8 and she had mild hyper natremia with a sodium of 146 and mild hypokalemia. She is on Lasix 20 mg q.d.. She denies taking any NSAIDs or Garg inhibitors. She denies any urinary symptoms. Foundation Relations Manager service was used 03/18/23;Feels better ;Off Lasix 05/11/23; REcently went to [place]; Had leg edema and visited ER. No dyspnea; No further edema 06/03/23: No new issues besides feeling tired ;No edema 01/01/24 ;REcently went to [place] ;Had back pain x 1 month ;Went to ER ;No NSAIDS ;NO imaging recently ;In 2022, CT showed multiple stones. 01/26/25 - The patient is a 64-year-old female presenting with chronic kidney disease and nephrolithiasis. - Chronic Kidney Disease: Creatinine level around 1.4 mg/dL. Kidney biopsy in 2020 showed acute tubular injury and chronic vascular changes. - Nephrolithiasis: Hospitalized for kidney stones few weks ago, treated with morphine and fluids, ultrasound performed, stone not yet passed. Waiting for knee surgery on Feb 01 for severe OA 03/09/25 The patient is a 64 year old female presenting for a follow-up visit for management of chronic kidney disease, stage 3, hypertension, and nephrolithiasis, especially following her recent knee surgery. Chronic Kidney Disease, Stage 3: The patient has a history of chronic kidney disease, stage 3, with a creatinine level of 1.75 in January. She has experienced a slight decline in kidney function following a recent knee surgery, which is attributed to the surgery and pain medications used postoperatively. The patient reports finding it difficult to drink plain water due to discomfort she associates with her medications. Hypertension: The patient has a history of hypertension, which was noted to be well-controlled at the time of the visit. Nephrolithiasis: The patient has a history of nephrolithiasis, which was mentioned but not discussed in detail. Postoperative Status: The patient is recovering well from a recent knee surgery. Postoperatively, she was prescribed Celebrex for one month by her surgeon, which she has completed. She currently manages her pain with Tylenol in the morning and at night. She reported transient difficulty with urination immediately after the surgery, which she attributed to anesthesia, but this has resolved, and she is now urinating normally. She is also using an unspecified injection and has eight doses remaining. [facility] Medical History Back pain Anxiety Hard of hearing Depression Osteoarthritis Spinal stenosis Rheumatism Arthritis Kidney disease COPD (chronic obstructive pulmonary disease) Hypertension Other and unspecified hyperlipidemia Osteoporosis Personal history of nicotine dependence Surgical History Hx of section Hx of arthroscopy of left knee History of biopsy of kidney H/O colonoscopy History of tubal ligation History of surgical removal of ganglion cyst History of right knee surgery Family History Mother HTN (hypertension) Social History Are you a primary palliative care specialist to a significant other at home: No Do you presently have visiting nurse or other home services: No Alcohol intake: current Alcohol intake frequency: does not drink Patient Tobacco Use Status: Former Tobacco user Years Smoked: (onset 22yo, 1/2+ppd x 39yrs, 20pyh, occasional cigar now) service: No Physical Exam Vital Signs: Last Vital Signs Pulse 73 03/09/25 09:14 BP 124/72 03/09/25 09:14 Pulse Ox 97 03/09/25 09:14 Oxygen Delivery Method Room Air 03/09/25 09:14 BMI result Body Mass Index 25.5 Comfortable Neck supple no JVD. Lungs entry equal no rales. Heart S1-S2 heard no gallop or rub. Abdomen soft nontender. Neuro alert awake oriented. No asterixis. Extremities no edema. Results Reviewed Results Reviewed: Dec 2023: IMPRESSION: 1. Multiple bilateral nonobstructive renal calculi. 2. Multiple benign-appearing bilateral renal cysts, some of which demonstrate peripheral calcifications and/or layering milk of calcium. Follow-up as clinically warranted. Nephrology Results: Hgb, (12.0-16.0) 10.6 g/dl L 02/03/25 WBC, (4.8-10.8) 11.2 X10*3/uL H 02/03/25 Plt Count, (160-400) 182 X10*3/uL 02/03/25 Sodium, (135-145) 141 mmol/L 02/23/25 Potassium, (3.3-5.1) 4.0 mmol/L 02/23/25 Chloride, (96-108) 111 mmol/L H 02/23/25 Carbon Dioxide, (22-29) 23 mmol/L 02/23/25 BUN, (9-16) 24 mg/dL H 02/03/25 Creatinine, (0.5-1.4) 1.75 mg/dL H 02/23/25 Calcium, (8.4-10.2) 8.8 mg/dL 02/03/25 Urine Protein, (Neg-Trace) 100 (2+) mg/dL H 02/22/25 Renal US 01/26/24 Assessment & Plan Assessment & Plan (1) CKD (chronic kidney disease) stage 3, GFR 30-59 ml/min: Code(s): N18.30 - Chronic kidney disease, stage 3 unspecified Category: Medical (2) MARY (acute kidney injury): Code(s): N17.9 - Acute kidney failure, unspecified Category: Medical (3) Hypercalcemia: Code(s): E83.52 - Hypercalcemia Category: Medical (4) Hypernatremia: Code(s): E87.0 - Hyperosmolality and hypernatremia Category: Medical (5) Hypokalemia: Code(s): E87.6 - Hypokalemia Category: Medical Plan Middle-aged woman with hypertension- acute kidney injury superimposed on chronic disease along with hypercalcemia. CT scan in the past revealed nonobstructive to renal calculi. s/p MARY Hypoperfusion from volume depletion secondary to use of Lasix- especially since she has hypernatremia and hypokalemia. Creatinine improved after stopping LASIX/Lisinopril Lasix has been added Cr has bumped up again STOPPED Lasix and cr improved. Increase her to increase fluid intake. Creatinine is upto 1.75 Probably fro m Hypoperfusion from CElebrex 200 mg BID Off celebrex now REcheck renal panel today Avoids NSAIDS/Garg-2 inhibitors s/p hypercalcemia. PTH elevated and serum electrophoresis is normal. Other serologies normal Keep Cinacalcet 30 mg Q D h/o Bilateral renal stones Needs to stay on low salt diet Increase PO Fluids s/p Hypernatremia due to insufficient fluid intake Encouraged to increase free water intake. Orders: Orders Basic Metabolic Panel 3 Months N17.9 - Acute kidney failure, unspecified, N18.30 - Chronic kidney disease, stage 3 unspecified Complete Blood Count no Diff Today N17.9 - Acute kidney failure, unspecified, N18.30 - Chronic kidney disease, stage 3 unspecified Parathyroid Hormone Intact Today N17.9 - Acute kidney failure, unspecified, N18.30 - Chronic kidney disease, stage 3 unspecified Total Protein Urine Random Today N17.9 - Acute kidney failure, unspecified, N18.30 - Chronic kidney disease, stage 3 unspecified Creatinine Urine Today N17.9 - Acute kidney failure, unspecified, N18.30 - Chronic kidney disease, stage 3 unspecified Basic Metabolic Panel Today N18.30 - Chronic kidney disease, stage 3 unspecified UA and rflx microscopic Today N17.9 - Acute kidney failure, unspecified, N18.30 - Chronic kidney disease, stage 3 unspecified Medications: Discontinued celecoxib Discontinued Reason: Doctor's Order 200 mg PO BID 30 days 60 caps 0RF Coding Level of Care Code Est Pt Level 4 (59724) Diagnoses CKD (chronic kidney disease) stage 3, GFR 30-59 ml/min N18.30 MARY (acute kidney injury) N17.9 Hypercalcemia E83.52 Hypernatremia E87.0 Hypokalemia E87.6
[2025-03-09 09:14] VITALS: BP 124/72; PULSE 73; O2SAT 97; BMI 25.5
== END 2025-03-09 09:33 | disposition home or self-care (01) ==
LOC: HO.HKAS 09:05
PROVIDERS: PCP Internal Medicine; Visit Provider Internal Medicine Hypertension Specialist
DX: N18.30 Chronic kidney disease, stage 3 unspecified (principal); N17.9 Acute kidney failure, unspecified; E83.52 Hypercalcemia; E87.0 Hyperosmolality and hypernatremia; E87.6 Hypokalemia
CPT/HCPCS: 99214

== ENCOUNTER 2025-03-17 14:11 | Outpatient (AMB) | payer OTHER, SELFPAY ==
--- NOTE | 2025-03-17 14:29 | MHC.OFFVIS ---
Intake Visit Reasons: 6WKPO: L TKA w/NE 02/01/25 Intake Note: Sisi is a 64 year old female who presents today for a post operative appointment about 6 weeks s/p Left TKA 02/01/25. She is working with [facility]. Allergies MARIALUISA Inhibitors Allergy (Verified 03/09/25 09:16) Unknown Tramadol Adverse Reaction (Mild, Uncoded 02/17/25 09:44) heart racing HPI HPI 6WKPO: L TKA w/NE 02/01/25: Details: Sisi is a 64 year old female who presents today for a post operative appointment about 6 weeks s/p Left TKA 02/01/25. She is working with [facility]. HPI Comments Details: Interval History The patient is a 64-year-old female presenting for follow-up after left total knee arthroplasty performed on 02/01/25. She reports that she has been focusing on stretching and trying to improve her range of motion. She has not been using her knee as much as she should and is encouraged to do so more frequently. The patient has been informed that in six weeks, her knee should be almost back to normal function. Results [facility] Medical History (Updated 03/21/25 @ 08:47 by Darcy Maddox PA-C) Arthritis of left knee Essential hypertension Back pain Anxiety Hard of hearing Depression Osteoarthritis Spinal stenosis Rheumatism Arthritis Kidney disease COPD (chronic obstructive pulmonary disease) Hypertension Other and unspecified hyperlipidemia Osteoporosis Personal history of nicotine dependence Surgical History Hx of section Hx of arthroscopy of left knee History of biopsy of kidney H/O colonoscopy History of tubal ligation History of surgical removal of ganglion cyst History of right knee surgery Family History Mother HTN (hypertension) Social History Are you a primary child care coordinator to a significant other at home: No Do you presently have visiting nurse or other home services: No Alcohol intake: current Alcohol intake frequency: does not drink Patient Tobacco Use Status: Former Tobacco user Years Smoked: (onset 22yo, 1/2+ppd x 39yrs, 20pyh, occasional cigar now) service: No Physical Exam Exam Exam: Physical Exam Assessment & Plan Assessment & Plan (1) Status post total left knee replacement: Code(s): Z96.652 - Presence of left artificial knee joint Category: Surgical Plan Plan 1. Left Total Knee Arthroplasty Post-Operative Follow-Up The patient is advised to continue focusing on stretching exercises to improve her range of motion and to use her knee more frequently to aid in recovery. Follow-up is recommended in six weeks to assess progress and ensure the knee is returning to normal function. Discussion Notes During the visit, the importance of using the knee more frequently and engaging in stretching exercises was emphasized to the patient to enhance recovery post-surgery. The patient was informed that her knee should be almost back to normal function in six weeks, and she expressed understanding of the recovery expectations. Medications: New oxycodone Partial Fill upon patient request. 5 mg PO DAILY PRN 30 tabs 0RF pain Coding Level of Care Code Global (23956) Diagnoses Status post total left knee replacement Z96.652
--- OUTSIDE RECORDS SUMMARY | 2025-03-17 18:24 | XMS_ITS | Clinical Summary ---
Author Organization [facility] Address [address] [place] [address] Phone Care Team Providers Care Stopboard Assembler Name Role Phone Chanel Duarte MD Primary [...] age to complete this topic Insurance ([id number]) [place] [address] ([id number]) Care Teams Stopboard Assembler Relationship Specialty Start Date End Date Chanel Duarte MD [address] [place] [address] PCP - General 04/10/20
== END 2025-03-17 15:22 | disposition home or self-care (01) ==
LOC: HO.HOS 14:12
PROVIDERS: PCP Internal Medicine; Visit Provider Orthopaedic Surgery
DX: Z96.652 Presence of left artificial knee joint (principal)
CPT/HCPCS: 99024

== ENCOUNTER → 2025-03-17 14:11 | Outpatient (BNVA) | payer OTHER, SELFPAY | PROVIDERS: PCP Internal Medicine; Visit Provider Orthopaedic Surgery | DX: Z96.652 Presence of left artificial knee joint (principal) | CPT/HCPCS: 99212 ==